=== PATIENT | female | born 1940 | race Asian ===

== ENCOUNTER 2017-11-20 14:41 | Inpatient (IN) | payer MEDICARE, OTHER ==
[2017-11-20] MEDS: IPRATROPIUM (NEB) 0.5 MG/2.5 ML AMP INH (14:55)
[2017-11-20] MEDS: ALBUTEROL 0.5% (NEB) 2.5 MG/0.5 ML AMP INH (14:55)
[2017-11-20 15:58] LABS: ABNORMAL IP MESSAGE 1; HEMATOCRIT 30.8 % (37.0-47.0); HEMOGLOBIN 10.1 g/dl (12.0-16.0); MEAN CORPUSCULAR HGB CONC 32.8 g/dl (32.0-37.0); MEAN CORPUSCULAR VOLUME 100.7 fl (82.0-101.0); MEAN PLATELET VOLUME 12.8 fl (7.4-10.4); PLATELET COUNT 73 10^3/UL (140-415); RED BLOOD COUNT 3.06 10^6/ul (4.20-5.40); RED CELL DISTRIBUTION WIDTH 14.4 % (11.5-14.5)
[2017-11-20 16:02] LABS: ADD MAN DIFF? YES; POSITIVE DIFF @See below
[2017-11-20 16:14] LABS: INR 1.23; PROTIME 15.7 Sec (11.9-14.9); PT RATIO 1.2
[2017-11-20] MEDS: METHYLPREDNISOLONE 125 MG INJ IV (16:14)
[2017-11-20] MEDS: CEFEPIME 2GM/50 ML (PMX) 50 ML IVPB (16:14)
[2017-11-20 16:15] LABS: PARTIAL THROMBOPLASTIN TIME 49.2 Sec (25.0-35.0)
[2017-11-20 16:55] LABS: ANISOCYTOSIS 2+ (0-0); BAND NEUTROPHILS #M 2.5 10^3/ul (0.0-0.6); BAND NEUTROPHILS % (M) 14 % (0-4); LYMPHOCYTES #M 0.5 10^3/ul (0.8-2.9); LYMPHOCYTES % (M) 3 % (15-51); MONOCYTE #M 1.9 10^3/ul (0.3-0.9); MONOCYTES % (M) 11 % (0-11); PLATELET ESTIMATE DECREASED; POLYCHROMASIA 1+ (0-0); REACTIVE LYMPHOCYTES #M 0.1 10^3/ul (0.0-0.0); REACTIVE LYMPHOCYTES% (M) 1 % (0-0); SEG NEUT #M 13.2 10^3/ul (1.7-7.5); SEGMENTED NEUTROPHILS (M) % 71 % (39-77); SMUDGE%M 1 % (0-0); TARGET CELLS 2+ (0-0)
[2017-11-20 17:01] LABS: LACTIC ACID 1.4 mmol/L (0.5-2.0)
[2017-11-20 17:26] LABS: ALANINE AMINOTRANSFERASE 81 IU/L (13-69); ALBUMIN 4.6 g/dl (3.3-4.9); ALBUMIN/GLOBULIN RATIO 1.24; ALKALINE PHOSPHATASE 248 IU/L (42-121); ANION GAP 18 (8-16); ASPARTATE AMINO TRANSFERASE 117 IU/L (15-46); BILIRUBIN,INDIRECT 0.4 mg/dl (0-1.1); BILIRUBIN,TOTAL 0.4 mg/dl (0.2-1.3); BLOOD UREA NITROGEN 22 mg/dl (7-20); CALCIUM 8.6 mg/dl (8.4-10.2); CARBON DIOXIDE 33 mmol/L (21-31); CHLORIDE 89 mmol/L (97-110); CREATININE 2.42 mg/dl (0.44-1.00); GLUCOSE 161 mg/dl (70-220); POTASSIUM 3.3 mmol/L (3.5-5.1); SODIUM 137 mmol/L (135-144); TOTAL PROTEIN 8.3 g/dl (6.1-8.1)
[2017-11-20] MEDS: VANCOMYCIN 1 GM (PMX) 250 ML IVPB (17:32)
[2017-11-20 17:51] LABS: TROPONIN-I 0.542 ng/ml (0.00-0.12)
[2017-11-20] MEDS: ONDANSETRON 4 MG INJ IV (17:57)
[2017-11-20] MEDS ORDERED: ONDANSETRON 4 MG INJ IV (18:00)
[2017-11-20] MEDS: ASPIRIN 81 MG TAB PO (18:00)
[2017-11-20] MEDS ORDERED: ACETAMINOPHEN 325 MG TAB PO (18:00)
[2017-11-20] MEDS ORDERED: GLUCOSE GEL 15 GRAM TUBE BUCCAL (23:30)
[2017-11-20] MEDS ORDERED: GLUCAGON 1 MG INJ IM (23:30)
[2017-11-20] MEDS ORDERED: GLUCOSE GEL 15 GRAM TUBE PO ×2 (23:30)
[2017-11-20] MEDS ORDERED: DEXTROSE 50% 50 ML SYRINGE IV ×2 (23:30)
[2017-11-20] MEDS: INSULIN DETEMIR [LEVEMIR] 3ML CART SC (23:30)
[2017-11-21 00:08] LABS: LACTIC ACID 1.4 mmol/L (0.5-2.0)
[2017-11-21] MEDS: LEVOFLOXACIN 500MG/D5W (PMX) 100 ML IVPB (00:35)
[2017-11-21] MEDS: ACCU-CHEK XX (02:00)
[2017-11-21 02:02] LABS: LACTIC ACID 1.1 mmol/L (0.5-2.0)
[2017-11-21] MEDS: LEVOTHYROXINE 125 MCG TAB PO (07:00)
[2017-11-21] MEDS: INSULIN ASPART [NOVOLOG] 3 ML PEN SC ×4 (08:00→21:00)
[2017-11-21] MEDS ORDERED: VANCOMYCIN IV PER PHARMACY XX (08:30)
[2017-11-21 09:06] LABS: ADD MAN DIFF? NO
[2017-11-21 09:09] LABS: ABNORMAL IP MESSAGE 1; BASOPHIL # 0.1 10^3/ul (0.0-0.1); BASOPHILS % 0.8 % (0.0-2.0); HEMATOCRIT 32.3 % (37.0-47.0); HEMOGLOBIN 10.9 g/dl (12.0-16.0); LYMPHOCYTES # 0.2 10^3/ul (0.8-2.9); LYMPHOCYTES % 1.3 % (15.0-51.0); MEAN CORPUSCULAR HEMOGLOBIN 33.5 pg (29.0-33.0); MEAN CORPUSCULAR HGB CONC 33.7 g/dl (32.0-37.0); MEAN CORPUSCULAR VOLUME 99.4 fl (82.0-101.0); MEAN PLATELET VOLUME 12.6 fl (7.4-10.4); MONOCYTE # 0.8 10^3/ul (0.3-0.9); MONOCYTES % 4.9 % (0.0-11.0); NEUTROPHIL # 13.4 10^3/ul (1.6-7.5); NEUTROPHILS % 84.7 % (39.0-77.0); NUCLEATED RED BLOOD CELLS% 0.1 /100WBC (0.0-0.0); PLATELET COUNT 56 10^3/UL (140-415); RED BLOOD COUNT 3.25 10^6/ul (4.20-5.40); RED CELL DISTRIBUTION WIDTH 14.2 % (11.5-14.5)
[2017-11-21 09:09] LABS: WHITE BLOOD COUNT 15.8 10^3/ul (4.8-10.8)
[2017-11-21 09:20] LABS: POSITIVE DIFF @See below
[2017-11-21] MEDS: SEVELAMER CARBONATE 0.8 GM PKT PO ×3 (09:33→21:31)
[2017-11-21] MEDS: LISINOPRIL 10 MG TAB PO (09:34)
[2017-11-21] MEDS: FUROSEMIDE 40 MG TAB PO (09:34)
[2017-11-21] MEDS: AMLODIPINE 10 MG TAB PO (09:34)
[2017-11-21] MEDS: FOLIC ACID 1 MG TAB PO (09:34)
[2017-11-21] MEDS: MULTIVIT/CA CARB/B CMPLX/FA TAB PO (09:35)
[2017-11-21] MEDS: ALLOPURINOL 100 MG TAB PO (09:35)
[2017-11-21] MEDS: ASPIRIN (EC) 81 MG TAB PO (09:35)
[2017-11-21 10:46] LABS: ANISOCYTOSIS 2+ (0-0); BAND NEUTROPHILS #M 4.5 10^3/ul (0.0-0.6); BAND NEUTROPHILS % (M) 29 % (0-4); GIANT THROMBO% (M) 2 % (0-0); MYELOCYTES #M 0.1 10^3/ul (0.0-0.0); MYELOCYTES % (M) 1 % (0-0); PLATELET ESTIMATE SIG DECREASED; POLYCHROMASIA 2+ (0-0); SEG NEUT #M 11.8 10^3/ul (1.7-7.5); SEGMENTED NEUTROPHILS (M) % 70 % (39-77); TARGET CELLS 1+ (0-0)
[2017-11-21] MEDS: ACETAMINOPHEN 325 MG TAB PO (14:42)
[2017-11-21] MEDS: ALBUTEROL/IPRATROPIUM (NEB) 3 ML AMP HHN ×2 (17:11→21:00)
[2017-11-21 17:56] LABS: ADD UMIC YES; UR ASCORBIC ACID NEGATIVE (NEGATIVE); UR BACTERIA FEW /HPF (NONE SEEN); UR BILIRUBIN (Dip) 1+ mg/dL (NEGATIVE); UR BLOOD (Dip) 1+ mg/dL (NEGATIVE); UR CLARITY CLOUDY (CLEAR); UR COLOR AMBER (YELLOW); UR GLUCOSE (Dip) 1+ mg/dL (NEGATIVE); UR KETONES (Dip) TRACE mg/dL (NEGATIVE); UR LEUKOCYTE ESTERASE (Dip) TRACE Leu/ul (NEGATIVE); UR NITRITE (Dip) NEGATIVE (NEGATIVE); UR RBC 1 /HPF (0-5); UR SPECIFIC GRAVITY (Dip) 1.025 (1.003-1.030); UR SQUAMOUS EPITHELIAL CELL FEW /HPF (FEW); UR TOTAL PROTEIN (Dip) 2+ mg/dl (NEGATIVE); UR UROBILINOGEN (Dip) NEGATIVE (NEGATIVE); UR WBC 7 /HPF (0-5)
[2017-11-21] MEDS: ATORVASTATIN 40 MG TAB PO (21:31)
[2017-11-21] MEDS: INSULIN DETEMIR [LEVEMIR] 3ML CART SC (21:39)
[2017-11-22] MEDS: ALBUTEROL/IPRATROPIUM (NEB) 3 ML AMP HHN ×6 (00:40→21:16)
[2017-11-22] MEDS: ACCU-CHEK XX (02:00)
[2017-11-22 05:25] LABS: ABNORMAL IP MESSAGE 1; HEMATOCRIT 28.4 % (37.0-47.0); HEMOGLOBIN 9.4 g/dl (12.0-16.0); MEAN CORPUSCULAR HGB CONC 33.1 g/dl (32.0-37.0); MEAN CORPUSCULAR VOLUME 99.6 fl (82.0-101.0); MEAN PLATELET VOLUME 14.2 fl (7.4-10.4); NUCLEATED RED BLOOD CELLS% 0.1 /100WBC (0.0-0.0); PLATELET COUNT 55 10^3/UL (140-415); RED BLOOD COUNT 2.85 10^6/ul (4.20-5.40); RED CELL DISTRIBUTION WIDTH 14.3 % (11.5-14.5)
[2017-11-22 05:25] LABS: WHITE BLOOD COUNT 17.3 10^3/ul (4.8-10.8)
[2017-11-22 05:46] LABS: ANION GAP 20 (8-16); BLOOD UREA NITROGEN 50 mg/dl (7-20); CALCIUM 8.7 mg/dl (8.4-10.2); CARBON DIOXIDE 30 mmol/L (21-31); CHLORIDE 90 mmol/L (97-110); CREATININE 4.13 mg/dl (0.44-1.00); GLUCOSE 137 mg/dl (70-220); POTASSIUM 3.9 mmol/L (3.5-5.1); SODIUM 136 mmol/L (135-144)
[2017-11-22 05:59] LABS: VANCOMYCIN,RANDOM < 5.0 ug/ml
[2017-11-22 06:50] LABS: POSITIVE DIFF @See below
[2017-11-22 06:51] LABS: ADD MAN DIFF? YES
[2017-11-22] MEDS: LEVOTHYROXINE 125 MCG TAB PO (07:46)
[2017-11-22] MEDS: INSULIN ASPART [NOVOLOG] 3 ML PEN SC ×4 (07:50→21:00)
[2017-11-22] MEDS: SEVELAMER CARBONATE 0.8 GM PKT PO ×3 (09:14→21:00)
[2017-11-22] MEDS: MULTIVIT/CA CARB/B CMPLX/FA TAB PO (09:14)
[2017-11-22] MEDS: FUROSEMIDE 40 MG TAB PO (09:15)
[2017-11-22] MEDS: LISINOPRIL 10 MG TAB PO (09:15)
[2017-11-22] MEDS: ASPIRIN (EC) 81 MG TAB PO (09:15)
[2017-11-22] MEDS: ALLOPURINOL 100 MG TAB PO (09:15)
[2017-11-22] MEDS: FOLIC ACID 1 MG TAB PO (09:16)
[2017-11-22 10:33] LABS: ANISOCYTOSIS 1+ (0-0); BAND NEUTROPHILS #M 2.5 10^3/ul (0.0-0.6); BAND NEUTROPHILS % (M) 15 % (0-4); GIANT THROMBO% (M) 1 % (0-0); LYMPHOCYTES #M 0.3 10^3/ul (0.8-2.9); LYMPHOCYTES % (M) 2 % (15-51); METAMYELOCYTES #M 0.3 10^3/ul (0.0-0.0); METAMYELOCYTES %M 2 % (0-0); MONOCYTE #M 0.5 10^3/ul (0.3-0.9); MONOCYTES % (M) 3 % (0-11); MYELOCYTES #M 0.1 10^3/ul (0.0-0.0); MYELOCYTES % (M) 1 % (0-0); PLATELET ESTIMATE DECREASED; PLATELET MORPHOLOGY COMMENT @See below; POLYCHROMASIA 1+ (0-0); SEG NEUT #M 13.8 10^3/ul (1.7-7.5); SEGMENTED NEUTROPHILS (M) % 77 % (39-77); SMUDGE%M 3 % (0-0); TARGET CELLS 1+ (0-0)
[2017-11-22] MEDS: CEFTRIAXONE 1 GM/50 ML (PMX) 50 ML IVPB (11:28)
[2017-11-22] MEDS: VANCOMYCIN 1.25 GM in SOD CHLORIDE 0.45% 250 ML IVPB ×2 (12:13→12:15)
[2017-11-22 17:08] LABS: ABNORMAL IP MESSAGE 1; HEMATOCRIT 30.5 % (37.0-47.0); HEMOGLOBIN 10.2 g/dl (12.0-16.0); MEAN CORPUSCULAR HEMOGLOBIN 33.1 pg (29.0-33.0); MEAN CORPUSCULAR HGB CONC 33.4 g/dl (32.0-37.0); MEAN PLATELET VOLUME 13.3 fl (7.4-10.4); NUCLEATED RED BLOOD CELLS% 0.4 /100WBC (0.0-0.0); PLATELET COUNT 51 10^3/UL (140-415); RED BLOOD COUNT 3.08 10^6/ul (4.20-5.40); RED CELL DISTRIBUTION WIDTH 14.4 % (11.5-14.5)
[2017-11-22 17:08] LABS: WHITE BLOOD COUNT 13.6 10^3/ul (4.8-10.8)
[2017-11-22 17:10] LABS: POSITIVE DIFF @See below
[2017-11-22 17:11] LABS: ADD MAN DIFF? YES
[2017-11-22 17:45] LABS: ANION GAP 21 (8-16); BLOOD UREA NITROGEN 69 mg/dl (7-20); CARBON DIOXIDE 30 mmol/L (21-31); CHLORIDE 89 mmol/L (97-110); CREATININE 4.91 mg/dl (0.44-1.00); GLUCOSE 152 mg/dl (70-220); MAGNESIUM 1.8 mg/dl (1.7-2.5); PHOSPHORUS 1.8 mg/dl (2.5-4.9); POTASSIUM 4.1 mmol/L (3.5-5.1); SODIUM 136 mmol/L (135-144)
[2017-11-22] MEDS: DEXTROSE 5% 1,000 ML IV (18:09)
[2017-11-22 18:11] LABS: ANISOCYTOSIS 2+ (0-0); BAND NEUTROPHILS #M 1.2 10^3/ul (0.0-0.6); BAND NEUTROPHILS % (M) 9 % (0-4); ERYTHROBLAST% (NRBC) (M) 2 % (0-0); HYPOCHROMASIA 1+ (0-0); LYMPHOCYTES #M 0.9 10^3/ul (0.8-2.9); LYMPHOCYTES % (M) 7 % (15-51); MONOCYTE #M 0.5 10^3/ul (0.3-0.9); MONOCYTES % (M) 4 % (0-11); PLATELET ESTIMATE DECREASED; POLYCHROMASIA 2+ (0-0); SEG NEUT #M 10.9 10^3/ul (1.7-7.5); SEGMENTED NEUTROPHILS (M) % 79 % (39-77); SMUDGE%M 8 % (0-0)
[2017-11-22 18:19] LABS: AADO2 Arterial 95.6 mmHg (7.0-24.0); Allen Test ACCEPTAB; Arterial Base Excess 2.5 mmol/L (-3.0-3); Arterial Blood Gas Oxygen Sat 95.4 mmHG (95.0-100.0); Arterial COHb 0.3 % (0.0-3.0); Arterial HCO3 28.8 mmol/L (22.0-26.0); Arterial MetHb 0.1 % (0.0-1.5); Arterial Total Hemglobin 10.5 g/dl (12.0-18.0); Arterial pCO2 52.7 mmhg (35-45); MODE NASAL CANNULA; Site Right Radial
[2017-11-22 19:07] LABS: AMMONIA 15 umol/l (9-30)
[2017-11-22] MEDS: INSULIN DETEMIR [LEVEMIR] 3ML CART SC (21:00)
[2017-11-22] MEDS: ATORVASTATIN 40 MG TAB PO (21:00)
[2017-11-22 22:07] LABS: AADO2 Arterial 148.5 mmHg (7.0-24.0); Allen Test ACCEPTAB; Arterial Base Excess 2.3 mmol/L (-3.0-3); Arterial Blood Gas Oxygen Sat 89.1 mmHG (95.0-100.0); Arterial COHb 0.7 % (0.0-3.0); Arterial Fraction of Oxyhgb 88.4 % (93.0-99.0); Arterial HCO3 29.9 mmol/L (22.0-26.0); Arterial MetHb 0.1 % (0.0-1.5); Arterial Total Hemglobin 12.2 g/dl (12.0-18.0); Arterial pCO2 61.2 mmhg (35-45); MODE NASAL CANNULA; Site Right Radial
[2017-11-22] MEDS: SOD CHLORIDE 0.9% 250 ML IV (23:00)
[2017-11-22] MEDS ORDERED: NORepinephrine 8MG/250 ML (PMX 250 ML (23:01)
[2017-11-22] MEDS: SUCCINYLCHOLINE CHLORIDE 100 MG/5 ML SYG IV (23:30)
[2017-11-22] MEDS ORDERED: PROPOFOL 100 ML (23:31)
[2017-11-23 01:00] LABS: AADO2 Arterial 276.6 mmHg (7.0-24.0); Allen Test ACCEPTAB; Arterial Base Excess 1.3 mmol/L (-3.0-3); Arterial Blood Gas Oxygen Sat 99.7 mmHG (95.0-100.0); Arterial COHb 0.3 % (0.0-3.0); Arterial Fraction of Oxyhgb 99.3 % (93.0-99.0); Arterial HCO3 25.9 mmol/L (22.0-26.0); Arterial MetHb 0.1 % (0.0-1.5); Arterial Total Hemglobin 10.7 g/dl (12.0-18.0); Arterial pCO2 40.6 mmhg (35-45); Blood Gas Low PEEP Setting 0 cmH2O; MODE VENT - AC; Site Right Radial
[2017-11-23] MEDS: ALBUTEROL HFA 8 GM INHALER INH ×6 (01:04→20:53)
[2017-11-23] MEDS: IPRATROPIUM (HFA) 12.9 GM INHALER INH ×6 (01:04→20:53)
[2017-11-23] MEDS: LEVOFLOXACIN 500MG/D5W (PMX) 100 ML IVPB (01:16)
[2017-11-23] MEDS: PROPOFOL 100 ML IV ×3 (01:32→20:12)
[2017-11-23] MEDS ORDERED: DEXTROSE 50% 50 ML SYRINGE IV ×2 (02:00)
[2017-11-23] MEDS: ACCU-CHEK XX ×22 (02:00→23:00)
[2017-11-23] MEDS: NACL 3% FOR INHALATION 15 ML NEBU NEB (02:00)
[2017-11-23] MEDS: INSULIN HUMAN REGULAR 100 UNIT in SOD CHLORIDE 0.9% 99 ML IV ×2 (05:11→17:07)
[2017-11-23 06:04] LABS: ABNORMAL IP MESSAGE 1; HEMATOCRIT 28.5 % (37.0-47.0); HEMOGLOBIN 9.7 g/dl (12.0-16.0); MEAN CORPUSCULAR HEMOGLOBIN 33.1 pg (29.0-33.0); MEAN CORPUSCULAR VOLUME 97.3 fl (82.0-101.0); NUCLEATED RED BLOOD CELLS% 0.6 /100WBC (0.0-0.0); PLATELET COUNT 45 10^3/UL (140-415); RED BLOOD COUNT 2.93 10^6/ul (4.20-5.40); RED CELL DISTRIBUTION WIDTH 14.1 % (11.5-14.5)
[2017-11-23 06:04] LABS: WHITE BLOOD COUNT 14.2 10^3/ul (4.8-10.8)
[2017-11-23 06:53] LABS: POSITIVE DIFF @See below
[2017-11-23 06:54] LABS: ADD MAN DIFF? YES
[2017-11-23] MEDS: LEVOTHYROXINE 125 MCG TAB PO (07:00)
[2017-11-23 07:27] LABS: ANION GAP 21 (8-16); BLOOD UREA NITROGEN 84 mg/dl (7-20); CALCIUM 8.3 mg/dl (8.4-10.2); CARBON DIOXIDE 24 mmol/L (21-31); CHLORIDE 86 mmol/L (97-110); CREATININE 5.13 mg/dl (0.44-1.00); GLUCOSE 242 mg/dl (70-220); POTASSIUM 4.2 mmol/L (3.5-5.1); SODIUM 127 mmol/L (135-144)
[2017-11-23 08:07] LABS: ANISOCYTOSIS 3+ (0-0); BAND NEUTROPHILS #M 0.9 10^3/ul (0.0-0.6); BAND NEUTROPHILS % (M) 7 % (0-4); ERYTHROBLAST% (NRBC) (M) 1 % (0-0); HYPOCHROMASIA 1+ (0-0); LYMPHOCYTES #M 0.8 10^3/ul (0.8-2.9); LYMPHOCYTES % (M) 6 % (15-51); MONOCYTE #M 1.2 10^3/ul (0.3-0.9); MONOCYTES % (M) 9 % (0-11); PLATELET ESTIMATE DECREASED; POIKILOCYTOSIS 1+ (0-0); POLYCHROMASIA 3+ (0-0); SEG NEUT #M 11.2 10^3/ul (1.7-7.5); SEGMENTED NEUTROPHILS (M) % 78 % (39-77); SMUDGE%M 14 % (0-0)
[2017-11-23] MEDS: CEFTRIAXONE 1 GM/50 ML (PMX) 50 ML IVPB (10:16)
[2017-11-23] MEDS: SEVELAMER CARBONATE 0.8 GM PKT PO ×3 (13:00→21:42)
[2017-11-23] MEDS: FUROSEMIDE 40 MG TAB PO (14:48)
[2017-11-23] MEDS: FOLIC ACID 1 MG TAB PO (14:49)
[2017-11-23] MEDS: MULTIVIT/CA CARB/B CMPLX/FA TAB PO (14:49)
[2017-11-23] MEDS: LISINOPRIL 10 MG TAB PO (14:49)
[2017-11-23] MEDS: ALLOPURINOL 100 MG TAB PO (14:49)
[2017-11-23] MEDS: ASPIRIN 81 MG TAB NGT (15:05)
[2017-11-23 15:23] LABS: CREATINE KINASE 116 IU/L (23-200)
[2017-11-23 15:34] LABS: CK INDEX 2.5
[2017-11-23 15:40] LABS: CK-MB 2.95 ng/ml (0.0-2.4)
[2017-11-23] MEDS: SOD CHLORIDE 0.9% 500 ML IV (19:00)
[2017-11-23] MEDS ORDERED: ALBUMIN HUMAN 25% 100 ML IV (19:00)
[2017-11-23] MEDS: ATORVASTATIN 40 MG TAB PO (21:42)
[2017-11-24] MEDS: IPRATROPIUM (HFA) 12.9 GM INHALER INH ×6 (01:05→20:05)
[2017-11-24] MEDS: ALBUTEROL HFA 8 GM INHALER INH ×6 (01:05→20:05)
[2017-11-24 06:55] LABS: WHITE BLOOD COUNT 15.9 10^3/ul (4.8-10.8)
[2017-11-24 06:55] LABS: ABNORMAL IP MESSAGE 1; HEMATOCRIT 28.9 % (37.0-47.0); HEMOGLOBIN 10.1 g/dl (12.0-16.0); MEAN CORPUSCULAR HEMOGLOBIN 33.6 pg (29.0-33.0); MEAN CORPUSCULAR HGB CONC 34.9 g/dl (32.0-37.0); NUCLEATED RED BLOOD CELLS% 0.6 /100WBC (0.0-0.0); RED BLOOD COUNT 3.01 10^6/ul (4.20-5.40)
[2017-11-24 07:09] LABS: PLATELET COUNT 48 10^3/UL (140-415); POSITIVE DIFF @See below
[2017-11-24 07:10] LABS: ADD MAN DIFF? YES; CREATINE KINASE 88 IU/L (23-200)
[2017-11-24 07:13] LABS: VANCOMYCIN,RANDOM 12.9 ug/ml
[2017-11-24 07:24] LABS: CK-MB 2.66 ng/ml (0.0-2.4)
[2017-11-24] MEDS: ACCU-CHEK XX ×9 (07:24→14:15)
[2017-11-24 08:00] LABS: ANION GAP 21 (8-16); BLOOD UREA NITROGEN 72 mg/dl (7-20); CALCIUM 9.1 mg/dl (8.4-10.2); CARBON DIOXIDE 25 mmol/L (21-31); CHLORIDE 98 mmol/L (97-110); CREATININE 4.33 mg/dl (0.44-1.00); GLUCOSE 94 mg/dl (70-220); POTASSIUM 3.8 mmol/L (3.5-5.1); SODIUM 140 mmol/L (135-144)
[2017-11-24] MEDS: LEVOTHYROXINE 125 MCG TAB PO (08:01)
[2017-11-24] MEDS: ACETAMINOPHEN 325 MG TAB PO (08:07)
[2017-11-24] MEDS: LISINOPRIL 10 MG TAB PO (09:00)
[2017-11-24] MEDS: MULTIVIT/CA CARB/B CMPLX/FA TAB PO (09:34)
[2017-11-24] MEDS: SEVELAMER CARBONATE 0.8 GM PKT PO ×3 (09:34→21:08)
[2017-11-24] MEDS: CEFTRIAXONE 1 GM/50 ML (PMX) 50 ML IVPB (09:34)
[2017-11-24] MEDS: ALLOPURINOL 100 MG TAB PO (09:35)
[2017-11-24] MEDS: FOLIC ACID 1 MG TAB PO (09:35)
[2017-11-24] MEDS: ASPIRIN 81 MG TAB NGT (09:35)
[2017-11-24] MEDS: FUROSEMIDE 40 MG TAB PO (09:35)
[2017-11-24 09:43] LABS: ANISOCYTOSIS 3+ (0-0); BAND NEUTROPHILS #M 2.2 10^3/ul (0.0-0.6); BAND NEUTROPHILS % (M) 14 % (0-4); HYPOCHROMASIA 1+ (0-0); LYMPHOCYTES #M 0.1 10^3/ul (0.8-2.9); LYMPHOCYTES % (M) 1 % (15-51); METAMYELOCYTES #M 0.3 10^3/ul (0.0-0.0); METAMYELOCYTES %M 2 % (0-0); MONOCYTE #M 1.9 10^3/ul (0.3-0.9); MONOCYTES % (M) 12 % (0-11); PLATELET ESTIMATE SIG DECREASED; POIKILOCYTOSIS 1+ (0-0); POLYCHROMASIA 1+ (0-0); PROMYELOCYTES #M 0.4 10^3/ul (0-0); PROMYELOCYTES % (M) 3 % (0-0); REACTIVE LYMPHOCYTES #M 0.3 10^3/ul (0.0-0.0); REACTIVE LYMPHOCYTES% (M) 2 % (0-0); SEG NEUT #M 10.8 10^3/ul (1.7-7.5); SEGMENTED NEUTROPHILS (M) % 66 % (39-77); SMUDGE%M 2 % (0-0); TARGET CELLS 1+ (0-0)
[2017-11-24] MEDS: ALBUMIN HUMAN 25% 50 ML IV (10:36)
[2017-11-24] MEDS: CEFEPIME 1GM/50 ML (PMX) 50 ML IVPB (11:26)
[2017-11-24] MEDS: VANCOMYCIN 1 GM 250 ML IVPB (12:35)
[2017-11-24] MEDS: INSULIN GLARGINE [LANtus] 3 ML PEN SC (12:38)
[2017-11-24] MEDS ORDERED: GLUCOSE GEL 15 GRAM TUBE PO ×2 (15:00)
[2017-11-24] MEDS ORDERED: GLUCAGON 1 MG INJ IM (15:00)
[2017-11-24] MEDS ORDERED: GLUCOSE GEL 15 GRAM TUBE BUCCAL (15:00)
[2017-11-24] MEDS: INSULIN ASPART [NOVOLOG] 3 ML PEN SC ×2 (17:09→21:11)
[2017-11-24 17:39] LABS: INR 1.13; PROTIME 14.7 Sec (11.9-14.9); PT RATIO 1.1
[2017-11-24 17:40] LABS: PARTIAL THROMBOPLASTIN TIME 37.4 Sec (25.0-35.0)
[2017-11-24 17:44] LABS: CREATINE KINASE 78 IU/L (23-200)
[2017-11-24 17:57] LABS: CK INDEX 3.1
[2017-11-24] MEDS: ATORVASTATIN 40 MG TAB PO (21:07)
[2017-11-24] MEDS: PROPOFOL 100 ML IV (21:48)
[2017-11-24] MEDS: SOD CHLORIDE 0.9% IVPB (22:56)
[2017-11-24] MEDS: DESMOPRESSIN IVPB (22:56)
[2017-11-24] MEDS: LEVOFLOXACIN 500MG/D5W (PMX) 100 ML IVPB (22:59)
[2017-11-24 23:24] LABS: IMMEDIATE SPIN CROSSMATCH 1 1
[2017-11-25] MEDS: INSULIN ASPART [NOVOLOG] 3 ML PEN SC ×6 (01:00→21:00)
[2017-11-25] MEDS: ALBUTEROL HFA 8 GM INHALER INH ×2 (01:14→04:42)
[2017-11-25] MEDS: IPRATROPIUM (HFA) 12.9 GM INHALER INH ×2 (01:14→04:42)
[2017-11-25] MEDS: ACCU-CHEK XX ×2 (02:00)
[2017-11-25 02:39] LABS: ADD MAN DIFF? NO
[2017-11-25 02:43] LABS: ABNORMAL IP MESSAGE 1; BASOPHILS % 0.1 % (0.0-2.0); EOSINOPHILS % 0.1 % (0.0-7.0); HEMATOCRIT 25.1 % (37.0-47.0); HEMOGLOBIN 8.8 g/dl (12.0-16.0); LYMPHOCYTES # 0.3 10^3/ul (0.8-2.9); MEAN CORPUSCULAR HEMOGLOBIN 33.7 pg (29.0-33.0); MEAN CORPUSCULAR HGB CONC 35.1 g/dl (32.0-37.0); MEAN CORPUSCULAR VOLUME 96.2 fl (82.0-101.0); MEAN PLATELET VOLUME 12.5 fl (7.4-10.4); MONOCYTE # 0.9 10^3/ul (0.3-0.9); NEUTROPHIL # 13.3 10^3/ul (1.6-7.5); NEUTROPHILS % 85.7 % (39.0-77.0); NUCLEATED RED BLOOD CELLS% 0.3 /100WBC (0.0-0.0); PLATELET COUNT 84 10^3/UL (140-415); RED BLOOD COUNT 2.61 10^6/ul (4.20-5.40); RED CELL DISTRIBUTION WIDTH 14.1 % (11.5-14.5)
[2017-11-25 02:43] LABS: WHITE BLOOD COUNT 15.6 10^3/ul (4.8-10.8)
[2017-11-25 02:56] LABS: POSITIVE DIFF @See below
[2017-11-25 03:11] LABS: CREATINE KINASE 88 IU/L (23-200)
[2017-11-25 03:12] LABS: ANION GAP 22 (8-16); BLOOD UREA NITROGEN 88 mg/dl (7-20); CALCIUM 8.7 mg/dl (8.4-10.2); CARBON DIOXIDE 25 mmol/L (21-31); CHLORIDE 95 mmol/L (97-110); CREATININE 5.19 mg/dl (0.44-1.00); GLUCOSE 270 mg/dl (70-220); POTASSIUM 3.3 mmol/L (3.5-5.1); SODIUM 139 mmol/L (135-144)
[2017-11-25 03:22] LABS: CK INDEX 2.6; CK-MB 2.33 ng/ml (0.0-2.4)
[2017-11-25 04:04] LABS: MAGNESIUM 1.9 mg/dl (1.7-2.5)
[2017-11-25] MEDS: PROPOFOL 100 ML IV ×2 (06:33→13:00)
[2017-11-25] MEDS: LEVOTHYROXINE 125 MCG TAB PO ×2 (07:00→08:31)
[2017-11-25] MEDS ORDERED: ALBUTEROL HFA 8 GM INHALER INH (08:00)
[2017-11-25] MEDS: ALLOPURINOL 100 MG TAB PO ×2 (08:32→09:00)
[2017-11-25] MEDS: INSULIN GLARGINE [LANtus] 3 ML PEN SC ×2 (08:32→13:00)
[2017-11-25] MEDS: CEFEPIME 1GM/50 ML (PMX) 50 ML IVPB (08:32)
[2017-11-25] MEDS: ASPIRIN 81 MG TAB NGT ×2 (08:33→09:00)
[2017-11-25] MEDS: SEVELAMER CARBONATE 0.8 GM PKT PO ×3 (08:33→20:32)
[2017-11-25] MEDS: MULTIVIT/CA CARB/B CMPLX/FA TAB PO ×2 (08:33→09:00)
[2017-11-25] MEDS: FOLIC ACID 1 MG TAB PO ×2 (08:34→09:00)
[2017-11-25] MEDS: FUROSEMIDE 40 MG TAB PO (08:35)
[2017-11-25] MEDS: LISINOPRIL 10 MG TAB PO (09:00)
[2017-11-25] MEDS ORDERED: IPRATROPIUM (HFA) 12.9 GM INHALER INH (10:00)
[2017-11-25 11:23] LABS: AADO2 Arterial 64.5 mmHg (7.0-24.0); Allen Test ACCEPTAB; Arterial Base Excess -0.1 mmol/L (-3.0-3); Arterial Blood Gas Oxygen Sat 97.9 mmHG (95.0-100.0); Arterial COHb 0.1 % (0.0-3.0); Arterial Fraction of Oxyhgb 97.7 % (93.0-99.0); Arterial HCO3 24.1 mmol/L (22.0-26.0); Arterial MetHb 0.1 % (0.0-1.5); Arterial Total Hemglobin 10.1 g/dl (12.0-18.0); Arterial pCO2 37.3 mmhg (35-45); Blood Gas PS 10; MODE VENT - CPAP; Site Right Radial
[2017-11-25] MEDS: SOD PHOS MONO/DIBAS 250 MG TAB PO (14:00)
[2017-11-25] MEDS: POTASSIUM PHOSPHATE 40 MEQ in SOD CHLORIDE 0.9% 250 ML IVPB (14:46)
[2017-11-25] MEDS: ATORVASTATIN 40 MG TAB PO (20:32)
[2017-11-25 20:40] LABS: ANION GAP 18 (8-16); BLOOD UREA NITROGEN 51 mg/dl (7-20); CALCIUM 8.4 mg/dl (8.4-10.2); CARBON DIOXIDE 31 mmol/L (21-31); CHLORIDE 94 mmol/L (97-110); CREATININE 3.17 mg/dl (0.44-1.00); GLUCOSE 159 mg/dl (70-220); POTASSIUM 3.6 mmol/L (3.5-5.1); SODIUM 139 mmol/L (135-144)
[2017-11-26] MEDS: INSULIN ASPART [NOVOLOG] 3 ML PEN SC ×6 (01:00→22:03)
[2017-11-26] MEDS: ACCU-CHEK XX ×2 (01:01)
[2017-11-26 06:20] LABS: ABNORMAL IP MESSAGE 1; HEMOGLOBIN 8.3 g/dl (12.0-16.0); MEAN CORPUSCULAR HGB CONC 36.1 g/dl (32.0-37.0); MEAN CORPUSCULAR VOLUME 94.3 fl (82.0-101.0); MEAN PLATELET VOLUME 13.6 fl (7.4-10.4); NUCLEATED RED BLOOD CELLS% 0.3 /100WBC (0.0-0.0); PLATELET COUNT 72 10^3/UL (140-415); RED BLOOD COUNT 2.44 10^6/ul (4.20-5.40); RED CELL DISTRIBUTION WIDTH 13.7 % (11.5-14.5)
[2017-11-26 06:44] LABS: ANION GAP 20 (8-16); BLOOD UREA NITROGEN 62 mg/dl (7-20); CALCIUM 8.3 mg/dl (8.4-10.2); CARBON DIOXIDE 30 mmol/L (21-31); CHLORIDE 95 mmol/L (97-110); CREATININE 4.26 mg/dl (0.44-1.00); GLUCOSE 130 mg/dl (70-220); POTASSIUM 3.6 mmol/L (3.5-5.1); SODIUM 141 mmol/L (135-144)
[2017-11-26 06:47] LABS: MAGNESIUM 1.8 mg/dl (1.7-2.5)
[2017-11-26 06:47] LABS: PHOSPHORUS 2.3 mg/dl (2.5-4.9)
[2017-11-26 07:10] LABS: ADD MAN DIFF? YES; POSITIVE DIFF @See below
[2017-11-26] MEDS: BRIMONIDINE 0.2%-TIMOLOL 0.5% 5ML OPH RIGHT EYE ×2 (09:00→22:00)
[2017-11-26 09:15] LABS: ANISOCYTOSIS 2+ (0-0); BAND NEUTROPHILS #M 0.9 10^3/ul (0.0-0.6); BAND NEUTROPHILS % (M) 6 % (0-4); EOSINOPHILS % (M) 1 % (0-7); HYPOCHROMASIA 3+ (0-0); MONOCYTE #M 0.9 10^3/ul (0.3-0.9); MONOCYTES % (M) 6 % (0-11); PLATELET ESTIMATE DECREASED; POLYCHROMASIA 1+ (0-0); SEG NEUT #M 13.2 10^3/ul (1.7-7.5); SEGMENTED NEUTROPHILS (M) % 87 % (39-77); SMUDGE%M 1 % (0-0); TARGET CELLS 3+ (0-0)
[2017-11-26] MEDS: DORZOLAMIDE 2% 10 ML OPH RIGHT EYE (09:21)
[2017-11-26] MEDS: CEFEPIME 1GM/50 ML (PMX) 50 ML IVPB (09:21)
[2017-11-26] MEDS: SEVELAMER CARBONATE 0.8 GM PKT PO ×3 (09:21→22:00)
[2017-11-26] MEDS: ALLOPURINOL 100 MG TAB PO (09:22)
[2017-11-26] MEDS: MULTIVIT/CA CARB/B CMPLX/FA TAB PO (09:22)
[2017-11-26] MEDS: LEVOTHYROXINE 125 MCG TAB PO (09:22)
[2017-11-26] MEDS: FOLIC ACID 1 MG TAB PO (09:22)
[2017-11-26] MEDS: ASPIRIN 81 MG TAB NGT (09:23)
[2017-11-26] MEDS: INSULIN GLARGINE [LANtus] 3 ML PEN SC (09:26)
[2017-11-26] MEDS: ACETAMINOPHEN 325 MG TAB PO (17:57)
[2017-11-26] MEDS: ATORVASTATIN 40 MG TAB PO (22:04)
[2017-11-26] MEDS: LATANOPROST 0.005% 2.5 ML OPH BOTH EYES (22:37)
[2017-11-26] MEDS: LEVOFLOXACIN 500MG/D5W (PMX) 100 ML IVPB (22:49)
[2017-11-27] MEDS: INSULIN ASPART [NOVOLOG] 3 ML PEN SC ×6 (01:08→20:36)
[2017-11-27] MEDS: ACCU-CHEK XX ×2 (01:08)
[2017-11-27 06:21] LABS: ADD MAN DIFF? NO
[2017-11-27 06:30] LABS: ABNORMAL IP MESSAGE 1; BASOPHIL # 0.1 10^3/ul (0.0-0.1); BASOPHILS % 0.9 % (0.0-2.0); EOSINOPHILS % 0.2 % (0.0-7.0); HEMATOCRIT 24.7 % (37.0-47.0); HEMOGLOBIN 8.4 g/dl (12.0-16.0); LYMPHOCYTES # 0.4 10^3/ul (0.8-2.9); LYMPHOCYTES % 2.9 % (15.0-51.0); MEAN CORPUSCULAR HEMOGLOBIN 32.6 pg (29.0-33.0); MEAN CORPUSCULAR VOLUME 95.7 fl (82.0-101.0); MEAN PLATELET VOLUME 13.7 fl (7.4-10.4); MONOCYTE # 1.2 10^3/ul (0.3-0.9); MONOCYTES % 8.8 % (0.0-11.0); NEUTROPHIL # 11.1 10^3/ul (1.6-7.5); NEUTROPHILS % 84.7 % (39.0-77.0); RED BLOOD COUNT 2.58 10^6/ul (4.20-5.40); RED CELL DISTRIBUTION WIDTH 14.2 % (11.5-14.5)
[2017-11-27 06:30] LABS: WHITE BLOOD COUNT 13.2 10^3/ul (4.8-10.8)
[2017-11-27 06:43] LABS: PLATELET COUNT 88 10^3/UL (140-415); POSITIVE DIFF @See below
[2017-11-27] MEDS: LEVOTHYROXINE 125 MCG TAB PO (06:49)
[2017-11-27 07:06] LABS: ANION GAP 21 (8-16); BLOOD UREA NITROGEN 93 mg/dl (7-20); CALCIUM 8.1 mg/dl (8.4-10.2); CARBON DIOXIDE 26 mmol/L (21-31); CHLORIDE 94 mmol/L (97-110); CREATININE 5.59 mg/dl (0.44-1.00); GLUCOSE 132 mg/dl (70-220); POTASSIUM 3.9 mmol/L (3.5-5.1); SODIUM 137 mmol/L (135-144)
[2017-11-27 07:16] LABS: VANCOMYCIN,RANDOM 15.1 ug/ml
[2017-11-27 07:56] LABS: PHOSPHORUS 3.1 mg/dl (2.5-4.9)
[2017-11-27 07:56] LABS: MAGNESIUM 1.9 mg/dl (1.7-2.5)
[2017-11-27] MEDS: INSULIN GLARGINE [LANtus] 3 ML PEN SC (08:26)
[2017-11-27] MEDS: ASPIRIN 81 MG TAB NGT (09:00)
[2017-11-27] MEDS: FOLIC ACID 1 MG TAB PO (09:00)
[2017-11-27] MEDS: MULTIVIT/CA CARB/B CMPLX/FA TAB PO ×2 (09:00)
[2017-11-27] MEDS: SEVELAMER CARBONATE 0.8 GM PKT PO ×3 (09:00→21:00)
[2017-11-27] MEDS: ALLOPURINOL 100 MG TAB PO (09:00)
[2017-11-27] MEDS: BRIMONIDINE 0.2%-TIMOLOL 0.5% 5ML OPH RIGHT EYE ×2 (12:24→21:52)
[2017-11-27] MEDS: CEFEPIME 1GM/50 ML (PMX) 50 ML IVPB (12:32)
[2017-11-27] MEDS: ALBUTEROL/IPRATROPIUM (NEB) 3 ML AMP HHN (18:00)
[2017-11-27] MEDS: SOD CHLORIDE 0.9% 200 ML IV (20:33)
[2017-11-27] MEDS: ATORVASTATIN 40 MG TAB PO (21:00)
[2017-11-27] MEDS: VANCOMYCIN 1 GM 250 ML IVPB (21:42)
[2017-11-27] MEDS: LATANOPROST 0.005% 2.5 ML OPH BOTH EYES (21:52)
[2017-11-27] MEDS: SOD CHLORIDE 0.9% 250 ML IV (21:54)
[2017-11-27] MEDS: MIDODRINE 5 MG TAB PO (22:45)
[2017-11-28] MEDS: INSULIN ASPART [NOVOLOG] 3 ML PEN SC ×6 (01:00→20:32)
[2017-11-28] MEDS ORDERED: VITAMIN A & D 5 GM OINT PACKET TOP (04:30)
[2017-11-28] MEDS: LEVOTHYROXINE 125 MCG TAB PO (04:48)
[2017-11-28] MEDS: MIDODRINE 5 MG TAB PO ×3 (04:48→23:25)
[2017-11-28] MEDS: SEVELAMER CARBONATE 0.8 GM PKT PO ×3 (08:11→20:31)
[2017-11-28] MEDS: ASPIRIN 81 MG TAB NGT (08:12)
[2017-11-28] MEDS: FOLIC ACID 1 MG TAB PO (08:12)
[2017-11-28] MEDS: CEFEPIME 1GM/50 ML (PMX) 50 ML IVPB (08:12)
[2017-11-28] MEDS: ALLOPURINOL 100 MG TAB PO (08:12)
[2017-11-28] MEDS: MULTIVIT/CA CARB/B CMPLX/FA TAB PO (08:12)
[2017-11-28] MEDS: BRIMONIDINE 0.2%-TIMOLOL 0.5% 5ML OPH RIGHT EYE ×2 (08:13→20:31)
[2017-11-28] MEDS: INSULIN GLARGINE [LANtus] 3 ML PEN SC (08:19)
[2017-11-28 10:05] LABS: ADD MAN DIFF? NO
[2017-11-28 10:16] LABS: ABNORMAL IP MESSAGE 1; BASOPHIL # 0.1 10^3/ul (0.0-0.1); BASOPHILS % 0.8 % (0.0-2.0); EOSINOPHILS % 0.1 % (0.0-7.0); HEMATOCRIT 23.5 % (37.0-47.0); HEMOGLOBIN 8.1 g/dl (12.0-16.0); LYMPHOCYTES # 0.4 10^3/ul (0.8-2.9); LYMPHOCYTES % 2.7 % (15.0-51.0); MEAN CORPUSCULAR HEMOGLOBIN 33.2 pg (29.0-33.0); MEAN CORPUSCULAR HGB CONC 34.5 g/dl (32.0-37.0); MEAN CORPUSCULAR VOLUME 96.3 fl (82.0-101.0); MEAN PLATELET VOLUME 14.7 fl (7.4-10.4); MONOCYTE # 1.4 10^3/ul (0.3-0.9); MONOCYTES % 8.6 % (0.0-11.0); PLATELET COUNT 65 10^3/UL (140-415); RED BLOOD COUNT 2.44 10^6/ul (4.20-5.40); RED CELL DISTRIBUTION WIDTH 14.3 % (11.5-14.5)
[2017-11-28 10:16] LABS: WHITE BLOOD COUNT 16.2 10^3/ul (4.8-10.8)
[2017-11-28 10:23] LABS: POSITIVE DIFF @See below
[2017-11-28 10:57] LABS: MAGNESIUM 1.9 mg/dl (1.7-2.5)
[2017-11-28 11:01] LABS: CREATINE KINASE 160 IU/L (23-200)
[2017-11-28 11:06] LABS: CK INDEX 1.1; CK-MB 1.71 ng/ml (0.0-2.4)
[2017-11-28 11:32] LABS: ANION GAP 20 (8-16); BLOOD UREA NITROGEN 65 mg/dl (7-20); CARBON DIOXIDE 25 mmol/L (21-31); CHLORIDE 98 mmol/L (97-110); GLUCOSE 112 mg/dl (70-220); POTASSIUM 3.6 mmol/L (3.5-5.1); SODIUM 139 mmol/L (135-144)
[2017-11-28] MEDS: ACETAMINOPHEN 325 MG TAB PO (17:53)
[2017-11-28] MEDS: ALBUMIN HUMAN 25% 100 ML IV (17:54)
[2017-11-28] MEDS: LATANOPROST 0.005% 2.5 ML OPH BOTH EYES (20:31)
[2017-11-28] MEDS: ATORVASTATIN 40 MG TAB PO (20:31)
[2017-11-28] MEDS: LEVOFLOXACIN 500MG/D5W (PMX) 100 ML IVPB (23:24)
[2017-11-29] MEDS: INSULIN ASPART [NOVOLOG] 3 ML PEN SC ×6 (01:00→21:00)
[2017-11-29] MEDS: LEVOTHYROXINE 125 MCG TAB PO (06:03)
[2017-11-29] MEDS: MIDODRINE 5 MG TAB PO ×4 (06:03→22:05)
[2017-11-29] MEDS: INSULIN GLARGINE [LANtus] 3 ML PEN SC (08:00)
[2017-11-29] MEDS: ALLOPURINOL 100 MG TAB PO (08:38)
[2017-11-29] MEDS: MULTIVIT/CA CARB/B CMPLX/FA TAB PO (08:38)
[2017-11-29] MEDS: ASPIRIN 81 MG TAB NGT (08:38)
[2017-11-29] MEDS: FOLIC ACID 1 MG TAB PO (08:38)
[2017-11-29] MEDS: SEVELAMER CARBONATE 0.8 GM PKT PO ×3 (08:39→22:03)
[2017-11-29] MEDS: BRIMONIDINE 0.2%-TIMOLOL 0.5% 5ML OPH RIGHT EYE ×2 (08:39→22:03)
[2017-11-29] MEDS: CEFEPIME 1GM/50 ML (PMX) 50 ML IVPB (09:22)
[2017-11-29 09:49] LABS: ADD MAN DIFF? NO
[2017-11-29 09:51] LABS: ABNORMAL IP MESSAGE 1; BASOPHIL # 0.1 10^3/ul (0.0-0.1); BASOPHILS % 0.6 % (0.0-2.0); EOSINOPHILS % 0.2 % (0.0-7.0); HEMATOCRIT 24.7 % (37.0-47.0); HEMOGLOBIN 8.5 g/dl (12.0-16.0); LYMPHOCYTES # 0.4 10^3/ul (0.8-2.9); LYMPHOCYTES % 1.9 % (15.0-51.0); MEAN CORPUSCULAR HEMOGLOBIN 33.6 pg (29.0-33.0); MEAN CORPUSCULAR HGB CONC 34.4 g/dl (32.0-37.0); MEAN CORPUSCULAR VOLUME 97.6 fl (82.0-101.0); MEAN PLATELET VOLUME 14.4 fl (7.4-10.4); MONOCYTE # 1.5 10^3/ul (0.3-0.9); MONOCYTES % 7.8 % (0.0-11.0); NEUTROPHIL # 17.1 10^3/ul (1.6-7.5); NEUTROPHILS % 87.5 % (39.0-77.0); NUCLEATED RED BLOOD CELLS% 0.2 /100WBC (0.0-0.0); PLATELET COUNT 73 10^3/UL (140-415); RED BLOOD COUNT 2.53 10^6/ul (4.20-5.40); RED CELL DISTRIBUTION WIDTH 14.5 % (11.5-14.5)
[2017-11-29 09:51] LABS: WHITE BLOOD COUNT 19.6 10^3/ul (4.8-10.8)
[2017-11-29 09:53] LABS: POSITIVE DIFF @See below
[2017-11-29 10:10] LABS: CREATINE KINASE 260 IU/L (23-200)
[2017-11-29 10:22] LABS: CK INDEX 1.1; CK-MB 2.75 ng/ml (0.0-2.4)
[2017-11-29 10:23] LABS: TROPONIN-I 0.792 ng/ml (0.00-0.12)
[2017-11-29] MEDS: ATORVASTATIN 40 MG TAB PO (22:05)
[2017-11-29] MEDS: LATANOPROST 0.005% 2.5 ML OPH BOTH EYES (22:06)
[2017-11-30] MEDS: INSULIN ASPART [NOVOLOG] 3 ML PEN SC ×6 (02:00→21:00)
[2017-11-30] MEDS: MIDODRINE 5 MG TAB PO ×4 (06:00→21:50)
[2017-11-30] MEDS: LEVOTHYROXINE 125 MCG TAB PO (07:41)
[2017-11-30] MEDS: INSULIN GLARGINE [LANtus] 3 ML PEN SC (07:45)
[2017-11-30] MEDS: CEFEPIME 1GM/50 ML (PMX) 50 ML IVPB (08:18)
[2017-11-30] MEDS: SEVELAMER CARBONATE 0.8 GM PKT PO ×3 (08:19→21:45)
[2017-11-30] MEDS: MULTIVIT/CA CARB/B CMPLX/FA TAB PO (08:19)
[2017-11-30] MEDS: ALLOPURINOL 100 MG TAB PO (08:19)
[2017-11-30] MEDS: ASPIRIN 81 MG TAB NGT (08:19)
[2017-11-30] MEDS: FOLIC ACID 1 MG TAB PO (08:19)
[2017-11-30] MEDS: BRIMONIDINE 0.2%-TIMOLOL 0.5% 5ML OPH RIGHT EYE ×2 (08:19→21:45)
[2017-11-30 09:41] LABS: ANION GAP 21 (8-16); BLOOD UREA NITROGEN 103 mg/dl (7-20); CARBON DIOXIDE 25 mmol/L (21-31); CHLORIDE 95 mmol/L (97-110); CREATININE 6.82 mg/dl (0.44-1.00); GLUCOSE 132 mg/dl (70-220); POTASSIUM 4.5 mmol/L (3.5-5.1); SODIUM 136 mmol/L (135-144)
[2017-11-30] MEDS: ATORVASTATIN 40 MG TAB PO (21:48)
[2017-11-30] MEDS: LATANOPROST 0.005% 2.5 ML OPH BOTH EYES (21:49)
[2017-12-01] MEDS: INSULIN ASPART [NOVOLOG] 3 ML PEN SC ×6 (01:00→21:00)
[2017-12-01] MEDS: LEVOTHYROXINE 125 MCG TAB PO (05:21)
[2017-12-01] MEDS: MIDODRINE 5 MG TAB PO ×3 (05:23→21:08)
[2017-12-01 08:00] LABS: ADD MAN DIFF? NO
[2017-12-01 08:08] LABS: WHITE BLOOD COUNT 20.5 10^3/ul (4.8-10.8)
[2017-12-01 08:08] LABS: ABNORMAL IP MESSAGE 1; BASOPHIL # 0.1 10^3/ul (0.0-0.1); BASOPHILS % 0.5 % (0.0-2.0); EOSINOPHILS % 0.1 % (0.0-7.0); HEMATOCRIT 22.9 % (37.0-47.0); HEMOGLOBIN 7.9 g/dl (12.0-16.0); LYMPHOCYTES # 0.6 10^3/ul (0.8-2.9); MEAN CORPUSCULAR HEMOGLOBIN 32.9 pg (29.0-33.0); MEAN CORPUSCULAR HGB CONC 34.5 g/dl (32.0-37.0); MEAN CORPUSCULAR VOLUME 95.4 fl (82.0-101.0); MEAN PLATELET VOLUME 14.6 fl (7.4-10.4); MONOCYTE # 1.6 10^3/ul (0.3-0.9); MONOCYTES % 7.7 % (0.0-11.0); NEUTROPHILS % 87.5 % (39.0-77.0); RED CELL DISTRIBUTION WIDTH 14.1 % (11.5-14.5)
[2017-12-01 08:34] LABS: ANION GAP 19 (8-16); BLOOD UREA NITROGEN 59 mg/dl (7-20); CALCIUM 8.3 mg/dl (8.4-10.2); CARBON DIOXIDE 28 mmol/L (21-31); CHLORIDE 98 mmol/L (97-110); CREATININE 5.26 mg/dl (0.44-1.00); GLUCOSE 102 mg/dl (70-220); POTASSIUM 3.8 mmol/L (3.5-5.1); SODIUM 141 mmol/L (135-144)
[2017-12-01 08:42] LABS: PLATELET COUNT 77 10^3/UL (140-415); POSITIVE DIFF @See below
[2017-12-01] MEDS: FOLIC ACID 1 MG TAB PO (08:45)
[2017-12-01] MEDS: SEVELAMER CARBONATE 0.8 GM PKT PO ×3 (08:45→21:07)
[2017-12-01] MEDS: MULTIVIT/CA CARB/B CMPLX/FA TAB PO (08:45)
[2017-12-01] MEDS: ALLOPURINOL 100 MG TAB PO (08:45)
[2017-12-01] MEDS: BRIMONIDINE 0.2%-TIMOLOL 0.5% 5ML OPH RIGHT EYE ×2 (08:45→21:07)
[2017-12-01] MEDS: ASPIRIN 81 MG TAB NGT (08:45)
[2017-12-01] MEDS: CEFEPIME 1GM/50 ML (PMX) 50 ML IVPB (08:45)
[2017-12-01] MEDS: INSULIN GLARGINE [LANtus] 3 ML PEN SC (08:55)
[2017-12-01] MEDS: ATORVASTATIN 40 MG TAB PO (21:07)
[2017-12-01] MEDS: VANCOMYCIN 1 GM 250 ML IVPB (21:10)
[2017-12-01] MEDS: LATANOPROST 0.005% 2.5 ML OPH BOTH EYES (21:10)
[2017-12-02] MEDS: MIDODRINE 5 MG TAB PO ×3 (06:24→20:54)
[2017-12-02] MEDS: LEVOTHYROXINE 125 MCG TAB PO (06:24)
[2017-12-02] MEDS: INSULIN GLARGINE [LANtus] 3 ML PEN SC (07:24)
[2017-12-02] MEDS: INSULIN ASPART [NOVOLOG] 3 ML PEN SC ×4 (07:25→20:52)
[2017-12-02] MEDS: MULTIVIT/CA CARB/B CMPLX/FA TAB PO (07:27)
[2017-12-02] MEDS: ALLOPURINOL 100 MG TAB PO (07:27)
[2017-12-02] MEDS: ASPIRIN 81 MG TAB NGT (07:27)
[2017-12-02] MEDS: BRIMONIDINE 0.2%-TIMOLOL 0.5% 5ML OPH RIGHT EYE ×2 (07:27→20:49)
[2017-12-02] MEDS: SEVELAMER CARBONATE 0.8 GM PKT PO ×3 (07:27→20:49)
[2017-12-02] MEDS: FOLIC ACID 1 MG TAB PO (07:27)
[2017-12-02] MEDS: CEFEPIME 1GM/50 ML (PMX) 50 ML IVPB (07:35)
[2017-12-02 08:48] LABS: ADD MAN DIFF? NO
[2017-12-02 09:02] LABS: WHITE BLOOD COUNT 20.2 10^3/ul (4.8-10.8)
[2017-12-02 09:02] LABS: ABNORMAL IP MESSAGE 1; BASOPHIL # 0.1 10^3/ul (0.0-0.1); BASOPHILS % 0.3 % (0.0-2.0); EOSINOPHILS # 0.1 10^3/ul (0.0-0.5); EOSINOPHILS % 0.3 % (0.0-7.0); HEMATOCRIT 22.1 % (37.0-47.0); HEMOGLOBIN 7.5 g/dl (12.0-16.0); LYMPHOCYTES # 0.6 10^3/ul (0.8-2.9); LYMPHOCYTES % 2.7 % (15.0-51.0); MEAN CORPUSCULAR HEMOGLOBIN 33.2 pg (29.0-33.0); MEAN CORPUSCULAR HGB CONC 33.9 g/dl (32.0-37.0); MEAN CORPUSCULAR VOLUME 97.8 fl (82.0-101.0); MEAN PLATELET VOLUME 14.3 fl (7.4-10.4); MONOCYTE # 1.4 10^3/ul (0.3-0.9); MONOCYTES % 6.9 % (0.0-11.0); NEUTROPHIL # 17.8 10^3/ul (1.6-7.5); NEUTROPHILS % 88.2 % (39.0-77.0); PLATELET COUNT 76 10^3/UL (140-415); RED BLOOD COUNT 2.26 10^6/ul (4.20-5.40); RED CELL DISTRIBUTION WIDTH 14.5 % (11.5-14.5)
[2017-12-02 09:06] LABS: POSITIVE DIFF @See below
[2017-12-02 09:30] LABS: MAGNESIUM 2.1 mg/dl (1.7-2.5)
[2017-12-02 09:30] LABS: PHOSPHORUS 5.5 mg/dl (2.5-4.9)
[2017-12-02 09:42] LABS: ANION GAP 17 (8-16); BLOOD UREA NITROGEN 73 mg/dl (7-20); CALCIUM 8.2 mg/dl (8.4-10.2); CARBON DIOXIDE 28 mmol/L (21-31); CHLORIDE 98 mmol/L (97-110); CREATININE 6.58 mg/dl (0.44-1.00); GLUCOSE 136 mg/dl (70-220); SODIUM 139 mmol/L (135-144)
[2017-12-02 09:43] LABS: TROPONIN-I 0.545 ng/ml (0.00-0.12)
[2017-12-02] MEDS ORDERED: POTASSIUM CHLORIDE 20 MEQ POWDER FOR ORAL SOLN (18:40)
[2017-12-02] MEDS: ATORVASTATIN 40 MG TAB PO (20:48)
[2017-12-02] MEDS: LATANOPROST 0.005% 2.5 ML OPH BOTH EYES (20:56)
[2017-12-02] MEDS: DEXTROSE 5%-0.45% NACL 1,000 ML IV (23:28)
[2017-12-03] MEDS: MIDODRINE 5 MG TAB PO ×3 (05:15→21:52)
[2017-12-03] MEDS: LEVOTHYROXINE 125 MCG TAB PO (05:16)
[2017-12-03] MEDS ORDERED: morphine (1 MG/ML) 10ML SYRINGE IV ×3 (06:30)
[2017-12-03] MEDS ORDERED: OXYCODONE/ACETAMINOPHEN (5/325) TAB PO ×2 (06:30)
[2017-12-03] MEDS ORDERED: DIPHENHYDRAMINE 50 MG INJ IV (06:30)
[2017-12-03] MEDS ORDERED: ATROPINE 1 MG/10 ML SYRINGE IV (06:30)
[2017-12-03] MEDS ORDERED: MEPERIDINE 25 MG INJ IV (06:30)
[2017-12-03] MEDS ORDERED: hydrALAzine 20 MG INJ IV (06:30)
[2017-12-03] MEDS ORDERED: EPHEDrine SULFATE 50 MG/5 ML SYG IV (06:30)
[2017-12-03] MEDS ORDERED: HYDROmorphONE (0.2 MG/ML) 10ML SYG IV ×3 (06:30)
[2017-12-03] MEDS ORDERED: FENTAnyl 50 MCG/ML VIAL IV ×2 (06:30)
[2017-12-03] MEDS ORDERED: LABETALOL HCL 20MG INJ IV (06:30)
[2017-12-03] MEDS ORDERED: ONDANSETRON 4 MG INJ IV (06:30)
[2017-12-03] MEDS ORDERED: MIDAZOLAM 1 MG/ML 2 ML INJ IV (06:30)
[2017-12-03] MEDS: INSULIN ASPART [NOVOLOG] 3 ML PEN SC ×3 (08:00→21:00)
[2017-12-03] MEDS: INSULIN GLARGINE [LANtus] 3 ML PEN SC (08:00)
[2017-12-03] MEDS: CEFEPIME 1GM/50 ML (PMX) 50 ML IVPB (08:17)
[2017-12-03] MEDS: ASPIRIN 81 MG TAB NGT (08:20)
[2017-12-03] MEDS: FOLIC ACID 1 MG TAB PO (08:20)
[2017-12-03] MEDS: MULTIVIT/CA CARB/B CMPLX/FA TAB PO (08:21)
[2017-12-03] MEDS: BRIMONIDINE 0.2%-TIMOLOL 0.5% 5ML OPH RIGHT EYE ×2 (08:21→21:45)
[2017-12-03] MEDS: SEVELAMER CARBONATE 0.8 GM PKT PO ×3 (08:21→21:00)
[2017-12-03] MEDS: ALLOPURINOL 100 MG TAB PO (08:21)
[2017-12-03 08:54] LABS: ADD MAN DIFF? NO
[2017-12-03 08:58] LABS: WHITE BLOOD COUNT 16.9 10^3/ul (4.8-10.8)
[2017-12-03 08:58] LABS: ABNORMAL IP MESSAGE 1; BASOPHIL # 0.1 10^3/ul (0.0-0.1); BASOPHILS % 0.4 % (0.0-2.0); EOSINOPHILS # 0.1 10^3/ul (0.0-0.5); EOSINOPHILS % 0.4 % (0.0-7.0); HEMATOCRIT 24.5 % (37.0-47.0); HEMOGLOBIN 8.2 g/dl (12.0-16.0); LYMPHOCYTES # 0.6 10^3/ul (0.8-2.9); LYMPHOCYTES % 3.7 % (15.0-51.0); MEAN CORPUSCULAR HEMOGLOBIN 32.9 pg (29.0-33.0); MEAN CORPUSCULAR HGB CONC 33.5 g/dl (32.0-37.0); MEAN CORPUSCULAR VOLUME 98.4 fl (82.0-101.0); MEAN PLATELET VOLUME 13.9 fl (7.4-10.4); MONOCYTE # 1.6 10^3/ul (0.3-0.9); MONOCYTES % 9.4 % (0.0-11.0); NEUTROPHIL # 14.3 10^3/ul (1.6-7.5); NEUTROPHILS % 84.6 % (39.0-77.0); PLATELET COUNT 83 10^3/UL (140-415); RED BLOOD COUNT 2.49 10^6/ul (4.20-5.40); RED CELL DISTRIBUTION WIDTH 14.6 % (11.5-14.5)
[2017-12-03 09:00] LABS: POSITIVE DIFF @See below
[2017-12-03 09:27] LABS: ALANINE AMINOTRANSFERASE 53 IU/L (13-69); ALBUMIN/GLOBULIN RATIO 0.88; ALKALINE PHOSPHATASE 179 IU/L (42-121); ANION GAP 17 (8-16); ASPARTATE AMINO TRANSFERASE 35 IU/L (15-46); BILIRUBIN,INDIRECT 0.1 mg/dl (0-1.1); BILIRUBIN,TOTAL 0.1 mg/dl (0.2-1.3); BLOOD UREA NITROGEN 53 mg/dl (7-20); CALCIUM 8.3 mg/dl (8.4-10.2); CARBON DIOXIDE 29 mmol/L (21-31); CHLORIDE 102 mmol/L (97-110); CREATININE 5.82 mg/dl (0.44-1.00); GLUCOSE 154 mg/dl (70-220); POTASSIUM 3.4 mmol/L (3.5-5.1); SODIUM 145 mmol/L (135-144); TOTAL PROTEIN 6.4 g/dl (6.1-8.1)
[2017-12-03] MEDS ORDERED: POTASSIUM CHLORIDE 20 MEQ in DEXTROSE 5% 100 ML IVPB (10:00)
[2017-12-03] MEDS: POTASSIUM CHLORIDE 50 ML IVPB ×2 (10:32→11:00)
[2017-12-03] MEDS ORDERED: NEOSTIGMINE 3 MG/3 ML SYRINGE (12:07)
[2017-12-03] MEDS ORDERED: ROCURONIUM 50 MG INJ (12:07)
[2017-12-03] MEDS ORDERED: FENTAnyl 50 MCG/ML VIAL (12:07)
[2017-12-03] MEDS ORDERED: GLYCOPYRROLATE 0.4 MG INJ (12:07)
[2017-12-03] MEDS ORDERED: LIDOCAINE 2% (SDV) 5 ML INJ (12:07)
[2017-12-03] MEDS ORDERED: MIDAZOLAM 1 MG/ML 2 ML INJ (12:07)
[2017-12-03] MEDS ORDERED: PROPOFOL 20 ML (12:07)
[2017-12-03] MEDS ORDERED: POLYMYXIN/BACITRACIN 1L IRRIG (12:18)
[2017-12-03 13:38] LABS: IMMEDIATE SPIN CROSSMATCH 1 2
[2017-12-03] MEDS: HEPARIN 1000 UNITS/ML 10 ML INJ ×2 (13:45→14:30)
[2017-12-03] MEDS: BUPIVACAINE 0.25% (MPF) 30 ML INJ (13:45)
[2017-12-03] MEDS: LIDOCAINE 1% (MPF) 30 ML INJ (13:45)
[2017-12-03] MEDS: THROMBIN 5000 UNIT VIAL (13:45)
[2017-12-03] MEDS: GELATIN SIZE 100 SPONGE (13:45)
[2017-12-03] MEDS: IOHEXOL 300MG/ML 30 ML BTL (14:00)
[2017-12-03] MEDS: VANCOMYCIN 1 GM INJ (14:00)
[2017-12-03 15:28] LABS: ADD MAN DIFF? NO
[2017-12-03 15:30] LABS: ABNORMAL IP MESSAGE 1; BASOPHILS % 0.3 % (0.0-2.0); EOSINOPHILS % 0.3 % (0.0-7.0); HEMOGLOBIN 9.3 g/dl (12.0-16.0); LYMPHOCYTES # 0.3 10^3/ul (0.8-2.9); LYMPHOCYTES % 2.4 % (15.0-51.0); MEAN CORPUSCULAR HGB CONC 33.2 g/dl (32.0-37.0); MEAN CORPUSCULAR VOLUME 96.2 fl (82.0-101.0); MEAN PLATELET VOLUME 12.7 fl (7.4-10.4); MONOCYTE # 0.4 10^3/ul (0.3-0.9); MONOCYTES % 2.5 % (0.0-11.0); NEUTROPHILS % 92.9 % (39.0-77.0); RED BLOOD COUNT 2.91 10^6/ul (4.20-5.40); RED CELL DISTRIBUTION WIDTH 16.1 % (11.5-14.5)
[2017-12-03 15:39] LABS: PLATELET COUNT 64 10^3/UL (140-415); POSITIVE DIFF @See below
[2017-12-03 15:49] LABS: INR 1.38; PROTIME 17.2 Sec (11.9-14.9); PT RATIO 1.3
[2017-12-03 15:52] LABS: ANION GAP 18 (8-16); BLOOD UREA NITROGEN 56 mg/dl (7-20); CALCIUM 8.3 mg/dl (8.4-10.2); CARBON DIOXIDE 26 mmol/L (21-31); CHLORIDE 104 mmol/L (97-110); CREATINE KINASE 43 IU/L (23-200); CREATININE 6.11 mg/dl (0.44-1.00); GLUCOSE 160 mg/dl (70-220); POTASSIUM 3.7 mmol/L (3.5-5.1); SODIUM 144 mmol/L (135-144)
[2017-12-03] MEDS ORDERED: METOPROLOL 5 MG INJ IV (16:00)
[2017-12-03 16:05] LABS: CK INDEX 2.4; CK-MB 1.04 ng/ml (0.0-2.4)
[2017-12-03 16:21] LABS: TROPONIN-I 0.562 ng/ml (0.00-0.12)
[2017-12-03 19:34] LABS: ADD MAN DIFF? NO
[2017-12-03 19:35] LABS: WHITE BLOOD COUNT 20.5 10^3/ul (4.8-10.8)
[2017-12-03 19:35] LABS: ABNORMAL IP MESSAGE 1; HEMATOCRIT 25.7 % (37.0-47.0); HEMOGLOBIN 8.5 g/dl (12.0-16.0); MEAN CORPUSCULAR HEMOGLOBIN 31.7 pg (29.0-33.0); MEAN CORPUSCULAR HGB CONC 33.1 g/dl (32.0-37.0); MEAN CORPUSCULAR VOLUME 95.9 fl (82.0-101.0); MEAN PLATELET VOLUME 12.7 fl (7.4-10.4); PLATELET COUNT 72 10^3/UL (140-415); RED BLOOD COUNT 2.68 10^6/ul (4.20-5.40); RED CELL DISTRIBUTION WIDTH 16.2 % (11.5-14.5)
[2017-12-03 19:40] LABS: POSITIVE DIFF @See below
[2017-12-03 20:01] LABS: ANION GAP 19 (8-16); BLOOD UREA NITROGEN 59 mg/dl (7-20); CALCIUM 7.8 mg/dl (8.4-10.2); CARBON DIOXIDE 25 mmol/L (21-31); CHLORIDE 104 mmol/L (97-110); GLUCOSE 137 mg/dl (70-220); POTASSIUM 3.8 mmol/L (3.5-5.1); SODIUM 144 mmol/L (135-144)
[2017-12-03 20:34] LABS: BAND NEUTROPHILS #M 1.8 10^3/ul (0.0-0.6); BAND NEUTROPHILS % (M) 9 % (0-4); EOSINOPHILS # 0.6 10^3/ul (0.0-0.5); EOSINOPHILS % (M) 3 % (0.0-7.0); LYMPHOCYTES # 0.4 10^3/ul (0.8-2.9); LYMPHOCYTES #M 0.4 10^3/ul (0.8-2.9); LYMPHOCYTES % (M) 2 % (15-51); METAMYELOCYTES #M 0.4 10^3/ul (0.0-0.0); METAMYELOCYTES %M 2 % (0-0); MONOCYTE # 0.4 10^3/ul (0.3-0.9); MONOCYTE #M 0.4 10^3/ul (0.3-0.9); MONOCYTES % (M) 2 % (0-11); MYELOCYTES #M 0.2 10^3/ul (0.0-0.0); MYELOCYTES % (M) 1 % (0-0); PLATELET ESTIMATE DECREASED; SEGMENTED NEUTROPHILS (M) % 81 % (39-77)
[2017-12-03] MEDS: ATORVASTATIN 40 MG TAB PO (21:00)
[2017-12-03] MEDS: DEXTROSE 5%-0.45% NACL 1,000 ML IV (21:44)
[2017-12-03] MEDS: LATANOPROST 0.005% 2.5 ML OPH BOTH EYES (21:45)
[2017-12-04 05:12] LABS: ADD MAN DIFF? NO
[2017-12-04 05:16] LABS: WHITE BLOOD COUNT 20.3 10^3/ul (4.8-10.8)
[2017-12-04 05:16] LABS: ABNORMAL IP MESSAGE 1; BASOPHIL # 0.1 10^3/ul (0.0-0.1); BASOPHILS % 0.3 % (0.0-2.0); EOSINOPHILS # 0.1 10^3/ul (0.0-0.5); EOSINOPHILS % 0.5 % (0.0-7.0); HEMATOCRIT 22.4 % (37.0-47.0); HEMOGLOBIN 7.4 g/dl (12.0-16.0); LYMPHOCYTES # 0.8 10^3/ul (0.8-2.9); MEAN CORPUSCULAR HEMOGLOBIN 31.5 pg (29.0-33.0); MEAN CORPUSCULAR VOLUME 95.3 fl (82.0-101.0); MEAN PLATELET VOLUME 14.3 fl (7.4-10.4); MONOCYTE # 1.7 10^3/ul (0.3-0.9); MONOCYTES % 8.3 % (0.0-11.0); NEUTROPHIL # 17.4 10^3/ul (1.6-7.5); NEUTROPHILS % 85.8 % (39.0-77.0); RED BLOOD COUNT 2.35 10^6/ul (4.20-5.40); RED CELL DISTRIBUTION WIDTH 16.3 % (11.5-14.5)
[2017-12-04 05:42] LABS: ANION GAP 18 (8-16); BLOOD UREA NITROGEN 64 mg/dl (7-20); CALCIUM 7.8 mg/dl (8.4-10.2); CARBON DIOXIDE 25 mmol/L (21-31); CHLORIDE 105 mmol/L (97-110); GLUCOSE 138 mg/dl (70-220); POTASSIUM 3.9 mmol/L (3.5-5.1); SODIUM 144 mmol/L (135-144)
[2017-12-04] MEDS: LEVOTHYROXINE 125 MCG TAB PO (05:52)
[2017-12-04] MEDS: MIDODRINE 5 MG TAB PO ×3 (05:52→22:00)
[2017-12-04 06:55] LABS: POSITIVE DIFF @See below
[2017-12-04 06:56] LABS: PLATELET COUNT 71 10^3/UL (140-415)
[2017-12-04] MEDS: INSULIN ASPART [NOVOLOG] 3 ML PEN SC ×4 (07:35→20:45)
[2017-12-04] MEDS: INSULIN GLARGINE [LANtus] 3 ML PEN SC (07:58)
[2017-12-04] MEDS: SEVELAMER CARBONATE 0.8 GM PKT PO ×2 (09:00→13:00)
[2017-12-04] MEDS: BRIMONIDINE 0.2%-TIMOLOL 0.5% 5ML OPH RIGHT EYE ×2 (09:44→20:48)
[2017-12-04] MEDS: CEFEPIME 1GM/50 ML (PMX) 50 ML IVPB (09:44)
[2017-12-04] MEDS: FOLIC ACID 1 MG TAB PO (17:52)
[2017-12-04] MEDS: ASPIRIN 81 MG TAB NGT (17:52)
[2017-12-04] MEDS: HYDROCODONE/APAP (5/325) TAB PO (17:52)
[2017-12-04] MEDS: ALLOPURINOL 100 MG TAB PO (17:52)
[2017-12-04] MEDS: MULTIVIT/CA CARB/B CMPLX/FA TAB PO (17:55)
[2017-12-04] MEDS: LATANOPROST 0.005% 2.5 ML OPH BOTH EYES (20:48)
[2017-12-04] MEDS: DEXTROSE 5%-0.45% NACL 1,000 ML IV (22:20)
[2017-12-05] MEDS: ATORVASTATIN 40 MG TAB PO ×2 (01:09→21:37)
[2017-12-05] MEDS: SEVELAMER CARBONATE 0.8 GM PKT PO ×5 (01:10→21:43)
[2017-12-05 05:08] LABS: ADD MAN DIFF? NO
[2017-12-05 05:22] LABS: ABNORMAL IP MESSAGE 1; BASOPHIL # 0.1 10^3/ul (0.0-0.1); BASOPHILS % 0.6 % (0.0-2.0); EOSINOPHILS # 0.2 10^3/ul (0.0-0.5); EOSINOPHILS % 1.2 % (0.0-7.0); HEMATOCRIT 21.7 % (37.0-47.0); HEMOGLOBIN 7.3 g/dl (12.0-16.0); LYMPHOCYTES # 0.8 10^3/ul (0.8-2.9); LYMPHOCYTES % 4.6 % (15.0-51.0); MEAN CORPUSCULAR HEMOGLOBIN 31.3 pg (29.0-33.0); MEAN CORPUSCULAR HGB CONC 33.6 g/dl (32.0-37.0); MEAN CORPUSCULAR VOLUME 93.1 fl (82.0-101.0); MONOCYTE # 1.5 10^3/ul (0.3-0.9); MONOCYTES % 8.3 % (0.0-11.0); NEUTROPHIL # 15.2 10^3/ul (1.6-7.5); NEUTROPHILS % 84.2 % (39.0-77.0); PLATELET COUNT 65 10^3/UL (140-415); RED BLOOD COUNT 2.33 10^6/ul (4.20-5.40); RED CELL DISTRIBUTION WIDTH 15.9 % (11.5-14.5)
[2017-12-05 05:25] LABS: POSITIVE DIFF @See below
[2017-12-05] MEDS: MIDODRINE 5 MG TAB PO ×3 (05:25→21:38)
[2017-12-05 06:05] LABS: ALANINE AMINOTRANSFERASE 52 IU/L (13-69); ALBUMIN 2.9 g/dl (3.3-4.9); ALBUMIN/GLOBULIN RATIO 0.85; ALKALINE PHOSPHATASE 154 IU/L (42-121); ANION GAP 18 (8-16); ASPARTATE AMINO TRANSFERASE 44 IU/L (15-46); BILIRUBIN,INDIRECT 0.1 mg/dl (0-1.1); BILIRUBIN,TOTAL 0.1 mg/dl (0.2-1.3); BLOOD UREA NITROGEN 48 mg/dl (7-20); CALCIUM 7.9 mg/dl (8.4-10.2); CARBON DIOXIDE 28 mmol/L (21-31); CHLORIDE 100 mmol/L (97-110); CREATININE 5.96 mg/dl (0.44-1.00); GLUCOSE 125 mg/dl (70-220); POTASSIUM 3.6 mmol/L (3.5-5.1); SODIUM 142 mmol/L (135-144); TOTAL PROTEIN 6.3 g/dl (6.1-8.1)
[2017-12-05] MEDS: INSULIN ASPART [NOVOLOG] 3 ML PEN SC ×4 (07:35→21:00)
[2017-12-05] MEDS: LEVOTHYROXINE 125 MCG TAB PO (08:09)
[2017-12-05] MEDS: INSULIN GLARGINE [LANtus] 3 ML PEN SC (08:11)
[2017-12-05] MEDS: MULTIVIT/CA CARB/B CMPLX/FA TAB PO ×2 (09:00→09:56)
[2017-12-05] MEDS: BRIMONIDINE 0.2%-TIMOLOL 0.5% 5ML OPH RIGHT EYE ×2 (09:00→21:40)
[2017-12-05] MEDS: ALLOPURINOL 100 MG TAB PO ×2 (09:00→09:56)
[2017-12-05] MEDS: ASPIRIN 81 MG TAB NGT ×2 (09:00→09:56)
[2017-12-05] MEDS: FOLIC ACID 1 MG TAB PO ×2 (09:00→09:56)
[2017-12-05] MEDS: CEFEPIME 1GM/50 ML (PMX) 50 ML IVPB (09:56)
[2017-12-05] MEDS: HYDROCODONE/APAP (5/325) TAB PO (19:25)
[2017-12-05] MEDS: LATANOPROST 0.005% 2.5 ML OPH BOTH EYES (21:41)
[2017-12-05] MEDS: VANCOMYCIN 1 GM 250 ML IVPB (22:11)
[2017-12-05 22:17] LABS: VANCOMYCIN,TROUGH 17.9 ug/ml (10.0-20.0)
[2017-12-06] MEDS: MIDODRINE 5 MG TAB PO ×2 (06:15→13:25)
[2017-12-06] MEDS: LEVOTHYROXINE 125 MCG TAB PO (07:00)
[2017-12-06 07:08] LABS: ANION GAP 19 (8-16); BLOOD UREA NITROGEN 58 mg/dl (7-20); CALCIUM 8.1 mg/dl (8.4-10.2); CARBON DIOXIDE 23 mmol/L (21-31); CHLORIDE 103 mmol/L (97-110); CREATININE 7.15 mg/dl (0.44-1.00); GLUCOSE 51 mg/dl (70-220); POTASSIUM 3.8 mmol/L (3.5-5.1); SODIUM 141 mmol/L (135-144)
[2017-12-06 07:15] LABS: HEMOGLOBIN A1C 6.2 % (0-5.9)
[2017-12-06] MEDS: INSULIN ASPART [NOVOLOG] 3 ML PEN SC ×4 (07:55→20:44)
[2017-12-06] MEDS: SEVELAMER CARBONATE 0.8 GM PKT PO ×3 (08:29→20:27)
[2017-12-06] MEDS: ALLOPURINOL 100 MG TAB PO (08:29)
[2017-12-06] MEDS: FOLIC ACID 1 MG TAB PO (08:29)
[2017-12-06] MEDS: ASPIRIN 81 MG TAB NGT (08:29)
[2017-12-06] MEDS: MULTIVIT/CA CARB/B CMPLX/FA TAB PO (08:29)
[2017-12-06] MEDS: BRIMONIDINE 0.2%-TIMOLOL 0.5% 5ML OPH RIGHT EYE ×2 (08:30→20:27)
[2017-12-06] MEDS: INSULIN GLARGINE [LANtus] 3 ML PEN SC ×2 (08:35→20:44)
[2017-12-06] MEDS: DEXTROSE 5%-0.45% NACL 500 ML IV (15:21)
[2017-12-06] MEDS: FLUOXETINE 10 MG CAP PO (16:08)
[2017-12-06] MEDS ORDERED: MEGESTROL (40 MG/ML) 10ML CUP PO (17:25)
[2017-12-06] MEDS ORDERED: MEGESTROL 40 MG TAB PO (17:25)
[2017-12-06] MEDS: EPOETIN 4000 UNITS/1 ML INJ (ESRD) SC (17:41)
[2017-12-06] MEDS: LATANOPROST 0.005% 2.5 ML OPH BOTH EYES (20:27)
[2017-12-06] MEDS: ATORVASTATIN 40 MG TAB PO (20:27)
[2017-12-07] MEDS: DEXTROSE 5%-0.45% NACL 500 ML IV (07:40)
[2017-12-07] MEDS: INSULIN ASPART [NOVOLOG] 3 ML PEN SC ×4 (07:55→21:00)
[2017-12-07] MEDS: ALLOPURINOL 100 MG TAB PO (08:32)
[2017-12-07] MEDS: ASPIRIN 81 MG TAB NGT (08:32)
[2017-12-07] MEDS: SEVELAMER CARBONATE 0.8 GM PKT PO ×3 (08:33→21:44)
[2017-12-07] MEDS: MEGESTROL (40 MG/ML) 10ML CUP PO (08:33)
[2017-12-07] MEDS: BISACODYL 10 MG SUPP PR (08:33)
[2017-12-07] MEDS: LEVOTHYROXINE 125 MCG TAB PO (08:33)
[2017-12-07] MEDS: BRIMONIDINE 0.2%-TIMOLOL 0.5% 5ML OPH RIGHT EYE ×2 (08:33→21:45)
[2017-12-07] MEDS: MULTIVIT/CA CARB/B CMPLX/FA TAB PO (08:33)
[2017-12-07] MEDS: FLUOXETINE 10 MG CAP PO (08:33)
[2017-12-07] MEDS: FOLIC ACID 1 MG TAB PO (08:33)
[2017-12-07] MEDS ORDERED: VITAMIN A & D 5 GM OINT PACKET TOP (09:28)
[2017-12-07] MEDS: LATANOPROST 0.005% 2.5 ML OPH BOTH EYES (21:43)
[2017-12-07] MEDS: DOCUSATE SODIUM 100 MG CAP PO (21:43)
[2017-12-07] MEDS: ATORVASTATIN 40 MG TAB PO (21:43)
[2017-12-07] MEDS: DOXYCYCLINE 100 MG TAB PO (21:44)
[2017-12-07] MEDS: INSULIN GLARGINE [LANtus] 3 ML PEN SC (21:59)
[2017-12-08 01:33] LABS: ALANINE AMINOTRANSFERASE 70 IU/L (13-69); ALBUMIN 3.3 g/dl (3.3-4.9); ALBUMIN/GLOBULIN RATIO 0.82; ALKALINE PHOSPHATASE 201 IU/L (42-121); ANION GAP 17 (8-16); ASPARTATE AMINO TRANSFERASE 106 IU/L (15-46); BLOOD UREA NITROGEN 59 mg/dl (7-20); CALCIUM 8.5 mg/dl (8.4-10.2); CARBON DIOXIDE 25 mmol/L (21-31); CHLORIDE 100 mmol/L (97-110); CREATININE 7.52 mg/dl (0.44-1.00); GLUCOSE 160 mg/dl (70-220); POTASSIUM 3.8 mmol/L (3.5-5.1); SODIUM 138 mmol/L (135-144); TOTAL PROTEIN 7.3 g/dl (6.1-8.1)
[2017-12-08] MEDS: INSULIN ASPART [NOVOLOG] 3 ML PEN SC ×4 (07:55→21:00)
[2017-12-08] MEDS: POLYETHYLENE GLYCOL 17 GM PACKET PO (08:51)
[2017-12-08] MEDS: DOCUSATE SODIUM 100 MG CAP PO ×2 (08:53→21:46)
[2017-12-08] MEDS: LEVOTHYROXINE 125 MCG TAB PO (08:53)
[2017-12-08] MEDS: ALLOPURINOL 100 MG TAB PO (08:54)
[2017-12-08] MEDS: ASPIRIN 81 MG TAB NGT (08:54)
[2017-12-08] MEDS: FOLIC ACID 1 MG TAB PO (08:54)
[2017-12-08] MEDS: SEVELAMER CARBONATE 0.8 GM PKT PO ×3 (08:54→21:47)
[2017-12-08] MEDS: DOXYCYCLINE 100 MG TAB PO ×2 (08:54→21:47)
[2017-12-08] MEDS: FLUOXETINE 10 MG CAP PO (08:54)
[2017-12-08] MEDS: MULTIVIT/CA CARB/B CMPLX/FA TAB PO (08:54)
[2017-12-08] MEDS: BRIMONIDINE 0.2%-TIMOLOL 0.5% 5ML OPH RIGHT EYE ×2 (08:55→21:48)
[2017-12-08] MEDS: MEGESTROL (40 MG/ML) 10ML CUP PO (08:55)
[2017-12-08] MEDS: ALTEPLASE (CATHFLO) 2 MG INJ CATHETER ×2 (13:30→18:21)
[2017-12-08] MEDS: HEPARIN 1000 UNITS/ML 10 ML INJ CATHETER ×2 (13:30→18:20)
[2017-12-08 15:28] LABS: HEPATITIS B SURFACE ANTIGEN NEGATIVE (NEGATIVE)
[2017-12-08] MEDS: ACETAMINOPHEN 325 MG TAB PO (21:47)
[2017-12-08] MEDS: LATANOPROST 0.005% 2.5 ML OPH BOTH EYES (21:48)
[2017-12-08] MEDS: ATORVASTATIN 40 MG TAB PO (21:50)
[2017-12-08] MEDS: INSULIN GLARGINE [LANtus] 3 ML PEN SC (22:02)
[2017-12-09] MEDS: LEVOTHYROXINE 125 MCG TAB PO (06:27)
[2017-12-09 07:29] LABS: ADD MAN DIFF? NO
[2017-12-09 07:36] LABS: WHITE BLOOD COUNT 12.6 10^3/ul (4.8-10.8)
[2017-12-09 07:36] LABS: ABNORMAL IP MESSAGE 1; BASOPHIL # 0.1 10^3/ul (0.0-0.1); BASOPHILS % 0.5 % (0.0-2.0); EOSINOPHILS # 0.3 10^3/ul (0.0-0.5); EOSINOPHILS % 2.4 % (0.0-7.0); HEMATOCRIT 25.7 % (37.0-47.0); HEMOGLOBIN 8.4 g/dl (12.0-16.0); LYMPHOCYTES % 7.8 % (15.0-51.0); MEAN CORPUSCULAR HGB CONC 32.7 g/dl (32.0-37.0); MEAN CORPUSCULAR VOLUME 94.8 fl (82.0-101.0); MEAN PLATELET VOLUME 13.6 fl (7.4-10.4); MONOCYTE # 0.9 10^3/ul (0.3-0.9); MONOCYTES % 7.1 % (0.0-11.0); NEUTROPHIL # 10.2 10^3/ul (1.6-7.5); NEUTROPHILS % 81.2 % (39.0-77.0); RED BLOOD COUNT 2.71 10^6/ul (4.20-5.40); RED CELL DISTRIBUTION WIDTH 15.9 % (11.5-14.5)
[2017-12-09 07:41] LABS: PLATELET COUNT 92 10^3/UL (140-415); POSITIVE DIFF @See below
[2017-12-09] MEDS: INSULIN ASPART [NOVOLOG] 3 ML PEN SC ×4 (07:55→21:21)
[2017-12-09] MEDS: ALLOPURINOL 100 MG TAB PO (09:16)
[2017-12-09] MEDS: FOLIC ACID 1 MG TAB PO (09:16)
[2017-12-09] MEDS: DOCUSATE SODIUM 100 MG CAP PO ×2 (09:16→21:02)
[2017-12-09] MEDS: DOXYCYCLINE 100 MG TAB PO ×2 (09:16→21:05)
[2017-12-09] MEDS: MULTIVIT/CA CARB/B CMPLX/FA TAB PO (09:16)
[2017-12-09] MEDS: ASPIRIN 81 MG TAB NGT (09:17)
[2017-12-09] MEDS: FLUOXETINE 10 MG CAP PO (09:17)
[2017-12-09] MEDS: SEVELAMER CARBONATE 0.8 GM PKT PO ×3 (09:17→21:04)
[2017-12-09] MEDS: POLYETHYLENE GLYCOL 17 GM PACKET PO (09:17)
[2017-12-09] MEDS: MEGESTROL (40 MG/ML) 10ML CUP PO (09:17)
[2017-12-09] MEDS: BRIMONIDINE 0.2%-TIMOLOL 0.5% 5ML OPH RIGHT EYE ×2 (09:18→21:05)
[2017-12-09] MEDS: EPOETIN 4000 UNITS/1 ML INJ (ESRD) SC (18:23)
[2017-12-09] MEDS: HYDROCODONE/APAP (5/325) TAB PO (18:28)
[2017-12-09] MEDS: LATANOPROST 0.005% 2.5 ML OPH BOTH EYES (21:02)
[2017-12-09] MEDS: ATORVASTATIN 40 MG TAB PO (21:03)
[2017-12-09] MEDS: VANCOMYCIN 750 MG in DEXTROSE 5% 150 ML IVPB (21:12)
[2017-12-09] MEDS: INSULIN GLARGINE [LANtus] 3 ML PEN SC (21:21)
[2017-12-10] MEDS: INSULIN ASPART [NOVOLOG] 3 ML PEN SC ×4 (07:55→20:46)
[2017-12-10] MEDS: FLUOXETINE 10 MG CAP PO (09:15)
[2017-12-10] MEDS: DOCUSATE SODIUM 100 MG CAP PO ×2 (09:15→20:30)
[2017-12-10] MEDS: FOLIC ACID 1 MG TAB PO (09:15)
[2017-12-10] MEDS: DOXYCYCLINE 100 MG TAB PO ×2 (09:15→20:30)
[2017-12-10] MEDS: BRIMONIDINE 0.2%-TIMOLOL 0.5% 5ML OPH RIGHT EYE ×2 (09:15→20:31)
[2017-12-10] MEDS: SEVELAMER CARBONATE 0.8 GM PKT PO ×3 (09:15→20:30)
[2017-12-10] MEDS: ALLOPURINOL 100 MG TAB PO (09:15)
[2017-12-10] MEDS: POLYETHYLENE GLYCOL 17 GM PACKET PO (09:15)
[2017-12-10] MEDS: ASPIRIN 81 MG TAB NGT (09:15)
[2017-12-10] MEDS: LEVOTHYROXINE 125 MCG TAB PO (09:15)
[2017-12-10] MEDS: MULTIVIT/CA CARB/B CMPLX/FA TAB PO (09:15)
[2017-12-10] MEDS: MEGESTROL (40 MG/ML) 10ML CUP PO (09:15)
[2017-12-10] MEDS: HYDROCODONE/APAP (5/325) TAB PO (15:05)
[2017-12-10] MEDS: ACETAMINOPHEN 325 MG TAB PO (18:54)
[2017-12-10] MEDS: ATORVASTATIN 40 MG TAB PO (20:30)
[2017-12-10] MEDS: LATANOPROST 0.005% 2.5 ML OPH BOTH EYES (20:31)
[2017-12-10] MEDS: INSULIN GLARGINE [LANtus] 3 ML PEN SC (20:47)
[2017-12-11] MEDS ORDERED: HEPARIN 1000 UNITS/ML 10 ML INJ (07:07)
[2017-12-11] MEDS ORDERED: LIDOCAINE 1% (MDV) 20 ML INJ (07:07)
[2017-12-11] MEDS ORDERED: FENTAnyl 50 MCG/ML VIAL (07:24)
[2017-12-11] MEDS ORDERED: MIDAZOLAM 1 MG/ML 2 ML INJ (07:25)
[2017-12-11] MEDS: DOCUSATE SODIUM 100 MG CAP PO ×2 (09:03→20:34)
[2017-12-11] MEDS: MULTIVIT/CA CARB/B CMPLX/FA TAB PO (09:04)
[2017-12-11] MEDS: LEVOTHYROXINE 125 MCG TAB PO (09:05)
[2017-12-11] MEDS: ALLOPURINOL 100 MG TAB PO (09:05)
[2017-12-11] MEDS: MEGESTROL (40 MG/ML) 10ML CUP PO (09:07)
[2017-12-11] MEDS: DOXYCYCLINE 100 MG TAB PO ×2 (09:07→20:34)
[2017-12-11] MEDS: FOLIC ACID 1 MG TAB PO (09:07)
[2017-12-11] MEDS: POLYETHYLENE GLYCOL 17 GM PACKET PO (09:07)
[2017-12-11] MEDS: FLUOXETINE 10 MG CAP PO (09:08)
[2017-12-11] MEDS: BRIMONIDINE 0.2%-TIMOLOL 0.5% 5ML OPH RIGHT EYE ×2 (09:08→20:35)
[2017-12-11] MEDS: INSULIN ASPART [NOVOLOG] 3 ML PEN SC ×4 (09:08→20:54)
[2017-12-11] MEDS: ASPIRIN 81 MG TAB NGT (09:08)
[2017-12-11] MEDS: SEVELAMER CARBONATE 0.8 GM PKT PO ×3 (09:08→20:35)
[2017-12-11] MEDS: HYDROCODONE/APAP (5/325) TAB PO (09:29)
[2017-12-11 11:44] LABS: ADD MAN DIFF? NO
[2017-12-11 11:51] LABS: BASOPHIL # 0.1 10^3/ul (0.0-0.1); BASOPHILS % 0.3 % (0.0-2.0); EOSINOPHILS # 0.4 10^3/ul (0.0-0.5); EOSINOPHILS % 2.8 % (0.0-7.0); HEMATOCRIT 24.9 % (37.0-47.0); HEMOGLOBIN 8.1 g/dl (12.0-16.0); LYMPHOCYTES # 0.9 10^3/ul (0.8-2.9); LYMPHOCYTES % 5.7 % (15.0-51.0); MEAN CORPUSCULAR HEMOGLOBIN 31.8 pg (29.0-33.0); MEAN CORPUSCULAR HGB CONC 32.5 g/dl (32.0-37.0); MEAN CORPUSCULAR VOLUME 97.6 fl (82.0-101.0); MEAN PLATELET VOLUME 12.8 fl (7.4-10.4); MONOCYTE # 0.9 10^3/ul (0.3-0.9); MONOCYTES % 6.1 % (0.0-11.0); NEUTROPHIL # 12.6 10^3/ul (1.6-7.5); NEUTROPHILS % 83.9 % (39.0-77.0); PLATELET COUNT 146 10^3/UL (140-415); RED BLOOD COUNT 2.55 10^6/ul (4.20-5.40); RED CELL DISTRIBUTION WIDTH 16.2 % (11.5-14.5)
[2017-12-11 12:50] LABS: ANION GAP 21 (8-16); BLOOD UREA NITROGEN 74 mg/dl (7-20); CALCIUM 7.9 mg/dl (8.4-10.2); CARBON DIOXIDE 22 mmol/L (21-31); CHLORIDE 95 mmol/L (97-110); CREATININE 7.75 mg/dl (0.44-1.00); GLUCOSE 201 mg/dl (70-220); POTASSIUM 4.5 mmol/L (3.5-5.1); SODIUM 133 mmol/L (135-144)
[2017-12-11] MEDS: EPOETIN 4000 UNITS/1 ML INJ (ESRD) SC (17:59)
[2017-12-11] MEDS: LATANOPROST 0.005% 2.5 ML OPH BOTH EYES (20:34)
[2017-12-11] MEDS: ATORVASTATIN 40 MG TAB PO (20:35)
[2017-12-11] MEDS: INSULIN GLARGINE [LANtus] 3 ML PEN SC (20:47)
[2017-12-12] MEDS: LEVOTHYROXINE 125 MCG TAB PO (06:40)
[2017-12-12] MEDS: INSULIN ASPART [NOVOLOG] 3 ML PEN SC ×4 (07:55→22:18)
[2017-12-12] MEDS: SEVELAMER CARBONATE 0.8 GM PKT PO ×3 (09:11→22:00)
[2017-12-12] MEDS: MEGESTROL (40 MG/ML) 10ML CUP PO (09:11)
[2017-12-12] MEDS: POLYETHYLENE GLYCOL 17 GM PACKET PO (09:11)
[2017-12-12] MEDS: MULTIVIT/CA CARB/B CMPLX/FA TAB PO (09:12)
[2017-12-12] MEDS: ALLOPURINOL 100 MG TAB PO (09:12)
[2017-12-12] MEDS: DOXYCYCLINE 100 MG TAB PO ×2 (09:12→21:59)
[2017-12-12] MEDS: ASPIRIN 81 MG TAB NGT (09:12)
[2017-12-12] MEDS: FLUOXETINE 10 MG CAP PO (09:12)
[2017-12-12] MEDS: DOCUSATE SODIUM 100 MG CAP PO ×2 (09:13→22:00)
[2017-12-12] MEDS: BRIMONIDINE 0.2%-TIMOLOL 0.5% 5ML OPH RIGHT EYE ×2 (09:14→22:00)
[2017-12-12 09:25] LABS: CK INDEX 2.8; CREATINE KINASE 29 IU/L (23-200)
[2017-12-12] MEDS: FOLIC ACID 1 MG TAB PO (09:26)
[2017-12-12 09:42] LABS: TROPONIN-I 0.056 ng/ml (0.00-0.12)
[2017-12-12] MEDS: HYDROCODONE/APAP (5/325) TAB PO (10:08)
[2017-12-12] MEDS: ATORVASTATIN 40 MG TAB PO (21:59)
[2017-12-12] MEDS: LATANOPROST 0.005% 2.5 ML OPH BOTH EYES (22:00)
[2017-12-12] MEDS: INSULIN GLARGINE [LANtus] 3 ML PEN SC (22:22)
[2017-12-13 06:22] LABS: ADD MAN DIFF? NO
[2017-12-13] MEDS: LEVOTHYROXINE 125 MCG TAB PO (06:38)
[2017-12-13 06:42] LABS: BASOPHIL # 0.1 10^3/ul (0.0-0.1); BASOPHILS % 0.3 % (0.0-2.0); EOSINOPHILS # 0.5 10^3/ul (0.0-0.5); EOSINOPHILS % 3.6 % (0.0-7.0); HEMATOCRIT 22.2 % (37.0-47.0); HEMOGLOBIN 7.3 g/dl (12.0-16.0); LYMPHOCYTES % 6.8 % (15.0-51.0); MEAN CORPUSCULAR HEMOGLOBIN 31.6 pg (29.0-33.0); MEAN CORPUSCULAR HGB CONC 32.9 g/dl (32.0-37.0); MEAN CORPUSCULAR VOLUME 96.1 fl (82.0-101.0); MEAN PLATELET VOLUME 12.1 fl (7.4-10.4); MONOCYTES % 6.3 % (0.0-11.0); NEUTROPHIL # 12.5 10^3/ul (1.6-7.5); NEUTROPHILS % 81.8 % (39.0-77.0); PLATELET COUNT 174 10^3/UL (140-415); RED BLOOD COUNT 2.31 10^6/ul (4.20-5.40); RED CELL DISTRIBUTION WIDTH 16.2 % (11.5-14.5)
[2017-12-13 06:42] LABS: WHITE BLOOD COUNT 15.2 10^3/ul (4.8-10.8)
[2017-12-13] MEDS: INSULIN ASPART [NOVOLOG] 3 ML PEN SC ×5 (07:55→21:10)
[2017-12-13] MEDS: ALLOPURINOL 100 MG TAB PO (09:01)
[2017-12-13] MEDS: MEGESTROL (40 MG/ML) 10ML CUP PO (09:01)
[2017-12-13] MEDS: FLUOXETINE 10 MG CAP PO (09:01)
[2017-12-13] MEDS: POLYETHYLENE GLYCOL 17 GM PACKET PO (09:01)
[2017-12-13] MEDS: DOCUSATE SODIUM 100 MG CAP PO ×2 (09:01→20:56)
[2017-12-13] MEDS: ASPIRIN 81 MG TAB NGT (09:01)
[2017-12-13] MEDS: FOLIC ACID 1 MG TAB PO (09:01)
[2017-12-13] MEDS: DOXYCYCLINE 100 MG TAB PO ×2 (09:01→20:56)
[2017-12-13] MEDS: SEVELAMER CARBONATE 0.8 GM PKT PO ×3 (09:01→22:49)
[2017-12-13] MEDS: MULTIVIT/CA CARB/B CMPLX/FA TAB PO (09:01)
[2017-12-13] MEDS: BRIMONIDINE 0.2%-TIMOLOL 0.5% 5ML OPH RIGHT EYE ×2 (09:02→20:55)
[2017-12-13] MEDS: EPOETIN 4000 UNITS/1 ML INJ (ESRD) SC (18:21)
[2017-12-13] MEDS: ATORVASTATIN 40 MG TAB PO (20:56)
[2017-12-13] MEDS: LATANOPROST 0.005% 2.5 ML OPH BOTH EYES (20:56)
[2017-12-13] MEDS: INSULIN GLARGINE [LANtus] 3 ML PEN SC (21:09)
[2017-12-13 22:40] LABS: VANCOMYCIN,TROUGH 17.3 ug/ml (10.0-20.0)
[2017-12-13] MEDS: VANCOMYCIN 750 MG in DEXTROSE 5% 150 ML IVPB (23:57)
[2017-12-14] MEDS: LEVOTHYROXINE 125 MCG TAB PO (06:10)
[2017-12-14 06:17] LABS: ADD MAN DIFF? NO
[2017-12-14 06:33] LABS: BASOPHILS % 0.3 % (0.0-2.0); EOSINOPHILS # 0.5 10^3/ul (0.0-0.5); EOSINOPHILS % 3.1 % (0.0-7.0); HEMATOCRIT 21.7 % (37.0-47.0); HEMOGLOBIN 7.1 g/dl (12.0-16.0); LYMPHOCYTES # 1.1 10^3/ul (0.8-2.9); LYMPHOCYTES % 6.9 % (15.0-51.0); MEAN CORPUSCULAR HEMOGLOBIN 31.7 pg (29.0-33.0); MEAN CORPUSCULAR HGB CONC 32.7 g/dl (32.0-37.0); MEAN CORPUSCULAR VOLUME 96.9 fl (82.0-101.0); MEAN PLATELET VOLUME 12.4 fl (7.4-10.4); MONOCYTE # 1.1 10^3/ul (0.3-0.9); MONOCYTES % 7.2 % (0.0-11.0); NEUTROPHIL # 12.5 10^3/ul (1.6-7.5); NEUTROPHILS % 81.4 % (39.0-77.0); PLATELET COUNT 211 10^3/UL (140-415); RED BLOOD COUNT 2.24 10^6/ul (4.20-5.40); RED CELL DISTRIBUTION WIDTH 16.4 % (11.5-14.5)
[2017-12-14 06:33] LABS: WHITE BLOOD COUNT 15.4 10^3/ul (4.8-10.8)
[2017-12-14] MEDS: INSULIN ASPART [NOVOLOG] 3 ML PEN SC ×4 (08:19→21:17)
[2017-12-14] MEDS: MULTIVIT/CA CARB/B CMPLX/FA TAB PO (08:28)
[2017-12-14] MEDS: FOLIC ACID 1 MG TAB PO (08:28)
[2017-12-14] MEDS: DOCUSATE SODIUM 100 MG CAP PO ×2 (08:28→21:05)
[2017-12-14] MEDS: ALLOPURINOL 100 MG TAB PO (08:28)
[2017-12-14] MEDS: MEGESTROL (40 MG/ML) 10ML CUP PO (08:28)
[2017-12-14] MEDS: ASPIRIN 81 MG TAB NGT (08:28)
[2017-12-14] MEDS: DOXYCYCLINE 100 MG TAB PO ×2 (08:28→21:06)
[2017-12-14] MEDS: FLUOXETINE 10 MG CAP PO (08:28)
[2017-12-14] MEDS: POLYETHYLENE GLYCOL 17 GM PACKET PO (08:29)
[2017-12-14] MEDS: SEVELAMER CARBONATE 0.8 GM PKT PO ×3 (08:29→21:06)
[2017-12-14] MEDS: BRIMONIDINE 0.2%-TIMOLOL 0.5% 5ML OPH RIGHT EYE ×2 (08:29→21:07)
[2017-12-14] MEDS: ATORVASTATIN 40 MG TAB PO (21:06)
[2017-12-14] MEDS: INSULIN GLARGINE [LANtus] 3 ML PEN SC (21:17)
[2017-12-14] MEDS: LATANOPROST 0.005% 2.5 ML OPH BOTH EYES (21:19)
[2017-12-15] MEDS: LEVOTHYROXINE 125 MCG TAB PO (05:35)
[2017-12-15 06:18] LABS: ADD MAN DIFF? NO
[2017-12-15 06:45] LABS: ABNORMAL IP MESSAGE 1; BASOPHILS % 0.2 % (0.0-2.0); EOSINOPHILS # 0.4 10^3/ul (0.0-0.5); EOSINOPHILS % 2.5 % (0.0-7.0); HEMATOCRIT 20.1 % (37.0-47.0); LYMPHOCYTES # 1.1 10^3/ul (0.8-2.9); LYMPHOCYTES % 7.5 % (15.0-51.0); MEAN CORPUSCULAR HEMOGLOBIN 32.2 pg (29.0-33.0); MEAN CORPUSCULAR HGB CONC 32.8 g/dl (32.0-37.0); MEAN PLATELET VOLUME 13.2 fl (7.4-10.4); MONOCYTE # 1.1 10^3/ul (0.3-0.9); MONOCYTES % 7.4 % (0.0-11.0); NEUTROPHILS % 81.5 % (39.0-77.0); PLATELET COUNT 215 10^3/UL (140-415); RED BLOOD COUNT 2.05 10^6/ul (4.20-5.40); RED CELL DISTRIBUTION WIDTH 16.8 % (11.5-14.5)
[2017-12-15 06:45] LABS: WHITE BLOOD COUNT 14.8 10^3/ul (4.8-10.8)
[2017-12-15 07:24] LABS: HEMOGLOBIN 6.6 g/dl (12.0-16.0); POSITIVE DIFF @See below
[2017-12-15 08:05] LABS: ALANINE AMINOTRANSFERASE 45 IU/L (13-69); ALBUMIN 3.5 g/dl (3.3-4.9); ALBUMIN/GLOBULIN RATIO 0.87; ALKALINE PHOSPHATASE 151 IU/L (42-121); ANION GAP 19 (8-16); ASPARTATE AMINO TRANSFERASE 39 IU/L (15-46); BLOOD UREA NITROGEN 69 mg/dl (7-20); CALCIUM 8.8 mg/dl (8.4-10.2); CARBON DIOXIDE 22 mmol/L (21-31); CHLORIDE 93 mmol/L (97-110); CREATININE 5.76 mg/dl (0.44-1.00); GLUCOSE 121 mg/dl (70-220); SODIUM 129 mmol/L (135-144); TOTAL PROTEIN 7.5 g/dl (6.1-8.1)
[2017-12-15 08:08] LABS: POTASSIUM 5.2 mmol/L (3.5-5.1)
[2017-12-15] MEDS: INSULIN ASPART [NOVOLOG] 3 ML PEN SC ×4 (08:12→21:34)
[2017-12-15] MEDS: ALBUMIN HUMAN 25% 100 ML IV (09:33)
[2017-12-15] MEDS: MEGESTROL (40 MG/ML) 10ML CUP PO (12:19)
[2017-12-15] MEDS: MULTIVIT/CA CARB/B CMPLX/FA TAB PO (12:19)
[2017-12-15] MEDS: DOXYCYCLINE 100 MG TAB PO ×2 (12:19→21:24)
[2017-12-15] MEDS: ALLOPURINOL 100 MG TAB PO (12:19)
[2017-12-15] MEDS: FLUOXETINE 10 MG CAP PO (12:19)
[2017-12-15] MEDS: FOLIC ACID 1 MG TAB PO (12:19)
[2017-12-15] MEDS: DOCUSATE SODIUM 100 MG CAP PO ×2 (12:19→21:24)
[2017-12-15] MEDS: ASPIRIN 81 MG TAB NGT (12:19)
[2017-12-15] MEDS: SEVELAMER CARBONATE 0.8 GM PKT PO ×3 (12:20→21:24)
[2017-12-15] MEDS: POLYETHYLENE GLYCOL 17 GM PACKET PO (12:20)
[2017-12-15] MEDS: BRIMONIDINE 0.2%-TIMOLOL 0.5% 5ML OPH RIGHT EYE ×2 (12:21→21:25)
[2017-12-15] MEDS: HYDROCODONE/APAP (5/325) TAB PO (15:46)
[2017-12-15 16:14] LABS: IMMEDIATE SPIN CROSSMATCH 1 1
[2017-12-15] MEDS: ACETAMINOPHEN 325 MG TAB PO (16:48)
[2017-12-15] MEDS: ATORVASTATIN 40 MG TAB PO (21:24)
[2017-12-15] MEDS: LATANOPROST 0.005% 2.5 ML OPH BOTH EYES (21:24)
[2017-12-15] MEDS: INSULIN GLARGINE [LANtus] 3 ML PEN SC (21:29)
[2017-12-15] MEDS: ZOLPIDEM 5 MG TAB PO (22:55)
[2017-12-16] MEDS: LEVOTHYROXINE 125 MCG TAB PO (05:28)
[2017-12-16 06:04] LABS: ADD MAN DIFF? NO
[2017-12-16 06:05] LABS: BASOPHILS % 0.3 % (0.0-2.0); EOSINOPHILS # 0.3 10^3/ul (0.0-0.5); EOSINOPHILS % 1.6 % (0.0-7.0); HEMATOCRIT 24.5 % (37.0-47.0); LYMPHOCYTES # 0.9 10^3/ul (0.8-2.9); LYMPHOCYTES % 5.9 % (15.0-51.0); MEAN CORPUSCULAR HEMOGLOBIN 30.5 pg (29.0-33.0); MEAN CORPUSCULAR HGB CONC 32.7 g/dl (32.0-37.0); MEAN CORPUSCULAR VOLUME 93.5 fl (82.0-101.0); MONOCYTE # 1.3 10^3/ul (0.3-0.9); MONOCYTES % 8.1 % (0.0-11.0); NEUTROPHIL # 13.2 10^3/ul (1.6-7.5); NEUTROPHILS % 83.3 % (39.0-77.0); PLATELET COUNT 253 10^3/UL (140-415); RED BLOOD COUNT 2.62 10^6/ul (4.20-5.40); RED CELL DISTRIBUTION WIDTH 18.6 % (11.5-14.5)
[2017-12-16 06:05] LABS: WHITE BLOOD COUNT 15.9 10^3/ul (4.8-10.8)
[2017-12-16] MEDS: INSULIN ASPART [NOVOLOG] 3 ML PEN SC ×5 (08:15→22:12)
[2017-12-16] MEDS: ALLOPURINOL 100 MG TAB PO (09:47)
[2017-12-16] MEDS: DOCUSATE SODIUM 100 MG CAP PO ×2 (09:47→21:11)
[2017-12-16] MEDS: ASPIRIN 81 MG TAB NGT (09:47)
[2017-12-16] MEDS: FOLIC ACID 1 MG TAB PO (09:47)
[2017-12-16] MEDS: MEGESTROL (40 MG/ML) 10ML CUP PO (09:47)
[2017-12-16] MEDS: DOXYCYCLINE 100 MG TAB PO ×2 (09:48→21:12)
[2017-12-16] MEDS: MULTIVIT/CA CARB/B CMPLX/FA TAB PO (09:48)
[2017-12-16] MEDS: FLUOXETINE 10 MG CAP PO (09:48)
[2017-12-16] MEDS: POLYETHYLENE GLYCOL 17 GM PACKET PO (09:48)
[2017-12-16] MEDS: BRIMONIDINE 0.2%-TIMOLOL 0.5% 5ML OPH RIGHT EYE ×2 (09:51→21:12)
[2017-12-16] MEDS: SEVELAMER CARBONATE 0.8 GM PKT PO ×3 (10:17→21:12)
[2017-12-16] MEDS ORDERED: ALBUMIN HUMAN 25% 50 ML IV ×2 (16:30→23:00)
[2017-12-16] MEDS: EPOETIN 4000 UNITS/1 ML INJ (ESRD) SC (18:03)
[2017-12-16] MEDS: LATANOPROST 0.005% 2.5 ML OPH BOTH EYES (21:11)
[2017-12-16] MEDS: ATORVASTATIN 40 MG TAB PO (21:17)
[2017-12-16] MEDS: INSULIN GLARGINE [LANtus] 3 ML PEN SC (21:22)
[2017-12-17 06:19] LABS: ADD MAN DIFF? NO; BASOPHIL # 0.1 10^3/ul (0.0-0.1); BASOPHILS % 0.3 % (0.0-2.0); EOSINOPHILS # 0.3 10^3/ul (0.0-0.5); EOSINOPHILS % 1.7 % (0.0-7.0); HEMATOCRIT 24.7 % (37.0-47.0); HEMOGLOBIN 8.1 g/dl (12.0-16.0); LYMPHOCYTES % 6.9 % (15.0-51.0); MEAN CORPUSCULAR HEMOGLOBIN 30.9 pg (29.0-33.0); MEAN CORPUSCULAR HGB CONC 32.8 g/dl (32.0-37.0); MEAN CORPUSCULAR VOLUME 94.3 fl (82.0-101.0); MEAN PLATELET VOLUME 11.4 fl (7.4-10.4); MONOCYTE # 1.3 10^3/ul (0.3-0.9); MONOCYTES % 9.2 % (0.0-11.0); NEUTROPHIL # 11.8 10^3/ul (1.6-7.5); NEUTROPHILS % 81.1 % (39.0-77.0); PLATELET COUNT 260 10^3/UL (140-415); RED BLOOD COUNT 2.62 10^6/ul (4.20-5.40); RED CELL DISTRIBUTION WIDTH 18.1 % (11.5-14.5)
[2017-12-17 06:19] LABS: WHITE BLOOD COUNT 14.6 10^3/ul (4.8-10.8)
[2017-12-17] MEDS: LEVOTHYROXINE 125 MCG TAB PO (06:41)
[2017-12-17 07:02] LABS: ANION GAP 19 (8-16); BLOOD UREA NITROGEN 75 mg/dl (7-20); CALCIUM 9.1 mg/dl (8.4-10.2); CARBON DIOXIDE 25 mmol/L (21-31); CHLORIDE 94 mmol/L (97-110); CREATININE 5.49 mg/dl (0.44-1.00); GLUCOSE 127 mg/dl (70-220); SODIUM 133 mmol/L (135-144)
[2017-12-17] MEDS: INSULIN ASPART [NOVOLOG] 3 ML PEN SC ×4 (08:15→20:46)
[2017-12-17] MEDS: ALLOPURINOL 100 MG TAB PO (09:51)
[2017-12-17] MEDS: DOXYCYCLINE 100 MG TAB PO ×2 (09:51→20:41)
[2017-12-17] MEDS: FOLIC ACID 1 MG TAB PO (09:51)
[2017-12-17] MEDS: DOCUSATE SODIUM 100 MG CAP PO ×2 (09:51→20:42)
[2017-12-17] MEDS: MULTIVIT/CA CARB/B CMPLX/FA TAB PO (09:51)
[2017-12-17] MEDS: FLUOXETINE 10 MG CAP PO (09:51)
[2017-12-17] MEDS: ASPIRIN 81 MG TAB NGT (09:51)
[2017-12-17] MEDS: MEGESTROL (40 MG/ML) 10ML CUP PO (09:52)
[2017-12-17] MEDS: SEVELAMER CARBONATE 0.8 GM PKT PO ×3 (09:52→20:41)
[2017-12-17] MEDS: POLYETHYLENE GLYCOL 17 GM PACKET PO (09:52)
[2017-12-17] MEDS: BRIMONIDINE 0.2%-TIMOLOL 0.5% 5ML OPH RIGHT EYE ×2 (10:01→20:43)
[2017-12-17] MEDS: ATORVASTATIN 40 MG TAB PO (20:41)
[2017-12-17] MEDS: LATANOPROST 0.005% 2.5 ML OPH BOTH EYES (20:43)
[2017-12-17] MEDS: INSULIN GLARGINE [LANtus] 3 ML PEN SC (20:45)
[2017-12-17] MEDS: ZOLPIDEM 5 MG TAB PO (21:47)
[2017-12-17] MEDS: VANCOMYCIN 500MG/NS (PMX) 100 ML IVPB (21:47)
[2017-12-18] MEDS: LEVOTHYROXINE 125 MCG TAB PO (06:08)
[2017-12-18] MEDS: DOXYCYCLINE 100 MG TAB PO ×2 (07:51→21:20)
[2017-12-18] MEDS: MULTIVIT/CA CARB/B CMPLX/FA TAB PO (07:51)
[2017-12-18] MEDS: SEVELAMER CARBONATE 0.8 GM PKT PO ×3 (07:51→21:21)
[2017-12-18] MEDS: POLYETHYLENE GLYCOL 17 GM PACKET PO (07:51)
[2017-12-18] MEDS: MEGESTROL (40 MG/ML) 10ML CUP PO (07:51)
[2017-12-18] MEDS: ALLOPURINOL 100 MG TAB PO (07:52)
[2017-12-18] MEDS: FOLIC ACID 1 MG TAB PO (07:52)
[2017-12-18] MEDS: DOCUSATE SODIUM 100 MG CAP PO ×2 (07:52→21:20)
[2017-12-18] MEDS: ASPIRIN 81 MG TAB NGT (07:52)
[2017-12-18] MEDS: FLUOXETINE 10 MG CAP PO (07:52)
[2017-12-18] MEDS: BRIMONIDINE 0.2%-TIMOLOL 0.5% 5ML OPH RIGHT EYE ×2 (07:53→21:21)
[2017-12-18] MEDS: INSULIN ASPART [NOVOLOG] 3 ML PEN SC ×4 (07:58→21:24)
[2017-12-18] MEDS: EPOETIN 4000 UNITS/1 ML INJ (ESRD) SC (16:59)
[2017-12-18] MEDS: ATORVASTATIN 40 MG TAB PO (21:20)
[2017-12-18] MEDS: LATANOPROST 0.005% 2.5 ML OPH BOTH EYES (21:21)
[2017-12-18] MEDS: INSULIN GLARGINE [LANtus] 3 ML PEN SC (21:23)
[2017-12-19 05:58] LABS: ADD MAN DIFF? NO
[2017-12-19 06:03] LABS: WHITE BLOOD COUNT 12.1 10^3/ul (4.8-10.8)
[2017-12-19 06:03] LABS: BASOPHIL # 0.1 10^3/ul (0.0-0.1); BASOPHILS % 0.6 % (0.0-2.0); EOSINOPHILS # 0.2 10^3/ul (0.0-0.5); EOSINOPHILS % 1.7 % (0.0-7.0); HEMATOCRIT 23.4 % (37.0-47.0); HEMOGLOBIN 7.6 g/dl (12.0-16.0); LYMPHOCYTES % 7.8 % (15.0-51.0); MEAN CORPUSCULAR HEMOGLOBIN 30.6 pg (29.0-33.0); MEAN CORPUSCULAR HGB CONC 32.5 g/dl (32.0-37.0); MEAN CORPUSCULAR VOLUME 94.4 fl (82.0-101.0); MEAN PLATELET VOLUME 11.1 fl (7.4-10.4); MONOCYTE # 1.2 10^3/ul (0.3-0.9); MONOCYTES % 9.9 % (0.0-11.0); NEUTROPHIL # 9.6 10^3/ul (1.6-7.5); NEUTROPHILS % 79.3 % (39.0-77.0); PLATELET COUNT 260 10^3/UL (140-415); RED BLOOD COUNT 2.48 10^6/ul (4.20-5.40); RED CELL DISTRIBUTION WIDTH 17.2 % (11.5-14.5)
[2017-12-19] MEDS: LEVOTHYROXINE 125 MCG TAB PO (06:18)
[2017-12-19 06:55] LABS: ALANINE AMINOTRANSFERASE 66 IU/L (13-69); ALBUMIN 3.4 g/dl (3.3-4.9); ALBUMIN/GLOBULIN RATIO 0.94; ALKALINE PHOSPHATASE 211 IU/L (42-121); ANION GAP 19 (8-16); ASPARTATE AMINO TRANSFERASE 67 IU/L (15-46); BLOOD UREA NITROGEN 66 mg/dl (7-20); CALCIUM 9.1 mg/dl (8.4-10.2); CARBON DIOXIDE 24 mmol/L (21-31); CHLORIDE 98 mmol/L (97-110); CREATININE 5.01 mg/dl (0.44-1.00); GLUCOSE 181 mg/dl (70-220); POTASSIUM 4.3 mmol/L (3.5-5.1); SODIUM 137 mmol/L (135-144)
[2017-12-19] MEDS: INSULIN ASPART [NOVOLOG] 3 ML PEN SC ×4 (08:37→21:00)
[2017-12-19] MEDS: ASPIRIN 81 MG TAB NGT (08:37)
[2017-12-19] MEDS: DOCUSATE SODIUM 100 MG CAP PO ×2 (08:38→21:00)
[2017-12-19] MEDS: DOXYCYCLINE 100 MG TAB PO ×2 (08:38→21:00)
[2017-12-19] MEDS: MULTIVIT/CA CARB/B CMPLX/FA TAB PO (08:38)
[2017-12-19] MEDS: POLYETHYLENE GLYCOL 17 GM PACKET PO (08:38)
[2017-12-19] MEDS: FLUOXETINE 10 MG CAP PO (08:38)
[2017-12-19] MEDS: SEVELAMER CARBONATE 0.8 GM PKT PO ×3 (08:38→21:00)
[2017-12-19] MEDS: MEGESTROL (40 MG/ML) 10ML CUP PO (08:38)
[2017-12-19] MEDS: FOLIC ACID 1 MG TAB PO (08:38)
[2017-12-19] MEDS: ALLOPURINOL 100 MG TAB PO (08:39)
[2017-12-19] MEDS: BRIMONIDINE 0.2%-TIMOLOL 0.5% 5ML OPH RIGHT EYE ×2 (08:39→21:00)
[2017-12-19] MEDS: LATANOPROST 0.005% 2.5 ML OPH BOTH EYES (21:00)
[2017-12-19] MEDS: INSULIN GLARGINE [LANtus] 3 ML PEN SC (21:00)
[2017-12-19] MEDS: ATORVASTATIN 40 MG TAB PO (21:00)
[2017-12-20] MEDS: HEPARIN 1000 UNITS/ML 10 ML INJ CATHETER (00:18)
[2017-12-20] MEDS: BRIMONIDINE 0.2%-TIMOLOL 0.5% 5ML OPH RIGHT EYE ×3 (02:59→20:41)
[2017-12-20] MEDS: LATANOPROST 0.005% 2.5 ML OPH BOTH EYES ×2 (03:00→20:41)
[2017-12-20] MEDS: SEVELAMER CARBONATE 0.8 GM PKT PO ×4 (03:00→20:39)
[2017-12-20] MEDS: HYDROCODONE/APAP (5/325) TAB PO (03:01)
[2017-12-20] MEDS: ATORVASTATIN 40 MG TAB PO ×2 (03:01→20:39)
[2017-12-20] MEDS: DOXYCYCLINE 100 MG TAB PO ×3 (03:01→20:39)
[2017-12-20] MEDS: DOCUSATE SODIUM 100 MG CAP PO ×3 (03:11→20:39)
[2017-12-20] MEDS: INSULIN GLARGINE [LANtus] 3 ML PEN SC ×2 (03:14→21:00)
[2017-12-20] MEDS: LEVOTHYROXINE 125 MCG TAB PO (06:23)
[2017-12-20] MEDS: INSULIN ASPART [NOVOLOG] 3 ML PEN SC ×4 (08:24→20:59)
[2017-12-20] MEDS: ASPIRIN 81 MG TAB NGT (09:08)
[2017-12-20] MEDS: MEGESTROL (40 MG/ML) 10ML CUP PO (09:11)
[2017-12-20] MEDS: POLYETHYLENE GLYCOL 17 GM PACKET PO (09:11)
[2017-12-20] MEDS: FLUOXETINE 10 MG CAP PO (09:11)
[2017-12-20] MEDS: FOLIC ACID 1 MG TAB PO (09:11)
[2017-12-20] MEDS: MULTIVIT/CA CARB/B CMPLX/FA TAB PO (09:11)
[2017-12-20] MEDS: ALLOPURINOL 100 MG TAB PO (09:12)
[2017-12-20] MEDS: EPOETIN 4000 UNITS/1 ML INJ (ESRD) SC (17:20)
[2017-12-20] MEDS ORDERED: INSULIN DETEMIR [LEVEMIR] 3ML CART SC (21:00)
[2017-12-21] MEDS: LEVOTHYROXINE 125 MCG TAB PO (06:03)
[2017-12-21] MEDS: SEVELAMER CARBONATE 0.8 GM PKT PO ×3 (07:56→21:09)
[2017-12-21] MEDS: INSULIN ASPART [NOVOLOG] 3 ML PEN SC ×4 (07:56→21:14)
[2017-12-21] MEDS: ALLOPURINOL 100 MG TAB PO (07:57)
[2017-12-21] MEDS: FLUOXETINE 10 MG CAP PO (07:57)
[2017-12-21] MEDS: MEGESTROL (40 MG/ML) 10ML CUP PO (07:57)
[2017-12-21] MEDS: POLYETHYLENE GLYCOL 17 GM PACKET PO (07:57)
[2017-12-21] MEDS: DOCUSATE SODIUM 100 MG CAP PO ×2 (07:57→21:08)
[2017-12-21] MEDS: ASPIRIN 81 MG TAB NGT (07:57)
[2017-12-21] MEDS: FOLIC ACID 1 MG TAB PO (07:57)
[2017-12-21] MEDS: MULTIVIT/CA CARB/B CMPLX/FA TAB PO (07:57)
[2017-12-21] MEDS: BRIMONIDINE 0.2%-TIMOLOL 0.5% 5ML OPH RIGHT EYE ×2 (07:58→21:08)
[2017-12-21] MEDS: DOXYCYCLINE 100 MG TAB PO (09:56)
[2017-12-21] MEDS: ZOLPIDEM 5 MG TAB PO (21:08)
[2017-12-21] MEDS: LATANOPROST 0.005% 2.5 ML OPH BOTH EYES (21:08)
[2017-12-21] MEDS: ATORVASTATIN 40 MG TAB PO (21:09)
[2017-12-21] MEDS: INSULIN GLARGINE [LANtus] 3 ML PEN SC (21:14)
[2017-12-21] MEDS: VANCOMYCIN 500MG/NS (PMX) 100 ML IVPB (23:19)
[2017-12-22 05:53] LABS: ADD MAN DIFF? NO
[2017-12-22] MEDS: LEVOTHYROXINE 125 MCG TAB PO (06:00)
[2017-12-22 06:08] LABS: WHITE BLOOD COUNT 11.6 10^3/ul (4.8-10.8)
[2017-12-22 06:08] LABS: BASOPHILS % 0.3 % (0.0-2.0); EOSINOPHILS # 0.3 10^3/ul (0.0-0.5); EOSINOPHILS % 2.2 % (0.0-7.0); HEMATOCRIT 22.1 % (37.0-47.0); HEMOGLOBIN 7.1 g/dl (12.0-16.0); LYMPHOCYTES # 1.1 10^3/ul (0.8-2.9); LYMPHOCYTES % 9.6 % (15.0-51.0); MEAN CORPUSCULAR HEMOGLOBIN 30.7 pg (29.0-33.0); MEAN CORPUSCULAR HGB CONC 32.1 g/dl (32.0-37.0); MEAN CORPUSCULAR VOLUME 95.7 fl (82.0-101.0); MEAN PLATELET VOLUME 10.6 fl (7.4-10.4); MONOCYTE # 1.1 10^3/ul (0.3-0.9); MONOCYTES % 9.4 % (0.0-11.0); NEUTROPHILS % 77.8 % (39.0-77.0); PLATELET COUNT 278 10^3/UL (140-415); RED BLOOD COUNT 2.31 10^6/ul (4.20-5.40); RED CELL DISTRIBUTION WIDTH 17.2 % (11.5-14.5)
[2017-12-22 06:36] LABS: MAGNESIUM 2.5 mg/dl (1.7-2.5)
[2017-12-22 06:36] LABS: PHOSPHORUS 3.5 mg/dl (2.5-4.9)
[2017-12-22 06:44] LABS: ANION GAP 18 (8-16); BLOOD UREA NITROGEN 87 mg/dl (7-20); CALCIUM 9.2 mg/dl (8.4-10.2); CARBON DIOXIDE 24 mmol/L (21-31); CHLORIDE 98 mmol/L (97-110); CREATININE 5.22 mg/dl (0.44-1.00); GLUCOSE 114 mg/dl (70-220); POTASSIUM 4.8 mmol/L (3.5-5.1); SODIUM 135 mmol/L (135-144)
[2017-12-22] MEDS: INSULIN ASPART [NOVOLOG] 3 ML PEN SC ×4 (08:00→21:21)
[2017-12-22] MEDS: MEGESTROL (40 MG/ML) 10ML CUP PO (08:00)
[2017-12-22] MEDS: ALLOPURINOL 100 MG TAB PO (08:00)
[2017-12-22] MEDS: FOLIC ACID 1 MG TAB PO (08:00)
[2017-12-22] MEDS: SEVELAMER CARBONATE 0.8 GM PKT PO ×3 (08:00→21:08)
[2017-12-22] MEDS: FLUOXETINE 10 MG CAP PO (08:00)
[2017-12-22] MEDS: POLYETHYLENE GLYCOL 17 GM PACKET PO (08:00)
[2017-12-22] MEDS: BRIMONIDINE 0.2%-TIMOLOL 0.5% 5ML OPH RIGHT EYE ×2 (08:00→21:10)
[2017-12-22] MEDS: ASPIRIN 81 MG TAB NGT (08:00)
[2017-12-22] MEDS: DOCUSATE SODIUM 100 MG CAP PO ×2 (08:00→21:08)
[2017-12-22] MEDS: MULTIVIT/CA CARB/B CMPLX/FA TAB PO (08:00)
[2017-12-22 15:47] LABS: HAAIG REFLEX REFLEX FILED
[2017-12-22] MEDS ORDERED: LIDOCAINE 1% (MDV) 20 ML INJ (16:27)
[2017-12-22] MEDS ORDERED: HEPARIN 1000 UNITS/NS (A-LINE) 1,000 ML (16:27)
[2017-12-22] MEDS ORDERED: HEPARIN 1000 UNITS/ML 10 ML INJ (16:27)
[2017-12-22 16:40] LABS: HEPATITIS B SURFACE ANTIGEN NEGATIVE (NEGATIVE)
[2017-12-22] MEDS: HYDROCODONE/APAP (5/325) TAB PO (16:55)
[2017-12-22 16:58] LABS: HEPATITIS B CORE ANTIBODY REACTIVE (NEGATIVE)
[2017-12-22] MEDS: ATORVASTATIN 40 MG TAB PO (21:08)
[2017-12-22] MEDS: morphine 2 MG INJ IV (21:08)
[2017-12-22] MEDS: ZOLPIDEM 5 MG TAB PO (21:08)
[2017-12-22] MEDS: LATANOPROST 0.005% 2.5 ML OPH BOTH EYES (21:09)
[2017-12-22] MEDS: INSULIN GLARGINE [LANtus] 3 ML PEN SC (21:20)
[2017-12-23 06:31] LABS: WHITE BLOOD COUNT 10.3 10^3/ul (4.8-10.8)
[2017-12-23 06:31] LABS: ABNORMAL IP MESSAGE 1; MEAN CORPUSCULAR HEMOGLOBIN 30.5 pg (29.0-33.0); MEAN CORPUSCULAR HGB CONC 31.9 g/dl (32.0-37.0); MEAN CORPUSCULAR VOLUME 95.5 fl (82.0-101.0); MEAN PLATELET VOLUME 10.9 fl (7.4-10.4); PLATELET COUNT 257 10^3/UL (140-415); RED CELL DISTRIBUTION WIDTH 17.1 % (11.5-14.5)
[2017-12-23] MEDS: LEVOTHYROXINE 125 MCG TAB PO (06:49)
[2017-12-23 07:02] LABS: POSITIVE DIFF @See below
[2017-12-23 07:03] LABS: ADD MAN DIFF? YES; HEMOGLOBIN 6.7 g/dl (12.0-16.0)
[2017-12-23] MEDS: INSULIN ASPART [NOVOLOG] 3 ML PEN SC ×4 (08:15→22:06)
[2017-12-23] MEDS: DOCUSATE SODIUM 100 MG CAP PO ×2 (08:17→22:02)
[2017-12-23] MEDS: SEVELAMER CARBONATE 0.8 GM PKT PO ×3 (08:17→22:08)
[2017-12-23] MEDS: FOLIC ACID 1 MG TAB PO (08:17)
[2017-12-23] MEDS: MEGESTROL (40 MG/ML) 10ML CUP PO (08:17)
[2017-12-23] MEDS: POLYETHYLENE GLYCOL 17 GM PACKET PO (08:17)
[2017-12-23] MEDS: MULTIVIT/CA CARB/B CMPLX/FA TAB PO (08:17)
[2017-12-23] MEDS: ASPIRIN 81 MG TAB NGT (08:18)
[2017-12-23] MEDS: FLUOXETINE 10 MG CAP PO (08:18)
[2017-12-23] MEDS: ALLOPURINOL 100 MG TAB PO (08:18)
[2017-12-23] MEDS: BRIMONIDINE 0.2%-TIMOLOL 0.5% 5ML OPH RIGHT EYE ×2 (08:19→22:01)
[2017-12-23 09:41] LABS: ANISOCYTOSIS 2+ (0-0); EOSINOPHILS % (M) 3 % (0-7); GIANT THROMBO% (M) 1 % (0-0); HYPOCHROMASIA 1+ (0-0); LYMPHOCYTES #M 0.8 10^3/ul (0.8-2.9); LYMPHOCYTES % (M) 8 % (15-51); METAMYELOCYTES #M 0.2 10^3/ul (0.0-0.0); METAMYELOCYTES %M 2 % (0-0); MONOCYTE #M 0.3 10^3/ul (0.3-0.9); MONOCYTES % (M) 3 % (0-11); PLATELET ESTIMATE NORMAL; POLYCHROMASIA 3+ (0-0); REACTIVE LYMPHOCYTES #M 0.1 10^3/ul (0.0-0.0); REACTIVE LYMPHOCYTES% (M) 1 % (0-0); SEGMENTED NEUTROPHILS (M) % 83 % (39-77)
[2017-12-23] MEDS ORDERED: morphine LIQ (10 MG/5 ML) CUP PO (16:30)
[2017-12-23 17:23] LABS: IMMEDIATE SPIN CROSSMATCH 1 2
[2017-12-23 18:01] LABS: HEPATITIS C VIRAL ANTIBODY NEGATIVE (NEGATIVE)
[2017-12-23] MEDS: EPOETIN 4000 UNITS/1 ML INJ (ESRD) SC (18:34)
[2017-12-23] MEDS: ATORVASTATIN 40 MG TAB PO (22:02)
[2017-12-23] MEDS: LATANOPROST 0.005% 2.5 ML OPH BOTH EYES (22:02)
[2017-12-23] MEDS: ZOLPIDEM 5 MG TAB PO (22:03)
[2017-12-23] MEDS: INSULIN GLARGINE [LANtus] 3 ML PEN SC (22:06)
[2017-12-24] MEDS: ACETAMINOPHEN 325 MG TAB PO (01:35)
[2017-12-24] MEDS: LEVOTHYROXINE 125 MCG TAB PO (06:22)
[2017-12-24 07:02] LABS: ADD MAN DIFF? NO
[2017-12-24 07:05] LABS: BASOPHILS % 0.2 % (0.0-2.0); EOSINOPHILS # 0.2 10^3/ul (0.0-0.5); HEMATOCRIT 28.9 % (37.0-47.0); HEMOGLOBIN 9.4 g/dl (12.0-16.0); LYMPHOCYTES # 0.8 10^3/ul (0.8-2.9); LYMPHOCYTES % 8.8 % (15.0-51.0); MEAN CORPUSCULAR HEMOGLOBIN 29.9 pg (29.0-33.0); MEAN CORPUSCULAR HGB CONC 32.5 g/dl (32.0-37.0); MEAN PLATELET VOLUME 10.5 fl (7.4-10.4); MONOCYTE # 0.9 10^3/ul (0.3-0.9); NEUTROPHILS % 78.1 % (39.0-77.0); PLATELET COUNT 220 10^3/UL (140-415); RED BLOOD COUNT 3.14 10^6/ul (4.20-5.40)
[2017-12-24 07:24] LABS: PHOSPHORUS 3.8 mg/dl (2.5-4.9)
[2017-12-24 07:24] LABS: ANION GAP 16 (8-16); CALCIUM 8.6 mg/dl (8.4-10.2); CARBON DIOXIDE 25 mmol/L (21-31); CHLORIDE 99 mmol/L (97-110); CREATININE 3.79 mg/dl (0.44-1.00); GLUCOSE 230 mg/dl (70-220); MAGNESIUM 2.4 mg/dl (1.7-2.5); POTASSIUM 4.4 mmol/L (3.5-5.1); SODIUM 136 mmol/L (135-144)
[2017-12-24 08:00] LABS: BLOOD UREA NITROGEN 63 mg/dl (7-20)
[2017-12-24] MEDS: INSULIN ASPART [NOVOLOG] 3 ML PEN SC ×5 (08:33→21:00)
[2017-12-24] MEDS: FLUOXETINE 10 MG CAP PO (08:34)
[2017-12-24] MEDS: MEGESTROL (40 MG/ML) 10ML CUP PO (08:34)
[2017-12-24] MEDS: FOLIC ACID 1 MG TAB PO (08:34)
[2017-12-24] MEDS: DOCUSATE SODIUM 100 MG CAP PO ×2 (08:34→21:37)
[2017-12-24] MEDS: ASPIRIN 81 MG TAB NGT (08:36)
[2017-12-24] MEDS: BRIMONIDINE 0.2%-TIMOLOL 0.5% 5ML OPH RIGHT EYE ×2 (08:36→21:38)
[2017-12-24] MEDS: MULTIVIT/CA CARB/B CMPLX/FA TAB PO (08:36)
[2017-12-24] MEDS: SEVELAMER CARBONATE 0.8 GM PKT PO ×3 (08:36→21:38)
[2017-12-24] MEDS: POLYETHYLENE GLYCOL 17 GM PACKET PO (08:36)
[2017-12-24] MEDS: ALLOPURINOL 100 MG TAB PO (08:36)
[2017-12-24] MEDS: LATANOPROST 0.005% 2.5 ML OPH BOTH EYES (21:37)
[2017-12-24] MEDS: ATORVASTATIN 40 MG TAB PO (21:38)
[2017-12-24] MEDS: INSULIN GLARGINE [LANtus] 3 ML PEN SC (21:41)
[2017-12-25] MEDS: LEVOTHYROXINE 125 MCG TAB PO (07:00)
[2017-12-25] MEDS ORDERED: SODIUM CHLORIDE 0.9% 1L BAG IV (08:00)
[2017-12-25] MEDS ORDERED: ALBUMIN HUMAN 25% 50 ML IV (08:00)
[2017-12-25] MEDS: INSULIN ASPART [NOVOLOG] 3 ML PEN SC ×7 (08:10→21:29)
[2017-12-25] MEDS: FOLIC ACID 1 MG TAB PO (08:59)
[2017-12-25] MEDS: ASPIRIN 81 MG TAB NGT (08:59)
[2017-12-25] MEDS: MULTIVIT/CA CARB/B CMPLX/FA TAB PO (08:59)
[2017-12-25] MEDS: ALLOPURINOL 100 MG TAB PO (08:59)
[2017-12-25] MEDS: FLUOXETINE 10 MG CAP PO (08:59)
[2017-12-25] MEDS: DOCUSATE SODIUM 100 MG CAP PO ×2 (08:59→21:21)
[2017-12-25] MEDS: AMLODIPINE 5 MG TAB PO (09:00)
[2017-12-25] MEDS: MEGESTROL (40 MG/ML) 10ML CUP PO (09:00)
[2017-12-25] MEDS: SEVELAMER CARBONATE 0.8 GM PKT PO ×3 (09:00→21:21)
[2017-12-25] MEDS: BRIMONIDINE 0.2%-TIMOLOL 0.5% 5ML OPH RIGHT EYE ×2 (09:00→21:23)
[2017-12-25] MEDS: POLYETHYLENE GLYCOL 17 GM PACKET PO (09:00)
[2017-12-25] MEDS: EPOETIN 4000 UNITS/1 ML INJ (ESRD) SC (17:46)
[2017-12-25] MEDS: ATORVASTATIN 40 MG TAB PO (21:21)
[2017-12-25] MEDS: LATANOPROST 0.005% 2.5 ML OPH BOTH EYES (21:22)
[2017-12-25] MEDS: INSULIN GLARGINE [LANtus] 3 ML PEN SC (21:28)
[2017-12-25] MEDS: ZOLPIDEM 5 MG TAB PO (21:29)
[2017-12-25 21:44] LABS: VANCOMYCIN,TROUGH 8.5 ug/ml (10.0-20.0)
[2017-12-25] MEDS: VANCOMYCIN 750 MG in DEXTROSE 5% 150 ML IVPB (22:28)
[2017-12-26] MEDS: LEVOTHYROXINE 125 MCG TAB PO (06:45)
[2017-12-26] MEDS: INSULIN ASPART [NOVOLOG] 3 ML PEN SC ×7 (07:49→21:00)
[2017-12-26] MEDS: FLUOXETINE 10 MG CAP PO (08:53)
[2017-12-26] MEDS: MULTIVIT/CA CARB/B CMPLX/FA TAB PO (08:53)
[2017-12-26] MEDS: DOCUSATE SODIUM 100 MG CAP PO ×2 (08:53→21:00)
[2017-12-26] MEDS: ALLOPURINOL 100 MG TAB PO (08:53)
[2017-12-26] MEDS: ASPIRIN 81 MG TAB NGT (08:54)
[2017-12-26] MEDS: POLYETHYLENE GLYCOL 17 GM PACKET PO (08:54)
[2017-12-26] MEDS: AMLODIPINE 5 MG TAB PO (08:54)
[2017-12-26] MEDS: FOLIC ACID 1 MG TAB PO (08:54)
[2017-12-26] MEDS: BRIMONIDINE 0.2%-TIMOLOL 0.5% 5ML OPH RIGHT EYE ×2 (08:54→21:10)
[2017-12-26] MEDS: SEVELAMER CARBONATE 0.8 GM PKT PO ×3 (08:54→21:10)
[2017-12-26] MEDS: MEGESTROL (40 MG/ML) 10ML CUP PO (08:54)
[2017-12-26] MEDS: LATANOPROST 0.005% 2.5 ML OPH BOTH EYES (21:09)
[2017-12-26] MEDS: ATORVASTATIN 40 MG TAB PO (21:09)
[2017-12-26] MEDS: INSULIN GLARGINE [LANtus] 3 ML PEN SC (21:13)
[2017-12-26] MEDS: ZOLPIDEM 5 MG TAB PO (21:24)
[2017-12-27] MEDS: DEXTROSE 5%-0.45% NACL 1,000 ML IV ×2 (01:36→21:06)
[2017-12-27 06:23] LABS: ADD MAN DIFF? NO
[2017-12-27 06:34] LABS: WHITE BLOOD COUNT 10.8 10^3/ul (4.8-10.8)
[2017-12-27 06:34] LABS: BASOPHILS % 0.3 % (0.0-2.0); EOSINOPHILS # 0.3 10^3/ul (0.0-0.5); EOSINOPHILS % 2.9 % (0.0-7.0); HEMATOCRIT 28.5 % (37.0-47.0); HEMOGLOBIN 9.3 g/dl (12.0-16.0); LYMPHOCYTES # 1.1 10^3/ul (0.8-2.9); MEAN CORPUSCULAR HEMOGLOBIN 30.2 pg (29.0-33.0); MEAN CORPUSCULAR HGB CONC 32.6 g/dl (32.0-37.0); MEAN CORPUSCULAR VOLUME 92.5 fl (82.0-101.0); MEAN PLATELET VOLUME 10.2 fl (7.4-10.4); MONOCYTE # 1.1 10^3/ul (0.3-0.9); MONOCYTES % 10.6 % (0.0-11.0); NEUTROPHIL # 8.1 10^3/ul (1.6-7.5); NEUTROPHILS % 75.3 % (39.0-77.0); PLATELET COUNT 213 10^3/UL (140-415); RED BLOOD COUNT 3.08 10^6/ul (4.20-5.40); RED CELL DISTRIBUTION WIDTH 16.9 % (11.5-14.5)
[2017-12-27] MEDS: LEVOTHYROXINE 125 MCG TAB PO (06:45)
[2017-12-27 06:50] LABS: MAGNESIUM 2.7 mg/dl (1.7-2.5)
[2017-12-27 07:04] LABS: ANION GAP 16 (8-16); BLOOD UREA NITROGEN 54 mg/dl (7-20); CALCIUM 8.7 mg/dl (8.4-10.2); CARBON DIOXIDE 25 mmol/L (21-31); CHLORIDE 99 mmol/L (97-110); CREATININE 2.94 mg/dl (0.44-1.00); GLUCOSE 163 mg/dl (70-220); POTASSIUM 4.1 mmol/L (3.5-5.1); SODIUM 136 mmol/L (135-144)
[2017-12-27] MEDS: INSULIN ASPART [NOVOLOG] 3 ML PEN SC ×7 (08:15→21:05)
[2017-12-27] MEDS: SEVELAMER CARBONATE 0.8 GM PKT PO ×3 (08:28→21:01)
[2017-12-27] MEDS: ALLOPURINOL 100 MG TAB PO (08:28)
[2017-12-27] MEDS: BRIMONIDINE 0.2%-TIMOLOL 0.5% 5ML OPH RIGHT EYE ×2 (08:28→21:02)
[2017-12-27] MEDS: MULTIVIT/CA CARB/B CMPLX/FA TAB PO (08:28)
[2017-12-27] MEDS: FOLIC ACID 1 MG TAB PO (08:29)
[2017-12-27] MEDS: DOCUSATE SODIUM 100 MG CAP PO ×2 (08:29→21:00)
[2017-12-27] MEDS: POLYETHYLENE GLYCOL 17 GM PACKET PO (08:29)
[2017-12-27] MEDS: FLUOXETINE 10 MG CAP PO (08:29)
[2017-12-27] MEDS: MEGESTROL (40 MG/ML) 10ML CUP PO (08:29)
[2017-12-27] MEDS: ASPIRIN 81 MG TAB NGT (08:30)
[2017-12-27] MEDS: AMLODIPINE 5 MG TAB PO (09:00)
[2017-12-27] MEDS: BUPIVACAINE 0.25% (MPF) 30 ML INJ (14:54)
[2017-12-27] MEDS: LIDOCAINE 1% (MPF) 30 ML INJ (14:54)
[2017-12-27] MEDS: HEPARIN 1000 UNITS/ML 10 ML INJ (14:54)
[2017-12-27] MEDS: IOHEXOL 300MG/ML 30 ML BTL (14:54)
[2017-12-27] MEDS: GENTAMICIN 80 MG INJ (15:44)
[2017-12-27] MEDS: EPOETIN 4000 UNITS/1 ML INJ (ESRD) SC (16:59)
[2017-12-27] MEDS: ATORVASTATIN 40 MG TAB PO (21:01)
[2017-12-27] MEDS: ZOLPIDEM 5 MG TAB PO (21:02)
[2017-12-27] MEDS: LATANOPROST 0.005% 2.5 ML OPH BOTH EYES (21:03)
[2017-12-27] MEDS: INSULIN GLARGINE [LANtus] 3 ML PEN SC (21:06)
[2017-12-28] MEDS: LEVOTHYROXINE 125 MCG TAB PO (06:36)
[2017-12-28] MEDS: INSULIN ASPART [NOVOLOG] 3 ML PEN SC ×7 (08:15→21:00)
[2017-12-28] MEDS: POLYETHYLENE GLYCOL 17 GM PACKET PO (08:27)
[2017-12-28] MEDS: MULTIVIT/CA CARB/B CMPLX/FA TAB PO (08:28)
[2017-12-28] MEDS: FOLIC ACID 1 MG TAB PO (08:28)
[2017-12-28] MEDS: DOCUSATE SODIUM 100 MG CAP PO ×2 (08:28→22:00)
[2017-12-28] MEDS: FLUOXETINE 10 MG CAP PO (08:28)
[2017-12-28] MEDS: MEGESTROL (40 MG/ML) 10ML CUP PO (08:28)
[2017-12-28] MEDS: ALLOPURINOL 100 MG TAB PO (08:28)
[2017-12-28] MEDS: ASPIRIN 81 MG TAB NGT (08:28)
[2017-12-28] MEDS: SEVELAMER CARBONATE 0.8 GM PKT PO ×3 (08:28→22:00)
[2017-12-28] MEDS: BRIMONIDINE 0.2%-TIMOLOL 0.5% 5ML OPH RIGHT EYE ×2 (08:42→22:00)
[2017-12-28] MEDS: AMLODIPINE 5 MG TAB PO (09:00)
[2017-12-28] MEDS ORDERED: ALBUMIN HUMAN 25% 100 ML IV (16:30)
[2017-12-28 20:59] LABS: ADD MAN DIFF? NO
[2017-12-28 21:00] LABS: BASOPHILS % 0.3 % (0.0-2.0); EOSINOPHILS # 0.4 10^3/ul (0.0-0.5); EOSINOPHILS % 3.9 % (0.0-7.0); HEMATOCRIT 29.6 % (37.0-47.0); HEMOGLOBIN 9.6 g/dl (12.0-16.0); LYMPHOCYTES % 9.2 % (15.0-51.0); MEAN CORPUSCULAR HEMOGLOBIN 30.3 pg (29.0-33.0); MEAN CORPUSCULAR HGB CONC 32.4 g/dl (32.0-37.0); MEAN CORPUSCULAR VOLUME 93.4 fl (82.0-101.0); MEAN PLATELET VOLUME 9.7 fl (7.4-10.4); MONOCYTES % 9.2 % (0.0-11.0); NEUTROPHIL # 8.2 10^3/ul (1.6-7.5); NEUTROPHILS % 76.6 % (39.0-77.0); PLATELET COUNT 222 10^3/UL (140-415); RED BLOOD COUNT 3.17 10^6/ul (4.20-5.40)
[2017-12-28 21:00] LABS: WHITE BLOOD COUNT 10.7 10^3/ul (4.8-10.8)
[2017-12-28] MEDS: INSULIN GLARGINE [LANtus] 3 ML PEN SC (21:00)
[2017-12-28 21:20] LABS: ANION GAP 16 (8-16); BLOOD UREA NITROGEN 68 mg/dl (7-20); CALCIUM 9.1 mg/dl (8.4-10.2); CARBON DIOXIDE 27 mmol/L (21-31); CHLORIDE 96 mmol/L (97-110); GLUCOSE 173 mg/dl (70-220); POTASSIUM 4.1 mmol/L (3.5-5.1); SODIUM 135 mmol/L (135-144)
[2017-12-28] MEDS: LATANOPROST 0.005% 2.5 ML OPH BOTH EYES (22:00)
[2017-12-28] MEDS: ATORVASTATIN 40 MG TAB PO (22:00)
[2017-12-29] MEDS: HEPARIN 1000 UNITS/ML 10 ML INJ CATHETER (00:59)
[2017-12-29] MEDS: LEVOTHYROXINE 125 MCG TAB PO ×2 (06:09→09:18)
[2017-12-29] MEDS: INSULIN ASPART [NOVOLOG] 3 ML PEN SC ×7 (08:00→21:25)
[2017-12-29 08:13] LABS: PARTIAL THROMBOPLASTIN TIME 37.7 Sec (25.0-35.0)
[2017-12-29] MEDS: BRIMONIDINE 0.2%-TIMOLOL 0.5% 5ML OPH RIGHT EYE ×2 (09:00→22:41)
[2017-12-29] MEDS: ASPIRIN 81 MG TAB NGT (09:00)
[2017-12-29] MEDS: MULTIVIT/CA CARB/B CMPLX/FA TAB PO (09:18)
[2017-12-29] MEDS: DOCUSATE SODIUM 100 MG CAP PO ×2 (09:18→21:21)
[2017-12-29] MEDS: POLYETHYLENE GLYCOL 17 GM PACKET PO (09:18)
[2017-12-29] MEDS: MEGESTROL (40 MG/ML) 10ML CUP PO (09:18)
[2017-12-29] MEDS: SEVELAMER CARBONATE 0.8 GM PKT PO ×3 (09:18→21:22)
[2017-12-29] MEDS: AMLODIPINE 5 MG TAB PO ×2 (09:19→21:22)
[2017-12-29] MEDS: ALLOPURINOL 100 MG TAB PO (09:20)
[2017-12-29] MEDS: FLUOXETINE 10 MG CAP PO (09:22)
[2017-12-29] MEDS: FOLIC ACID 1 MG TAB PO (09:23)
[2017-12-29] MEDS: ATORVASTATIN 40 MG TAB PO (21:21)
[2017-12-29] MEDS: LATANOPROST 0.005% 2.5 ML OPH BOTH EYES (22:40)
[2017-12-29] MEDS: VANCOMYCIN 750 MG in DEXTROSE 5% 150 ML IVPB (22:41)
[2017-12-29] MEDS: INSULIN GLARGINE [LANtus] 3 ML PEN SC (22:42)
[2017-12-30] MEDS: MEGESTROL (40 MG/ML) 10ML CUP PO (09:00)
[2017-12-30] MEDS: INSULIN ASPART [NOVOLOG] 3 ML PEN SC ×6 (09:03→17:10)
[2017-12-30] MEDS: SEVELAMER CARBONATE 0.8 GM PKT PO ×2 (09:04→12:27)
[2017-12-30] MEDS: POLYETHYLENE GLYCOL 17 GM PACKET PO (09:05)
[2017-12-30] MEDS: FLUOXETINE 10 MG CAP PO (09:05)
[2017-12-30] MEDS: FOLIC ACID 1 MG TAB PO (09:05)
[2017-12-30] MEDS: DOCUSATE SODIUM 100 MG CAP PO (09:05)
[2017-12-30] MEDS: MULTIVIT/CA CARB/B CMPLX/FA TAB PO (09:05)
[2017-12-30] MEDS: ALLOPURINOL 100 MG TAB PO (09:05)
[2017-12-30] MEDS: BRIMONIDINE 0.2%-TIMOLOL 0.5% 5ML OPH RIGHT EYE (09:05)
[2017-12-30] MEDS: ASPIRIN 81 MG TAB NGT (09:05)
[2017-12-30] MEDS: AMLODIPINE 5 MG TAB PO (09:06)
[2017-12-30 09:10] LABS: ADD MAN DIFF? NO
[2017-12-30 09:33] LABS: ANION GAP 14 (8-16); BLOOD UREA NITROGEN 51 mg/dl (7-20); CARBON DIOXIDE 26 mmol/L (21-31); CHLORIDE 99 mmol/L (97-110); CREATININE 3.11 mg/dl (0.44-1.00); GLUCOSE 150 mg/dl (70-220); POTASSIUM 4.1 mmol/L (3.5-5.1); SODIUM 135 mmol/L (135-144)
[2017-12-30 10:07] LABS: BASOPHILS % 0.4 % (0.0-2.0); EOSINOPHILS # 0.5 10^3/ul (0.0-0.5); EOSINOPHILS % 4.4 % (0.0-7.0); HEMATOCRIT 26.9 % (37.0-47.0); HEMOGLOBIN 8.5 g/dl (12.0-16.0); LYMPHOCYTES # 1.3 10^3/ul (0.8-2.9); LYMPHOCYTES % 11.9 % (15.0-51.0); MEAN CORPUSCULAR HEMOGLOBIN 29.1 pg (29.0-33.0); MEAN CORPUSCULAR HGB CONC 31.6 g/dl (32.0-37.0); MEAN CORPUSCULAR VOLUME 92.1 fl (82.0-101.0); MEAN PLATELET VOLUME 10.2 fl (7.4-10.4); MONOCYTE # 1.1 10^3/ul (0.3-0.9); NEUTROPHILS % 72.5 % (39.0-77.0); PLATELET COUNT 212 10^3/UL (140-415); RED BLOOD COUNT 2.92 10^6/ul (4.20-5.40); RED CELL DISTRIBUTION WIDTH 16.8 % (11.5-14.5)
[2017-12-30] MEDS ORDERED: ALBUMIN HUMAN 25% 50 ML IV (14:00)
[2017-12-30] MEDS ORDERED: SODIUM CHLORIDE 0.9% 1L BAG IV (14:00)
[2017-12-30] MEDS: EPOETIN 4000 UNITS/1 ML INJ (ESRD) SC (17:08)
[2017-12-30] MEDS: HEPARIN 1000 UNITS/ML 10 ML INJ CATHETER (21:34)
[2017-12-31] MEDS: LATANOPROST 0.005% 2.5 ML OPH BOTH EYES ×2 (00:55→21:00)
[2017-12-31] MEDS: DOCUSATE SODIUM 100 MG CAP PO ×3 (00:55→21:00)
[2017-12-31] MEDS: BRIMONIDINE 0.2%-TIMOLOL 0.5% 5ML OPH RIGHT EYE ×3 (00:55→21:00)
[2017-12-31] MEDS: ATORVASTATIN 40 MG TAB PO ×2 (00:55→21:00)
[2017-12-31] MEDS: AMLODIPINE 5 MG TAB PO ×3 (00:59→21:00)
[2017-12-31] MEDS: SEVELAMER CARBONATE 0.8 GM PKT PO ×4 (01:08→21:00)
[2017-12-31] MEDS: INSULIN ASPART [NOVOLOG] 3 ML PEN SC ×8 (01:11→21:00)
[2017-12-31] MEDS: INSULIN GLARGINE [LANtus] 3 ML PEN SC ×2 (01:11→21:00)
[2017-12-31] MEDS: LEVOTHYROXINE 125 MCG TAB PO (06:29)
[2017-12-31] MEDS: POLYETHYLENE GLYCOL 17 GM PACKET PO (08:37)
[2017-12-31] MEDS: FOLIC ACID 1 MG TAB PO (08:37)
[2017-12-31] MEDS: MULTIVIT/CA CARB/B CMPLX/FA TAB PO (08:37)
[2017-12-31] MEDS: FLUOXETINE 10 MG CAP PO (08:38)
[2017-12-31] MEDS: ALLOPURINOL 100 MG TAB PO (08:38)
[2017-12-31] MEDS: ASPIRIN 81 MG TAB NGT (08:38)
[2017-12-31] MEDS: MEGESTROL (40 MG/ML) 10ML CUP PO (08:46)
[2018-01-01] MEDS: LEVOTHYROXINE 125 MCG TAB PO (06:33)
[2018-01-01] MEDS: ALLOPURINOL 100 MG TAB PO (08:18)
[2018-01-01] MEDS: MULTIVIT/CA CARB/B CMPLX/FA TAB PO (08:18)
[2018-01-01] MEDS: ASPIRIN 81 MG TAB NGT (08:18)
[2018-01-01] MEDS: FOLIC ACID 1 MG TAB PO (08:18)
[2018-01-01] MEDS: AMLODIPINE 5 MG TAB PO ×2 (08:18→21:49)
[2018-01-01] MEDS: BRIMONIDINE 0.2%-TIMOLOL 0.5% 5ML OPH RIGHT EYE ×2 (08:18→21:48)
[2018-01-01] MEDS: DOCUSATE SODIUM 100 MG CAP PO ×2 (08:19→21:49)
[2018-01-01] MEDS: FLUOXETINE 10 MG CAP PO (08:19)
[2018-01-01] MEDS: POLYETHYLENE GLYCOL 17 GM PACKET PO (08:19)
[2018-01-01] MEDS: SEVELAMER CARBONATE 0.8 GM PKT PO ×3 (08:19→21:48)
[2018-01-01] MEDS: INSULIN ASPART [NOVOLOG] 3 ML PEN SC ×7 (08:21→21:52)
[2018-01-01] MEDS: MEGESTROL (40 MG/ML) 10ML CUP PO (08:25)
[2018-01-01 09:40] LABS: ADD MAN DIFF? NO
[2018-01-01 09:44] LABS: BASOPHILS % 0.4 % (0.0-2.0); EOSINOPHILS # 0.4 10^3/ul (0.0-0.5); EOSINOPHILS % 4.1 % (0.0-7.0); HEMATOCRIT 28.9 % (37.0-47.0); HEMOGLOBIN 9.1 g/dl (12.0-16.0); LYMPHOCYTES # 0.9 10^3/ul (0.8-2.9); LYMPHOCYTES % 9.9 % (15.0-51.0); MEAN CORPUSCULAR HGB CONC 31.5 g/dl (32.0-37.0); MEAN PLATELET VOLUME 9.9 fl (7.4-10.4); MONOCYTE # 0.9 10^3/ul (0.3-0.9); MONOCYTES % 9.6 % (0.0-11.0); NEUTROPHIL # 6.8 10^3/ul (1.6-7.5); NEUTROPHILS % 75.6 % (39.0-77.0); PLATELET COUNT 228 10^3/UL (140-415); RED BLOOD COUNT 3.14 10^6/ul (4.20-5.40); RED CELL DISTRIBUTION WIDTH 16.6 % (11.5-14.5)
[2018-01-01 10:00] LABS: ALANINE AMINOTRANSFERASE 64 IU/L (13-69); ALBUMIN 3.7 g/dl (3.3-4.9); ALBUMIN/GLOBULIN RATIO 0.88; ALKALINE PHOSPHATASE 165 IU/L (42-121); ANION GAP 14 (8-16); ASPARTATE AMINO TRANSFERASE 47 IU/L (15-46); BILIRUBIN,INDIRECT 0.1 mg/dl (0-1.1); BILIRUBIN,TOTAL 0.1 mg/dl (0.2-1.3); BLOOD UREA NITROGEN 27 mg/dl (7-20); CALCIUM 8.9 mg/dl (8.4-10.2); CARBON DIOXIDE 29 mmol/L (21-31); CHLORIDE 101 mmol/L (97-110); CREATININE 2.11 mg/dl (0.44-1.00); GLUCOSE 148 mg/dl (70-220); POTASSIUM 4.2 mmol/L (3.5-5.1); SODIUM 140 mmol/L (135-144); TOTAL PROTEIN 7.9 g/dl (6.1-8.1)
[2018-01-01] MEDS: EPOETIN 4000 UNITS/1 ML INJ (ESRD) SC (17:21)
[2018-01-01] MEDS ORDERED: SOD CHLORIDE 0.9% 1,000 ML IV (19:43)
[2018-01-01] MEDS ORDERED: SODIUM CHLORIDE 0.9% 1L BAG IV (20:00)
[2018-01-01] MEDS ORDERED: HEPARIN 1000 UNITS/ML 10 ML INJ CATHETER (20:00)
[2018-01-01] MEDS: LATANOPROST 0.005% 2.5 ML OPH BOTH EYES (21:48)
[2018-01-01] MEDS: ATORVASTATIN 40 MG TAB PO (21:49)
[2018-01-01] MEDS: INSULIN GLARGINE [LANtus] 3 ML PEN SC (21:53)
[2018-01-02] MEDS: LEVOTHYROXINE 125 MCG TAB PO (06:10)
[2018-01-02] MEDS: MULTIVIT/CA CARB/B CMPLX/FA TAB PO (08:40)
[2018-01-02] MEDS: INSULIN ASPART [NOVOLOG] 3 ML PEN SC ×7 (08:41→21:00)
[2018-01-02] MEDS: ASPIRIN 81 MG TAB NGT (08:42)
[2018-01-02] MEDS: ALLOPURINOL 100 MG TAB PO (08:42)
[2018-01-02] MEDS: AMLODIPINE 5 MG TAB PO ×2 (08:42→21:13)
[2018-01-02] MEDS: FLUOXETINE 10 MG CAP PO (08:42)
[2018-01-02] MEDS: BRIMONIDINE 0.2%-TIMOLOL 0.5% 5ML OPH RIGHT EYE ×2 (08:43→21:14)
[2018-01-02] MEDS: SEVELAMER CARBONATE 0.8 GM PKT PO ×3 (08:43→21:13)
[2018-01-02] MEDS: POLYETHYLENE GLYCOL 17 GM PACKET PO (08:43)
[2018-01-02] MEDS: MEGESTROL (40 MG/ML) 10ML CUP PO (08:43)
[2018-01-02] MEDS: DOCUSATE SODIUM 100 MG CAP PO ×2 (08:43→21:12)
[2018-01-02] MEDS: FOLIC ACID 1 MG TAB PO (08:43)
[2018-01-02] MEDS: HEPARIN 1000 UNITS/ML 10 ML INJ CATHETER (14:10)
[2018-01-02] MEDS: LATANOPROST 0.005% 2.5 ML OPH BOTH EYES (21:12)
[2018-01-02] MEDS: ATORVASTATIN 40 MG TAB PO (21:13)
[2018-01-02] MEDS: INSULIN GLARGINE [LANtus] 3 ML PEN SC (21:24)
[2018-01-02 21:40] LABS: VANCOMYCIN,TROUGH 6.7 ug/ml (10.0-20.0)
[2018-01-02] MEDS: VANCOMYCIN 1 GM 250 ML IVPB (23:11)
[2018-01-03] MEDS: LEVOTHYROXINE 125 MCG TAB PO (07:03)
[2018-01-03] MEDS: INSULIN ASPART [NOVOLOG] 3 ML PEN SC ×7 (08:49→21:12)
[2018-01-03] MEDS: POLYETHYLENE GLYCOL 17 GM PACKET PO (08:50)
[2018-01-03] MEDS: MULTIVIT/CA CARB/B CMPLX/FA TAB PO (08:50)
[2018-01-03] MEDS: ASPIRIN 81 MG TAB NGT (08:50)
[2018-01-03] MEDS: FOLIC ACID 1 MG TAB PO (08:50)
[2018-01-03] MEDS: SEVELAMER CARBONATE 0.8 GM PKT PO ×3 (08:50→21:04)
[2018-01-03] MEDS: MEGESTROL (40 MG/ML) 10ML CUP PO (08:50)
[2018-01-03] MEDS: ALLOPURINOL 100 MG TAB PO (08:50)
[2018-01-03] MEDS: DOCUSATE SODIUM 100 MG CAP PO ×2 (08:50→21:04)
[2018-01-03] MEDS: BRIMONIDINE 0.2%-TIMOLOL 0.5% 5ML OPH RIGHT EYE ×2 (08:51→21:05)
[2018-01-03] MEDS: AMLODIPINE 5 MG TAB PO ×2 (08:51→21:04)
[2018-01-03] MEDS: FLUOXETINE 10 MG CAP PO (08:51)
[2018-01-03] MEDS: EPOETIN 4000 UNITS/1 ML INJ (ESRD) SC (17:16)
[2018-01-03] MEDS: ATORVASTATIN 40 MG TAB PO (21:04)
[2018-01-03] MEDS: LATANOPROST 0.005% 2.5 ML OPH BOTH EYES (21:05)
[2018-01-03] MEDS: INSULIN GLARGINE [LANtus] 3 ML PEN SC (21:13)
[2018-01-04] MEDS: LEVOTHYROXINE 125 MCG TAB PO (06:29)
[2018-01-04] MEDS: MULTIVIT/CA CARB/B CMPLX/FA TAB PO (08:31)
[2018-01-04] MEDS: AMLODIPINE 5 MG TAB PO ×2 (08:31→21:47)
[2018-01-04] MEDS: FLUOXETINE 10 MG CAP PO (08:31)
[2018-01-04] MEDS: DOCUSATE SODIUM 100 MG CAP PO ×2 (08:31→21:54)
[2018-01-04] MEDS: FOLIC ACID 1 MG TAB PO (08:31)
[2018-01-04] MEDS: SEVELAMER CARBONATE 0.8 GM PKT PO ×3 (08:32→21:50)
[2018-01-04] MEDS: ALLOPURINOL 100 MG TAB PO (08:32)
[2018-01-04] MEDS: BRIMONIDINE 0.2%-TIMOLOL 0.5% 5ML OPH RIGHT EYE ×2 (08:32→21:48)
[2018-01-04] MEDS: POLYETHYLENE GLYCOL 17 GM PACKET PO (08:32)
[2018-01-04] MEDS: ASPIRIN 81 MG TAB NGT (08:32)
[2018-01-04] MEDS: INSULIN ASPART [NOVOLOG] 3 ML PEN SC ×7 (08:33→21:54)
[2018-01-04] MEDS: MEGESTROL (40 MG/ML) 10ML CUP PO (08:43)
[2018-01-04] MEDS: ATORVASTATIN 40 MG TAB PO (21:47)
[2018-01-04] MEDS: LATANOPROST 0.005% 2.5 ML OPH BOTH EYES (21:48)
[2018-01-04] MEDS: INSULIN GLARGINE [LANtus] 3 ML PEN SC (21:54)
[2018-01-05] MEDS: LEVOTHYROXINE 125 MCG TAB PO (07:21)
[2018-01-05] MEDS: INSULIN ASPART [NOVOLOG] 3 ML PEN SC ×7 (08:00→22:38)
[2018-01-05] MEDS: FOLIC ACID 1 MG TAB PO (08:35)
[2018-01-05] MEDS: ALLOPURINOL 100 MG TAB PO (08:37)
[2018-01-05] MEDS: FLUOXETINE 10 MG CAP PO (08:37)
[2018-01-05] MEDS: MULTIVIT/CA CARB/B CMPLX/FA TAB PO (08:38)
[2018-01-05] MEDS: ASPIRIN 81 MG TAB NGT (08:38)
[2018-01-05] MEDS: DOCUSATE SODIUM 100 MG CAP PO ×2 (08:38→22:27)
[2018-01-05] MEDS: MEGESTROL (40 MG/ML) 10ML CUP PO (08:39)
[2018-01-05] MEDS: POLYETHYLENE GLYCOL 17 GM PACKET PO (08:39)
[2018-01-05] MEDS: SEVELAMER CARBONATE 0.8 GM PKT PO ×3 (08:39→22:29)
[2018-01-05] MEDS: AMLODIPINE 5 MG TAB PO ×2 (08:41→22:29)
[2018-01-05] MEDS: BRIMONIDINE 0.2%-TIMOLOL 0.5% 5ML OPH RIGHT EYE ×2 (08:42→22:30)
[2018-01-05 15:30] LABS: ADD MAN DIFF? NO
[2018-01-05 15:33] LABS: WHITE BLOOD COUNT 9.9 10^3/ul (4.8-10.8)
[2018-01-05 15:33] LABS: BASOPHILS % 0.3 % (0.0-2.0); EOSINOPHILS # 0.4 10^3/ul (0.0-0.5); EOSINOPHILS % 4.4 % (0.0-7.0); HEMATOCRIT 24.9 % (37.0-47.0); HEMOGLOBIN 8.1 g/dl (12.0-16.0); LYMPHOCYTES # 1.4 10^3/ul (0.8-2.9); LYMPHOCYTES % 13.7 % (15.0-51.0); MEAN CORPUSCULAR HEMOGLOBIN 30.1 pg (29.0-33.0); MEAN CORPUSCULAR HGB CONC 32.5 g/dl (32.0-37.0); MEAN CORPUSCULAR VOLUME 92.6 fl (82.0-101.0); MEAN PLATELET VOLUME 10.1 fl (7.4-10.4); MONOCYTE # 0.9 10^3/ul (0.3-0.9); MONOCYTES % 9.3 % (0.0-11.0); NEUTROPHIL # 7.1 10^3/ul (1.6-7.5); NEUTROPHILS % 71.8 % (39.0-77.0); PLATELET COUNT 224 10^3/UL (140-415); RED BLOOD COUNT 2.69 10^6/ul (4.20-5.40); RED CELL DISTRIBUTION WIDTH 16.5 % (11.5-14.5)
[2018-01-05 16:00] LABS: ALANINE AMINOTRANSFERASE 51 IU/L (13-69); ALBUMIN 3.3 g/dl (3.3-4.9); ALBUMIN/GLOBULIN RATIO 0.78; ALKALINE PHOSPHATASE 152 IU/L (42-121); ANION GAP 14 (8-16); ASPARTATE AMINO TRANSFERASE 41 IU/L (15-46); BLOOD UREA NITROGEN 73 mg/dl (7-20); CALCIUM 9.1 mg/dl (8.4-10.2); CARBON DIOXIDE 25 mmol/L (21-31); CHLORIDE 98 mmol/L (97-110); CREATININE 3.51 mg/dl (0.44-1.00); GLUCOSE 115 mg/dl (70-220); POTASSIUM 4.3 mmol/L (3.5-5.1); SODIUM 133 mmol/L (135-144); TOTAL PROTEIN 7.5 g/dl (6.1-8.1)
[2018-01-05] MEDS: ATORVASTATIN 40 MG TAB PO (22:27)
[2018-01-05] MEDS: LATANOPROST 0.005% 2.5 ML OPH BOTH EYES (22:30)
[2018-01-05] MEDS: INSULIN GLARGINE [LANtus] 3 ML PEN SC (22:38)
[2018-01-05] MEDS: VANCOMYCIN 750 MG in DEXTROSE 5% 150 ML IVPB (22:47)
[2018-01-06] MEDS: LEVOTHYROXINE 125 MCG TAB PO (07:04)
[2018-01-06] MEDS: INSULIN ASPART [NOVOLOG] 3 ML PEN SC ×4 (08:00→12:19)
[2018-01-06] MEDS: POLYETHYLENE GLYCOL 17 GM PACKET PO (08:22)
[2018-01-06] MEDS: FOLIC ACID 1 MG TAB PO (08:22)
[2018-01-06] MEDS: SEVELAMER CARBONATE 0.8 GM PKT PO (08:22)
[2018-01-06] MEDS: FLUOXETINE 10 MG CAP PO (08:22)
[2018-01-06] MEDS: DOCUSATE SODIUM 100 MG CAP PO (08:22)
[2018-01-06] MEDS: MULTIVIT/CA CARB/B CMPLX/FA TAB PO (08:22)
[2018-01-06] MEDS: AMLODIPINE 5 MG TAB PO (08:23)
[2018-01-06] MEDS: ALLOPURINOL 100 MG TAB PO (08:23)
[2018-01-06] MEDS: ASPIRIN 81 MG TAB NGT (08:23)
[2018-01-06] MEDS: MEGESTROL (40 MG/ML) 10ML CUP PO (08:23)
[2018-01-06] MEDS: BRIMONIDINE 0.2%-TIMOLOL 0.5% 5ML OPH RIGHT EYE (08:24)
== END 2018-01-06 13:03 | DRG 252 ==
LOC: ICU 11-26 06:36 → TEL 12-05 09:09 → MS2 12-13 15:45 → MS4 12-28 22:27 → E/R 14:41 → ICU 11-22 21:36 → MS4 17:44
PROVIDERS: Internal Medicine Nephrology
PROC: 03L80ZZ Occlusion of Left Brachial Artery, Open Approach (ICD-10-PCS; 2017-12-03 12:00)
PROC: 03PY0JZ Removal of Synthetic Substitute from Upper Artery, Open Approach (ICD-10-PCS; 2017-12-03 12:00)
PROC: 0JB60ZZ Excision of Chest Subcutaneous Tissue and Fascia, Open Approach (ICD-10-PCS; 2017-12-03 12:00)
PROC: 02HV33Z Insertion of Infusion Device into Superior Vena Cava, Percutaneous Approach (ICD-10-PCS; 2017-12-03 12:00)
PROC: B518YZA Fluoroscopy of Superior Vena Cava using Other Contrast, Guidance (ICD-10-PCS; 2017-12-03 12:00)
PROC: 02PY33Z Removal of Infusion Device from Great Vessel, Percutaneous Approach (ICD-10-PCS; principal; 2017-12-03 12:31)
PROC: 027V3ZZ Dilation of Superior Vena Cava, Percutaneous Approach (ICD-10-PCS; 2017-12-03 12:31)
PROC: 057N3ZZ Dilation of Left Internal Jugular Vein, Percutaneous Approach (ICD-10-PCS; 2017-12-03 12:31)
PROC: 05743ZZ Dilation of Left Innominate Vein, Percutaneous Approach (ICD-10-PCS; 2017-12-03 12:31)
PROC: 5A1945Z Respiratory Ventilation, 24-96 Consecutive Hours (ICD-10-PCS; 2017-12-03 12:31)
PROC: 0BH17EZ Insertion of Endotracheal Airway into Trachea, Via Natural or Artificial Opening (ICD-10-PCS; 2017-12-03 12:31)
PROC: 06H033Z Insertion of Infusion Device into Inferior Vena Cava, Percutaneous Approach (ICD-10-PCS; 2017-12-03 12:31)
PROC: B519YZA Fluoroscopy of Inferior Vena Cava using Other Contrast, Guidance (ICD-10-PCS; 2017-12-03 12:31)
PROC: 02PY33Z Removal of Infusion Device from Great Vessel, Percutaneous Approach (ICD-10-PCS; 2017-12-03 12:31)
PROC: 02HV33Z Insertion of Infusion Device into Superior Vena Cava, Percutaneous Approach (ICD-10-PCS; 2017-12-03 12:31)
PROC: B518YZA Fluoroscopy of Superior Vena Cava using Other Contrast, Guidance (ICD-10-PCS; 2017-12-03 12:31)
PROC: 06PY33Z Removal of Infusion Device from Lower Vein, Percutaneous Approach (ICD-10-PCS; 2017-12-03 12:31)
PROC: 02H633Z Insertion of Infusion Device into Right Atrium, Percutaneous Approach (ICD-10-PCS; 2017-12-03 12:31)
PROC: 0JH63XZ Insertion of Tunneled Vascular Access Device into Chest Subcutaneous Tissue and Fascia, Percutaneous Approach (ICD-10-PCS; 2017-12-03 12:31)
PROC: B214YZZ Fluoroscopy of Right Heart using Other Contrast (ICD-10-PCS; 2017-12-03 12:31)
PROC: 5A1D70Z Performance of Urinary Filtration, Intermittent, Less than 6 Hours Per Day (ICD-10-PCS; 2017-12-03 12:31)
PROC: 30233R1 Transfusion of Nonautologous Platelets into Peripheral Vein, Percutaneous Approach (ICD-10-PCS; 2017-12-03 12:31)
PROC: 30233N1 Transfusion of Nonautologous Red Blood Cells into Peripheral Vein, Percutaneous Approach (ICD-10-PCS; 2017-12-03 12:31)
DX: T82.7XXA Infection and inflammatory reaction due to other cardiac and vascular devices, implants and grafts, initial encounter (principal); I21.4 Non-ST elevation (NSTEMI) myocardial infarction; A41.02 Sepsis due to Methicillin resistant Staphylococcus aureus; R65.21 Severe sepsis with septic shock; J96.01 Acute respiratory failure with hypoxia; J96.02 Acute respiratory failure with hypercapnia; I33.0 Acute and subacute infective endocarditis; G93.41 Metabolic encephalopathy; J18.9 Pneumonia, unspecified organism; N18.6 End stage renal disease; I13.2 Hypertensive heart and chronic kidney disease with heart failure and with stage 5 chronic kidney disease, or end stage renal disease; I50.32 Chronic diastolic (congestive) heart failure; T82.41XA Breakdown (mechanical) of vascular dialysis catheter, initial encounter; I87.1 Compression of vein; E11.22 Type 2 diabetes mellitus with diabetic chronic kidney disease; E11.42 Type 2 diabetes mellitus with diabetic polyneuropathy; D69.6 Thrombocytopenia, unspecified; B95.62 Methicillin resistant Staphylococcus aureus infection as the cause of diseases classified elsewhere; D63.8 Anemia in other chronic diseases classified elsewhere; E03.9 Hypothyroidism, unspecified; I44.0 Atrioventricular block, first degree; I25.10 Atherosclerotic heart disease of native coronary artery without angina pectoris; M10.9 Gout, unspecified; S00.03XA Contusion of scalp, initial encounter; W18.30XA Fall on same level, unspecified, initial encounter; Z99.81 Dependence on supplemental oxygen; Z99.2 Dependence on renal dialysis; Z95.0 Presence of cardiac pacemaker; Z79.82 Long term (current) use of aspirin; Z79.4 Long term (current) use of insulin
CPT/HCPCS: 31500; 36415; 36430; 36600; 70450; 71010; 71045; 71250; 76536; 78806; 80048; 80053; 80202; 81001; 82140; 82550; 82553; 82803; 82962; 83036; 83605; 83735; 84100; 84484; 85025; 85610; 85730; 86644; 86704; 86709; 86803; 86850; 86900; 86901; 86920; 87040; 87070; 87075; 87081; 87086; 87340; 90935; 92526; 92610; 93005; 93306; 94002; 94003; 94640; 94644; 94660; 94770; 96374; 96375; 97110; 97116; 97162; 97164; 97530; 99291-25

== ENCOUNTER 2018-04-10 21:50 | Emergency (ER) | payer MEDICARE, OTHER ==
[2018-04-10 23:36] LABS: ADD MAN DIFF? NO
[2018-04-10 23:37] LABS: BASOPHILS % 0.4 % (0.0-2.0); EOSINOPHILS # 0.4 10^3/ul (0.0-0.5); EOSINOPHILS % 4.1 % (0.0-7.0); HEMATOCRIT 25.6 % (37.0-47.0); HEMOGLOBIN 7.9 g/dl (12.0-16.0); LYMPHOCYTES # 1.7 10^3/ul (0.8-2.9); MEAN CORPUSCULAR HEMOGLOBIN 29.2 pg (29.0-33.0); MEAN CORPUSCULAR HGB CONC 30.9 g/dl (32.0-37.0); MEAN CORPUSCULAR VOLUME 94.5 fl (82.0-101.0); MEAN PLATELET VOLUME 9.8 fl (7.4-10.4); MONOCYTE # 0.7 10^3/ul (0.3-0.9); MONOCYTES % 7.4 % (0.0-11.0); NEUTROPHIL # 6.3 10^3/ul (1.6-7.5); NEUTROPHILS % 68.7 % (39.0-77.0); PLATELET COUNT 287 10^3/UL (140-415); RED BLOOD COUNT 2.71 10^6/ul (4.20-5.40); RED CELL DISTRIBUTION WIDTH 18.6 % (11.5-14.5)
[2018-04-10 23:37] LABS: WHITE BLOOD COUNT 9.2 10^3/ul (4.8-10.8)
[2018-04-10 23:58] LABS: ANION GAP 13 (8-16); BLOOD UREA NITROGEN 38 mg/dl (7-20); CALCIUM 9.6 mg/dl (8.4-10.2); CARBON DIOXIDE 30 mmol/L (21-31); CHLORIDE 98 mmol/L (97-110); CREATININE 2.42 mg/dl (0.44-1.00); GLUCOSE 132 mg/dl (70-220); POTASSIUM 4.1 mmol/L (3.5-5.1); SODIUM 137 mmol/L (135-144)
[2018-04-11 00:34] LABS: INR 0.95; PROTIME 12.8 Sec (11.9-14.9)
[2018-04-11 00:35] LABS: PARTIAL THROMBOPLASTIN TIME 40.4 Sec (25.0-35.0)
[2018-04-11] MEDS: ACETAMINOPHEN 325 MG TAB PO (01:12)
== END 2018-04-11 01:32 | disposition home or self-care (01) ==
LOC: E/R 04-11 01:32
DX: D64.9 Anemia, unspecified (principal); E11.22 Type 2 diabetes mellitus with diabetic chronic kidney disease; I12.9 Hypertensive chronic kidney disease with stage 1 through stage 4 chronic kidney disease, or unspecified chronic kidney disease; E03.9 Hypothyroidism, unspecified; I25.10 Atherosclerotic heart disease of native coronary artery without angina pectoris; N18.9 Chronic kidney disease, unspecified; Z99.2 Dependence on renal dialysis; Z79.82 Long term (current) use of aspirin; Z79.4 Long term (current) use of insulin
CPT/HCPCS: 36415; 71045; 80048; 85025; 85610; 85730; 93005; 99285-25

== ENCOUNTER 2018-04-26 06:07 | Inpatient (IN) | payer MEDICARE, OTHER ==
[2018-04-26] MEDS: ALBUTEROL 0.5% (NEB) 2.5 MG/0.5 ML AMP INH (06:22)
[2018-04-26 06:43] LABS: AADO2 Arterial 260.1 mmHg (7.0-24.0); Allen Test ACCEPTAB; Arterial Base Excess 4.2 mmol/L (-3.0-3); Arterial Blood Gas Oxygen Sat 99.9 mmHG (95.0-100.0); Arterial COHb 1.1 % (0.0-3.0); Arterial Fraction of Oxyhgb 98.7 % (93.0-99.0); Arterial HCO3 31.2 mmol/L (22.0-26.0); Arterial MetHb 0.1 % (0.0-1.5); Arterial Total Hemglobin 9.2 g/dl (12.0-18.0); Arterial pCO2 61.3 mmhg (35-45); Blood Gas IEPAP 18/5; MODE MASK - BIPAP; Site Right Radial
[2018-04-26 06:44] LABS: ADD MAN DIFF? NO
[2018-04-26 06:53] LABS: WHITE BLOOD COUNT 13.1 10^3/ul (4.8-10.8)
[2018-04-26 06:53] LABS: BASOPHIL # 0.1 10^3/ul (0.0-0.1); BASOPHILS % 0.5 % (0.0-2.0); EOSINOPHILS # 0.6 10^3/ul (0.0-0.5); EOSINOPHILS % 4.5 % (0.0-7.0); HEMATOCRIT 30.6 % (37.0-47.0); HEMOGLOBIN 9.3 g/dl (12.0-16.0); LYMPHOCYTES # 3.2 10^3/ul (0.8-2.9); LYMPHOCYTES % 24.4 % (15.0-51.0); MEAN CORPUSCULAR HEMOGLOBIN 30.3 pg (29.0-33.0); MEAN CORPUSCULAR HGB CONC 30.4 g/dl (32.0-37.0); MEAN CORPUSCULAR VOLUME 99.7 fl (82.0-101.0); MEAN PLATELET VOLUME 10.4 fl (7.4-10.4); MONOCYTE # 0.8 10^3/ul (0.3-0.9); NEUTROPHIL # 8.4 10^3/ul (1.6-7.5); NEUTROPHILS % 63.8 % (39.0-77.0); PLATELET COUNT 270 10^3/UL (140-415); RED BLOOD COUNT 3.07 10^6/ul (4.20-5.40); RED CELL DISTRIBUTION WIDTH 20.3 % (11.5-14.5)
[2018-04-26 07:02] LABS: LACTIC ACID 1.8 mmol/L (0.5-2.0)
[2018-04-26 07:09] LABS: ALANINE AMINOTRANSFERASE 18 IU/L (13-69); ALBUMIN 4.2 g/dl (3.3-4.9); ALBUMIN/GLOBULIN RATIO 0.84; ALKALINE PHOSPHATASE 131 IU/L (42-121); ANION GAP 14 (8-16); ASPARTATE AMINO TRANSFERASE 29 IU/L (15-46); BILIRUBIN,INDIRECT 0.3 mg/dl (0-1.1); BILIRUBIN,TOTAL 0.3 mg/dl (0.2-1.3); BLOOD UREA NITROGEN 30 mg/dl (7-20); CALCIUM 9.5 mg/dl (8.4-10.2); CARBON DIOXIDE 34 mmol/L (21-31); CHLORIDE 95 mmol/L (97-110); CREATININE 2.16 mg/dl (0.44-1.00); GLUCOSE 304 mg/dl (70-220); INR 0.97; POTASSIUM 3.6 mmol/L (3.5-5.1); SODIUM 139 mmol/L (135-144); TOTAL PROTEIN 9.2 g/dl (6.1-8.1)
[2018-04-26 07:10] LABS: PARTIAL THROMBOPLASTIN TIME 37.3 Sec (25.0-35.0)
[2018-04-26 07:19] LABS: B-TYPE NATRIURETIC PEPTIDE 2800 PG/ML (0-450)
[2018-04-26 07:23] LABS: TROPONIN-I 0.405 ng/ml (0.000-0.120)
[2018-04-26] MEDS ORDERED: ALBUMIN HUMAN 25% 50 ML IV (08:00)
[2018-04-26] MEDS ORDERED: ONDANSETRON 4 MG INJ IV (08:00)
[2018-04-26] MEDS ORDERED: SODIUM CHLORIDE 0.9% 1L BAG IV (08:00)
[2018-04-26] MEDS ORDERED: ACETAMINOPHEN 325 MG TAB PO ×2 (08:00→17:30)
[2018-04-26] MEDS: CEFEPIME 2GM/50 ML (PMX) 50 ML IVPB (08:18)
[2018-04-26] MEDS: ASPIRIN 325 MG TAB PO (08:21)
[2018-04-26] MEDS: VANCOMYCIN 1 GM (PMX) 250 ML IVPB (08:35)
[2018-04-26 09:19] LABS: LACTIC ACID 1.1 mmol/L (0.5-2.0)
[2018-04-26] MEDS: HEPARIN 1000 UNITS/ML 10 ML INJ CATHETER (13:00)
[2018-04-26 15:40] LABS: CREATINE KINASE 58 IU/L (23-200)
[2018-04-26 15:53] LABS: CK INDEX 1.8; CK-MB 1.07 ng/ml (0.0-2.4)
[2018-04-26 16:21] LABS: HEPATITIS B SURFACE ANTIGEN NEGATIVE (NEGATIVE)
[2018-04-26] MEDS ORDERED: GLUCAGON 1 MG INJ IM (18:00)
[2018-04-26] MEDS ORDERED: GLUCOSE GEL 15 GRAM TUBE PO ×2 (18:00)
[2018-04-26] MEDS ORDERED: GLUCOSE GEL 15 GRAM TUBE BUCCAL (18:00)
[2018-04-26] MEDS ORDERED: DEXTROSE 50% 50 ML SYRINGE IV ×2 (18:00)
[2018-04-26] MEDS: SEVELAMER CARBONATE 0.8 GM PKT PO (18:26)
[2018-04-26] MEDS: CEFEPIME 1GM/50 ML (PMX) 50 ML IVPB (18:26)
[2018-04-26] MEDS: INSULIN ASPART [NOVOLOG] 3 ML PEN SC ×2 (18:31→20:23)
[2018-04-26 18:50] LABS: CREATINE KINASE 47 IU/L (23-200)
[2018-04-26 19:01] LABS: CK INDEX 2.1; CK-MB 1.01 ng/ml (0.0-2.4)
[2018-04-26 19:15] LABS: TROPONIN-I 0.334 ng/ml (0.000-0.120)
[2018-04-26] MEDS: ATORVASTATIN 40 MG TAB PO (20:20)
[2018-04-27] MEDS: ACCU-CHEK XX (02:25)
[2018-04-27] MEDS ORDERED: VANCOMYCIN IV PER PHARMACY XX (05:00)
[2018-04-27] MEDS: LEVOTHYROXINE 125 MCG TAB PO (06:07)
[2018-04-27 07:18] LABS: ADD MAN DIFF? NO
[2018-04-27 07:23] LABS: WHITE BLOOD COUNT 9.2 10^3/ul (4.8-10.8)
[2018-04-27 07:23] LABS: BASOPHIL # 0.1 10^3/ul (0.0-0.1); BASOPHILS % 0.5 % (0.0-2.0); EOSINOPHILS # 0.4 10^3/ul (0.0-0.5); EOSINOPHILS % 4.4 % (0.0-7.0); HEMATOCRIT 26.4 % (37.0-47.0); HEMOGLOBIN 8.1 g/dl (12.0-16.0); LYMPHOCYTES # 1.2 10^3/ul (0.8-2.9); MEAN CORPUSCULAR HEMOGLOBIN 30.7 pg (29.0-33.0); MEAN CORPUSCULAR HGB CONC 30.7 g/dl (32.0-37.0); MEAN PLATELET VOLUME 10.2 fl (7.4-10.4); MONOCYTE # 0.7 10^3/ul (0.3-0.9); NEUTROPHIL # 6.8 10^3/ul (1.6-7.5); NEUTROPHILS % 73.8 % (39.0-77.0); PLATELET COUNT 215 10^3/UL (140-415); RED BLOOD COUNT 2.64 10^6/ul (4.20-5.40); RED CELL DISTRIBUTION WIDTH 20.3 % (11.5-14.5)
[2018-04-27 07:49] LABS: ALANINE AMINOTRANSFERASE 19 IU/L (13-69); ALBUMIN 3.6 g/dl (3.3-4.9); ALBUMIN/GLOBULIN RATIO 0.85; ALKALINE PHOSPHATASE 96 IU/L (42-121); ANION GAP 13 (8-16); ASPARTATE AMINO TRANSFERASE 25 IU/L (15-46); BILIRUBIN,INDIRECT 0.3 mg/dl (0-1.1); BILIRUBIN,TOTAL 0.3 mg/dl (0.2-1.3); BLOOD UREA NITROGEN 18 mg/dl (7-20); CALCIUM 8.6 mg/dl (8.4-10.2); CARBON DIOXIDE 29 mmol/L (21-31); CHLORIDE 99 mmol/L (97-110); CREATININE 1.96 mg/dl (0.44-1.00); GLUCOSE 150 mg/dl (70-220); POTASSIUM 4.2 mmol/L (3.5-5.1); SODIUM 137 mmol/L (135-144); TOTAL PROTEIN 7.8 g/dl (6.1-8.1)
[2018-04-27] MEDS: INSULIN ASPART [NOVOLOG] 3 ML PEN SC ×4 (08:05→20:55)
[2018-04-27] MEDS: SEVELAMER CARBONATE 0.8 GM PKT PO ×3 (08:17→17:56)
[2018-04-27] MEDS: FOLIC ACID 1 MG TAB PO (08:18)
[2018-04-27] MEDS: AMLODIPINE 10 MG TAB PO (08:18)
[2018-04-27] MEDS: ASPIRIN (EC) 81 MG TAB PO (08:18)
[2018-04-27] MEDS: FUROSEMIDE 40 MG TAB PO (08:19)
[2018-04-27] MEDS: MULTIVIT/CA CARB/B CMPLX/FA TAB PO (08:19)
[2018-04-27] MEDS: LISINOPRIL 10 MG TAB PO (08:19)
[2018-04-27] MEDS: ALLOPURINOL 100 MG TAB PO (08:19)
[2018-04-27] MEDS: CEFEPIME 1GM/50 ML (PMX) 50 ML IVPB (18:01)
[2018-04-27] MEDS: LATANOPROST 0.005% 2.5 ML OPH BOTH EYES (20:49)
[2018-04-27] MEDS: ATORVASTATIN 40 MG TAB PO (20:49)
[2018-04-28] MEDS: ACCU-CHEK XX (02:34)
[2018-04-28 05:49] LABS: ADD MAN DIFF? NO
[2018-04-28 05:57] LABS: WHITE BLOOD COUNT 10.2 10^3/ul (4.8-10.8)
[2018-04-28 05:57] LABS: BASOPHILS % 0.4 % (0.0-2.0); EOSINOPHILS # 0.6 10^3/ul (0.0-0.5); EOSINOPHILS % 5.6 % (0.0-7.0); HEMATOCRIT 25.7 % (37.0-47.0); LYMPHOCYTES # 1.7 10^3/ul (0.8-2.9); LYMPHOCYTES % 16.6 % (15.0-51.0); MEAN CORPUSCULAR HEMOGLOBIN 31.3 pg (29.0-33.0); MEAN CORPUSCULAR HGB CONC 31.1 g/dl (32.0-37.0); MEAN CORPUSCULAR VOLUME 100.4 fl (82.0-101.0); MEAN PLATELET VOLUME 10.4 fl (7.4-10.4); MONOCYTE # 0.9 10^3/ul (0.3-0.9); MONOCYTES % 8.5 % (0.0-11.0); NEUTROPHILS % 68.6 % (39.0-77.0); PLATELET COUNT 208 10^3/UL (140-415); RED BLOOD COUNT 2.56 10^6/ul (4.20-5.40); RED CELL DISTRIBUTION WIDTH 19.7 % (11.5-14.5)
[2018-04-28] MEDS: LEVOTHYROXINE 125 MCG TAB PO (06:11)
[2018-04-28 06:19] LABS: CHOLESTEROL 133 mg/dl (100-200)
[2018-04-28 06:19] LABS: ANION GAP 12 (8-16); BLOOD UREA NITROGEN 31 mg/dl (7-20); CALCIUM 8.7 mg/dl (8.4-10.2); CARBON DIOXIDE 30 mmol/L (21-31); CHLORIDE 98 mmol/L (97-110); CREATINE KINASE 41 IU/L (23-200); CREATININE 2.57 mg/dl (0.44-1.00); GLUCOSE 178 mg/dl (70-220); HDL CHOLESTEROL 66 mg/dl (33-92); LDL CHOLESTEROL,CALCULATED 48 mg/dl; POTASSIUM 4.2 mmol/L (3.5-5.1); SODIUM 136 mmol/L (135-144); TRIGLYCERIDES 96 mg/dl (0-149)
[2018-04-28 06:21] LABS: VANCOMYCIN,RANDOM 7.6 ug/ml
[2018-04-28 06:28] LABS: CK INDEX 2.4; CK-MB 0.99 ng/ml (0.0-2.4)
[2018-04-28 06:30] LABS: TROPONIN-I 0.152 ng/ml (0.000-0.120)
[2018-04-28 07:15] LABS: PHOSPHORUS 3.5 mg/dl (2.5-4.9)
[2018-04-28 07:15] LABS: MAGNESIUM 2.3 mg/dl (1.7-2.5)
[2018-04-28] MEDS: INSULIN ASPART [NOVOLOG] 3 ML PEN SC ×4 (07:57→20:14)
[2018-04-28] MEDS ORDERED: VANCOMYCIN 1 GM (PMX) 250 ML IVPB (08:00)
[2018-04-28] MEDS: SEVELAMER CARBONATE 0.8 GM PKT PO ×3 (08:55→17:43)
[2018-04-28] MEDS: FOLIC ACID 1 MG TAB PO (08:55)
[2018-04-28] MEDS: MULTIVIT/CA CARB/B CMPLX/FA TAB PO (08:56)
[2018-04-28] MEDS: FUROSEMIDE 40 MG TAB PO (08:56)
[2018-04-28] MEDS: ASPIRIN (EC) 81 MG TAB PO (08:56)
[2018-04-28] MEDS: AMLODIPINE 10 MG TAB PO (08:56)
[2018-04-28] MEDS: LISINOPRIL 10 MG TAB PO (08:56)
[2018-04-28] MEDS: ALLOPURINOL 100 MG TAB PO (08:57)
[2018-04-28] MEDS: VANCOMYCIN 1 GM 250 ML IVPB (12:56)
[2018-04-28] MEDS ORDERED: SODIUM CHLORIDE 0.9% 1L BAG IV (13:30)
[2018-04-28] MEDS ORDERED: ALBUMIN HUMAN 25% 50 ML IV (13:30)
[2018-04-28] MEDS ORDERED: HEPARIN 1000 UNITS/ML 10 ML INJ (14:08)
[2018-04-28] MEDS ORDERED: IODIXANOL LOCM 50 ML BTL (14:08)
[2018-04-28] MEDS ORDERED: LIDOCAINE 1% (MDV) 20 ML INJ (14:08)
[2018-04-28] MEDS: CEFEPIME 1GM/50 ML (PMX) 50 ML IVPB (18:00)
[2018-04-28] MEDS: HEPARIN 1000 UNITS/ML 10 ML INJ CATHETER (19:00)
[2018-04-28] MEDS: ATORVASTATIN 40 MG TAB PO (20:13)
[2018-04-28] MEDS: LATANOPROST 0.005% 2.5 ML OPH BOTH EYES (20:14)
[2018-04-29] MEDS: ACCU-CHEK XX (02:00)
[2018-04-29] MEDS: LEVOTHYROXINE 125 MCG TAB PO (06:08)
[2018-04-29] MEDS: INSULIN ASPART [NOVOLOG] 3 ML PEN SC ×4 (08:15→20:50)
[2018-04-29] MEDS: ASPIRIN (EC) 81 MG TAB PO (08:16)
[2018-04-29] MEDS: MULTIVIT/CA CARB/B CMPLX/FA TAB PO (08:16)
[2018-04-29] MEDS: FOLIC ACID 1 MG TAB PO (08:16)
[2018-04-29] MEDS: ALLOPURINOL 100 MG TAB PO (08:16)
[2018-04-29] MEDS: AMLODIPINE 10 MG TAB PO (08:18)
[2018-04-29] MEDS: LISINOPRIL 10 MG TAB PO (08:18)
[2018-04-29] MEDS: FUROSEMIDE 40 MG TAB PO (08:19)
[2018-04-29] MEDS: SEVELAMER CARBONATE 0.8 GM PKT PO ×3 (08:21→17:34)
[2018-04-29] MEDS ORDERED: PENDING SANTYL ORDER FOR WOUND CARE XX (12:30)
[2018-04-29] MEDS: DAPTOMYCIN 400 MG in SOD CHLORIDE 0.9% 100 ML IVPB (13:40)
[2018-04-29] MEDS: BALSAM PERU/CASTOR OIL 60 GM TUBE TOP ×2 (13:40→20:48)
[2018-04-29] MEDS ORDERED: SOD CHLORIDE 0.9% 1,000 ML IV (15:59)
[2018-04-29] MEDS ORDERED: HEPARIN 1000 UNITS/ML 10 ML INJ CATHETER (16:00)
[2018-04-29] MEDS ORDERED: ALBUMIN HUMAN 25% 50 ML IV (16:00)
[2018-04-29] MEDS: LATANOPROST 0.005% 2.5 ML OPH BOTH EYES (20:48)
[2018-04-29] MEDS: ATORVASTATIN 40 MG TAB PO (20:49)
[2018-04-30] MEDS: ACCU-CHEK XX (02:00)
[2018-04-30] MEDS: LEVOTHYROXINE 125 MCG TAB PO (05:00)
[2018-04-30] MEDS: SEVELAMER CARBONATE 0.8 GM PKT PO ×3 (07:55→17:19)
[2018-04-30] MEDS: INSULIN ASPART [NOVOLOG] 3 ML PEN SC ×4 (07:55→21:27)
[2018-04-30] MEDS: POVIDONE IODINE 10% 28.4 GM OINT TOP (08:39)
[2018-04-30] MEDS: BALSAM PERU/CASTOR OIL 60 GM TUBE TOP ×2 (08:39→21:28)
[2018-04-30] MEDS: MULTIVIT/CA CARB/B CMPLX/FA TAB PO (09:00)
[2018-04-30] MEDS: FUROSEMIDE 40 MG TAB PO (09:00)
[2018-04-30 11:10] LABS: ADD MAN DIFF? NO
[2018-04-30 11:14] LABS: WHITE BLOOD COUNT 7.8 10^3/ul (4.8-10.8)
[2018-04-30 11:14] LABS: BASOPHILS % 0.5 % (0.0-2.0); EOSINOPHILS # 0.5 10^3/ul (0.0-0.5); EOSINOPHILS % 6.5 % (0.0-7.0); HEMOGLOBIN 7.4 g/dl (12.0-16.0); LYMPHOCYTES # 1.3 10^3/ul (0.8-2.9); LYMPHOCYTES % 16.8 % (15.0-51.0); MEAN CORPUSCULAR HEMOGLOBIN 30.7 pg (29.0-33.0); MEAN CORPUSCULAR HGB CONC 30.8 g/dl (32.0-37.0); MEAN CORPUSCULAR VOLUME 99.6 fl (82.0-101.0); MEAN PLATELET VOLUME 10.3 fl (7.4-10.4); MONOCYTE # 0.8 10^3/ul (0.3-0.9); MONOCYTES % 10.3 % (0.0-11.0); NEUTROPHIL # 5.1 10^3/ul (1.6-7.5); NEUTROPHILS % 65.5 % (39.0-77.0); PLATELET COUNT 206 10^3/UL (140-415); RED BLOOD COUNT 2.41 10^6/ul (4.20-5.40); RED CELL DISTRIBUTION WIDTH 19.7 % (11.5-14.5)
[2018-04-30 11:39] LABS: CREATINE KINASE 36 IU/L (23-200)
[2018-04-30 11:40] LABS: ANION GAP 13 (8-16); BLOOD UREA NITROGEN 22 mg/dl (7-20); CALCIUM 9.1 mg/dl (8.4-10.2); CARBON DIOXIDE 29 mmol/L (21-31); CHLORIDE 100 mmol/L (97-110); CREATININE 1.98 mg/dl (0.44-1.00); GLUCOSE 172 mg/dl (70-220); POTASSIUM 3.7 mmol/L (3.5-5.1); SODIUM 138 mmol/L (135-144)
[2018-04-30 11:41] LABS: MAGNESIUM 2.1 mg/dl (1.7-2.5)
[2018-04-30 11:41] LABS: PHOSPHORUS 2.9 mg/dl (2.5-4.9)
[2018-04-30] MEDS: HEPARIN 1000 UNITS/ML 10 ML INJ CATHETER (13:07)
[2018-04-30] MEDS: AMLODIPINE 10 MG TAB PO (13:36)
[2018-04-30] MEDS: FOLIC ACID 1 MG TAB PO (13:36)
[2018-04-30] MEDS: ASPIRIN (EC) 81 MG TAB PO (13:37)
[2018-04-30] MEDS: LISINOPRIL 10 MG TAB PO (13:37)
[2018-04-30] MEDS: ALLOPURINOL 100 MG TAB PO (13:38)
[2018-04-30] MEDS: LATANOPROST 0.005% 2.5 ML OPH BOTH EYES (20:58)
[2018-04-30] MEDS: ATORVASTATIN 40 MG TAB PO (20:58)
[2018-05-01] MEDS: ACCU-CHEK XX (01:39)
[2018-05-01] MEDS: LEVOTHYROXINE 125 MCG TAB PO (06:11)
[2018-05-01 07:13] LABS: ADD MAN DIFF? NO
[2018-05-01 07:20] LABS: BASOPHIL # 0.1 10^3/ul (0.0-0.1); BASOPHILS % 0.8 % (0.0-2.0); EOSINOPHILS # 0.6 10^3/ul (0.0-0.5); EOSINOPHILS % 7.1 % (0.0-7.0); HEMATOCRIT 27.9 % (37.0-47.0); HEMOGLOBIN 8.4 g/dl (12.0-16.0); LYMPHOCYTES # 1.6 10^3/ul (0.8-2.9); LYMPHOCYTES % 19.8 % (15.0-51.0); MEAN CORPUSCULAR HEMOGLOBIN 29.6 pg (29.0-33.0); MEAN CORPUSCULAR HGB CONC 30.1 g/dl (32.0-37.0); MEAN CORPUSCULAR VOLUME 98.2 fl (82.0-101.0); MEAN PLATELET VOLUME 10.7 fl (7.4-10.4); MONOCYTE # 0.9 10^3/ul (0.3-0.9); MONOCYTES % 11.2 % (0.0-11.0); NEUTROPHIL # 4.8 10^3/ul (1.6-7.5); NEUTROPHILS % 60.7 % (39.0-77.0); PLATELET COUNT 211 10^3/UL (140-415); RED BLOOD COUNT 2.84 10^6/ul (4.20-5.40); RED CELL DISTRIBUTION WIDTH 19.2 % (11.5-14.5)
[2018-05-01 07:20] LABS: WHITE BLOOD COUNT 7.9 10^3/ul (4.8-10.8)
[2018-05-01 07:39] LABS: ANION GAP 11 (8-16); BLOOD UREA NITROGEN 28 mg/dl (7-20); CARBON DIOXIDE 31 mmol/L (21-31); CHLORIDE 101 mmol/L (97-110); CREATININE 2.25 mg/dl (0.44-1.00); GLUCOSE 160 mg/dl (70-220); POTASSIUM 4.4 mmol/L (3.5-5.1); SODIUM 139 mmol/L (135-144)
[2018-05-01 07:51] LABS: MAGNESIUM 2.1 mg/dl (1.7-2.5)
[2018-05-01 07:51] LABS: PHOSPHORUS 3.5 mg/dl (2.5-4.9)
[2018-05-01] MEDS: SEVELAMER CARBONATE 0.8 GM PKT PO ×3 (08:59→17:42)
[2018-05-01] MEDS: ALLOPURINOL 100 MG TAB PO (09:02)
[2018-05-01] MEDS: LISINOPRIL 10 MG TAB PO (09:02)
[2018-05-01] MEDS: FUROSEMIDE 40 MG TAB PO (09:03)
[2018-05-01] MEDS: ASPIRIN (EC) 81 MG TAB PO (09:04)
[2018-05-01] MEDS: FOLIC ACID 1 MG TAB PO (09:04)
[2018-05-01] MEDS: AMLODIPINE 10 MG TAB PO (09:04)
[2018-05-01] MEDS: MULTIVIT/CA CARB/B CMPLX/FA TAB PO (09:05)
[2018-05-01] MEDS: INSULIN ASPART [NOVOLOG] 3 ML PEN SC ×4 (09:10→21:33)
[2018-05-01] MEDS: BALSAM PERU/CASTOR OIL 60 GM TUBE TOP ×2 (09:11→21:33)
[2018-05-01] MEDS: DAPTOMYCIN 400 MG in SOD CHLORIDE 0.9% 100 ML IVPB (13:00)
[2018-05-01] MEDS ORDERED: IPRATROPIUM (NEB) 0.5 MG/2.5 ML AMP HHN (18:30)
[2018-05-01] MEDS: NITROGLYCERIN (SL) 0.4 MG TAB SL ×2 (18:37→20:30)
[2018-05-01] MEDS: ALBUTEROL/IPRATROPIUM (NEB) 3 ML AMP HHN (18:42)
[2018-05-01] MEDS ORDERED: HEPARIN 1000 UNITS/ML 10 ML INJ CATHETER (19:30)
[2018-05-01] MEDS ORDERED: ALBUMIN HUMAN 25% 50 ML IV (19:30)
[2018-05-01] MEDS ORDERED: SODIUM CHLORIDE 0.9% 1L BAG IV (19:30)
[2018-05-01] MEDS: ATORVASTATIN 40 MG TAB PO (20:27)
[2018-05-01] MEDS: LATANOPROST 0.005% 2.5 ML OPH BOTH EYES (20:29)
[2018-05-02] MEDS: ACCU-CHEK XX (01:29)
[2018-05-02] MEDS: ALBUTEROL/IPRATROPIUM (NEB) 3 ML AMP HHN ×2 (03:52→12:16)
[2018-05-02] MEDS: LEVOTHYROXINE 125 MCG TAB PO (06:19)
[2018-05-02] MEDS: INSULIN ASPART [NOVOLOG] 3 ML PEN SC ×4 (07:36→20:13)
[2018-05-02] MEDS: ASPIRIN (EC) 81 MG TAB PO (08:19)
[2018-05-02] MEDS: SEVELAMER CARBONATE 0.8 GM PKT PO ×3 (08:19→17:36)
[2018-05-02] MEDS: FOLIC ACID 1 MG TAB PO (08:19)
[2018-05-02] MEDS: ALLOPURINOL 100 MG TAB PO (08:19)
[2018-05-02] MEDS: MULTIVIT/CA CARB/B CMPLX/FA TAB PO (08:19)
[2018-05-02] MEDS: BALSAM PERU/CASTOR OIL 60 GM TUBE TOP ×2 (08:23→20:10)
[2018-05-02] MEDS: FUROSEMIDE 40 MG TAB PO (09:00)
[2018-05-02] MEDS: AMLODIPINE 10 MG TAB PO (09:00)
[2018-05-02] MEDS: LISINOPRIL 10 MG TAB PO (09:00)
[2018-05-02] MEDS: ATORVASTATIN 40 MG TAB PO (20:08)
[2018-05-02] MEDS: LATANOPROST 0.005% 2.5 ML OPH BOTH EYES (20:12)
[2018-05-02] MEDS: INSULIN GLARGINE [LANtus] 3 ML PEN SC (20:23)
[2018-05-03] MEDS: ACCU-CHEK XX (02:00)
[2018-05-03] MEDS: LEVOTHYROXINE 125 MCG TAB PO (05:53)
[2018-05-03 07:33] LABS: HEMOGLOBIN A1C 6.3 % (0-5.9)
[2018-05-03 07:36] LABS: ANION GAP 7 (8-16); BLOOD UREA NITROGEN 28 mg/dl (7-20); CALCIUM 8.8 mg/dl (8.4-10.2); CARBON DIOXIDE 31 mmol/L (21-31); CHLORIDE 100 mmol/L (97-110); CREATININE 1.79 mg/dl (0.44-1.00); GLUCOSE 127 mg/dl (70-220); SODIUM 134 mmol/L (135-144)
[2018-05-03] MEDS: INSULIN ASPART [NOVOLOG] 3 ML PEN SC ×4 (07:43→20:53)
[2018-05-03] MEDS: SEVELAMER CARBONATE 0.8 GM PKT PO ×3 (07:43→17:55)
[2018-05-03] MEDS: FOLIC ACID 1 MG TAB PO (08:41)
[2018-05-03] MEDS: AMLODIPINE 10 MG TAB PO (08:41)
[2018-05-03] MEDS: FUROSEMIDE 40 MG TAB PO (08:41)
[2018-05-03] MEDS: LISINOPRIL 10 MG TAB PO (08:42)
[2018-05-03] MEDS: MULTIVIT/CA CARB/B CMPLX/FA TAB PO (08:42)
[2018-05-03] MEDS: ALLOPURINOL 100 MG TAB PO (08:42)
[2018-05-03] MEDS: ASPIRIN (EC) 81 MG TAB PO (08:42)
[2018-05-03] MEDS: BALSAM PERU/CASTOR OIL 60 GM TUBE TOP ×2 (08:43→21:04)
[2018-05-03] MEDS: DAPTOMYCIN 400 MG in SOD CHLORIDE 0.9% 100 ML IVPB (12:25)
[2018-05-03] MEDS ORDERED: SODIUM CHLORIDE 0.9% 1L BAG IV (16:30)
[2018-05-03] MEDS: ATORVASTATIN 40 MG TAB PO (20:42)
[2018-05-03] MEDS: LATANOPROST 0.005% 2.5 ML OPH BOTH EYES (20:42)
[2018-05-03] MEDS: INSULIN GLARGINE [LANtus] 3 ML PEN SC (20:51)
[2018-05-03] MEDS: NITROGLYCERIN (SL) 0.4 MG TAB SL (20:57)
[2018-05-04] MEDS: ACCU-CHEK XX (02:00)
[2018-05-04] MEDS: LEVOTHYROXINE 125 MCG TAB PO (06:16)
[2018-05-04] MEDS ORDERED: SUCCINYLCHOLINE CHLORIDE 100 MG/5 ML SYG IV (07:00)
[2018-05-04] MEDS ORDERED: ETOMIDATE 20 MG INJ (07:00)
[2018-05-04] MEDS ORDERED: MIDAZOLAM 1 MG/ML 2 ML INJ (07:00)
[2018-05-04 07:22] LABS: ADD MAN DIFF? NO
[2018-05-04 07:27] LABS: BASOPHIL # 0.1 10^3/ul (0.0-0.1); BASOPHILS % 0.5 % (0.0-2.0); EOSINOPHILS # 0.3 10^3/ul (0.0-0.5); EOSINOPHILS % 2.4 % (0.0-7.0); HEMATOCRIT 27.8 % (37.0-47.0); HEMOGLOBIN 8.4 g/dl (12.0-16.0); LYMPHOCYTES # 0.8 10^3/ul (0.8-2.9); LYMPHOCYTES % 7.6 % (15.0-51.0); MEAN CORPUSCULAR HEMOGLOBIN 30.1 pg (29.0-33.0); MEAN CORPUSCULAR HGB CONC 30.2 g/dl (32.0-37.0); MEAN CORPUSCULAR VOLUME 99.6 fl (82.0-101.0); MEAN PLATELET VOLUME 10.5 fl (7.4-10.4); MONOCYTE # 0.8 10^3/ul (0.3-0.9); MONOCYTES % 7.1 % (0.0-11.0); NEUTROPHIL # 8.9 10^3/ul (1.6-7.5); PLATELET COUNT 208 10^3/UL (140-415); RED BLOOD COUNT 2.79 10^6/ul (4.20-5.40); RED CELL DISTRIBUTION WIDTH 17.9 % (11.5-14.5)
[2018-05-04 07:27] LABS: WHITE BLOOD COUNT 10.8 10^3/ul (4.8-10.8)
[2018-05-04 07:45] LABS: ANION GAP 14 (8-16); BLOOD UREA NITROGEN 40 mg/dl (7-20); CARBON DIOXIDE 30 mmol/L (21-31); CHLORIDE 95 mmol/L (97-110); CREATININE 2.33 mg/dl (0.44-1.00); GLUCOSE 213 mg/dl (70-220); POTASSIUM 4.8 mmol/L (3.5-5.1); SODIUM 134 mmol/L (135-144)
[2018-05-04] MEDS: SEVELAMER CARBONATE 0.8 GM PKT PO ×4 (07:47→17:35)
[2018-05-04 07:49] LABS: PHOSPHORUS 5.9 mg/dl (2.5-4.9)
[2018-05-04 07:49] LABS: MAGNESIUM 2.5 mg/dl (1.7-2.5)
[2018-05-04] MEDS: INSULIN ASPART [NOVOLOG] 3 ML PEN SC ×4 (07:49→21:00)
[2018-05-04] MEDS: FOLIC ACID 1 MG TAB PO (08:53)
[2018-05-04] MEDS: ASPIRIN (EC) 81 MG TAB PO (08:54)
[2018-05-04] MEDS: AMLODIPINE 10 MG TAB PO (08:54)
[2018-05-04] MEDS: FUROSEMIDE 40 MG TAB PO (08:54)
[2018-05-04] MEDS: MULTIVIT/CA CARB/B CMPLX/FA TAB PO (08:55)
[2018-05-04] MEDS: ALLOPURINOL 100 MG TAB PO (08:55)
[2018-05-04] MEDS: LISINOPRIL 10 MG TAB PO (08:55)
[2018-05-04] MEDS: BALSAM PERU/CASTOR OIL 60 GM TUBE TOP ×2 (08:57→21:31)
[2018-05-04 10:30] LABS: AADO2 Arterial 130.2 mmHg (7.0-24.0); Allen Test ACCEPTAB; Arterial Base Excess 0.6 mmol/L (-3.0-3); Arterial COHb 1.4 % (0.0-3.0); Arterial Fraction of Oxyhgb 90.6 % (93.0-99.0); Arterial MetHb 0.1 % (0.0-1.5); Arterial pCO2 99.2 mmhg (35-45); MODE MASK - SIMPLE; Site Right Radial
[2018-05-04] MEDS: ETOMIDATE 20 MG INJ IV (10:30)
[2018-05-04] MEDS: SUCCINYLCHOLINE CHLORIDE 100 MG/5 ML SYG IV (10:30)
[2018-05-04] MEDS: ALBUMIN HUMAN 25% 50 ML IV (11:02)
[2018-05-04] MEDS: IOHEXOL 100 ML (11:15)
[2018-05-04] MEDS: SOD CHLORIDE 0.9% 100 ML (11:15)
[2018-05-04] MEDS: IOHEXOL 350MG/ML 50 ML BTL (11:22)
[2018-05-04] MEDS: MIDAZOLAM 1 MG/ML 2 ML INJ IV (11:30)
[2018-05-04] MEDS: NORepinephrine 8MG/250 ML (PMX 250 ML IV (11:35)
[2018-05-04] MEDS: HEPARIN 1000 UNITS/ML 10 ML INJ CATHETER (11:39)
[2018-05-04] MEDS ORDERED: NORepinephrine 8MG/250 ML (PMX 250 ML (11:41)
[2018-05-04] MEDS: PROPOFOL 100 ML IV ×2 (13:25→18:33)
[2018-05-04 15:19] LABS: AADO2 Arterial 140.6 mmHg (7.0-24.0); Allen Test ACCEPTAB; Arterial Base Excess 0.4 mmol/L (-3.0-3); Arterial Blood Gas Oxygen Sat 97.8 mmHG (95.0-100.0); Arterial COHb 0.8 % (0.0-3.0); Arterial Fraction of Oxyhgb 96.7 % (93.0-99.0); Arterial HCO3 25.1 mmol/L (22.0-26.0); Arterial MetHb 0.3 % (0.0-1.5); Arterial Total Hemglobin 10.3 g/dl (12.0-18.0); MODE VENT - AC; Site Right Radial
[2018-05-04] MEDS: [UNRECOGNIZED DRUG - OTHER] IVPB (15:48)
[2018-05-04] MEDS: DOXYCYCLINE 100 MG TAB PO ×2 (15:48→23:01)
[2018-05-04 18:12] LABS: TROPONIN-I 0.304 ng/ml (0.000-0.120)
[2018-05-04 18:26] LABS: ANION GAP 13 (8-16); BLOOD UREA NITROGEN 36 mg/dl (7-20); CALCIUM 8.7 mg/dl (8.4-10.2); CARBON DIOXIDE 28 mmol/L (21-31); CHLORIDE 97 mmol/L (97-110); CREATININE 1.96 mg/dl (0.44-1.00); GLUCOSE 134 mg/dl (70-220); POTASSIUM 3.7 mmol/L (3.5-5.1); SODIUM 134 mmol/L (135-144)
[2018-05-04] MEDS: ATORVASTATIN 40 MG TAB PO (21:20)
[2018-05-04] MEDS: INSULIN GLARGINE [LANtus] 3 ML PEN SC (21:55)
[2018-05-04] MEDS: DEXTROSE 5%-0.45% NACL 1,000 ML IV (22:09)
[2018-05-04] MEDS: LATANOPROST 0.005% 2.5 ML OPH BOTH EYES (23:01)
[2018-05-05 01:37] LABS: TROPONIN-I 0.336 ng/ml (0.000-0.120)
[2018-05-05] MEDS: PROPOFOL 100 ML IV ×4 (02:00→22:28)
[2018-05-05] MEDS: ACCU-CHEK XX (02:00)
[2018-05-05 05:57] LABS: ADD MAN DIFF? NO
[2018-05-05 06:00] LABS: ABNORMAL IP MESSAGE 1; BASOPHILS % 0.4 % (0.0-2.0); EOSINOPHILS # 0.2 10^3/ul (0.0-0.5); EOSINOPHILS % 2.6 % (0.0-7.0); HEMATOCRIT 19.4 % (37.0-47.0); LYMPHOCYTES # 0.7 10^3/ul (0.8-2.9); LYMPHOCYTES % 12.9 % (15.0-51.0); MEAN CORPUSCULAR HEMOGLOBIN 30.6 pg (29.0-33.0); MEAN CORPUSCULAR HGB CONC 32.5 g/dl (32.0-37.0); MEAN CORPUSCULAR VOLUME 94.2 fl (82.0-101.0); MEAN PLATELET VOLUME 10.8 fl (7.4-10.4); MONOCYTE # 0.5 10^3/ul (0.3-0.9); MONOCYTES % 8.1 % (0.0-11.0); NEUTROPHIL # 4.3 10^3/ul (1.6-7.5); NEUTROPHILS % 75.6 % (39.0-77.0); PLATELET COUNT 165 10^3/UL (140-415); RED BLOOD COUNT 2.06 10^6/ul (4.20-5.40); RED CELL DISTRIBUTION WIDTH 17.9 % (11.5-14.5)
[2018-05-05 06:00] LABS: WHITE BLOOD COUNT 5.7 10^3/ul (4.8-10.8)
[2018-05-05 06:07] LABS: POSITIVE DIFF @See below
[2018-05-05 06:09] LABS: HEMOGLOBIN 6.3 g/dl (12.0-16.0)
[2018-05-05] MEDS: LEVOTHYROXINE 125 MCG TAB PO (06:20)
[2018-05-05] MEDS: SEVELAMER CARBONATE 0.8 GM PKT PO ×3 (06:20→17:35)
[2018-05-05 06:23] LABS: ANION GAP 11 (8-16); BLOOD UREA NITROGEN 42 mg/dl (7-20); CALCIUM 8.7 mg/dl (8.4-10.2); CARBON DIOXIDE 27 mmol/L (21-31); CHLORIDE 100 mmol/L (97-110); CREATININE 2.42 mg/dl (0.44-1.00); GLUCOSE 71 mg/dl (70-220); POTASSIUM 3.8 mmol/L (3.5-5.1); SODIUM 134 mmol/L (135-144)
[2018-05-05] MEDS ORDERED: SODIUM CHLORIDE 0.9% 1L BAG IV (07:00)
[2018-05-05] MEDS ORDERED: ALBUMIN HUMAN 25% 50 ML IV (07:00)
[2018-05-05] MEDS: INSULIN ASPART [NOVOLOG] 3 ML PEN SC ×5 (07:35→21:00)
[2018-05-05] MEDS: FUROSEMIDE 40 MG TAB PO (09:00)
[2018-05-05] MEDS: LISINOPRIL 10 MG TAB PO (09:00)
[2018-05-05] MEDS: AMLODIPINE 10 MG TAB PO (09:00)
[2018-05-05] MEDS: FOLIC ACID 1 MG TAB PO (09:43)
[2018-05-05] MEDS: ASPIRIN (EC) 81 MG TAB PO (09:43)
[2018-05-05] MEDS: MULTIVIT/CA CARB/B CMPLX/FA TAB PO (09:43)
[2018-05-05] MEDS: DOXYCYCLINE 100 MG TAB PO (09:43)
[2018-05-05] MEDS: BALSAM PERU/CASTOR OIL 60 GM TUBE TOP ×2 (09:49→21:27)
[2018-05-05] MEDS: ALLOPURINOL 100 MG TAB PO (09:49)
[2018-05-05 15:22] LABS: IMMEDIATE SPIN CROSSMATCH 1 1
[2018-05-05] MEDS: DAPTOMYCIN 400 MG in SOD CHLORIDE 0.9% 100 ML IVPB (17:57)
[2018-05-05] MEDS: [UNRECOGNIZED DRUG - OTHER] IVPB (17:58)
[2018-05-05] MEDS: HEPARIN 1000 UNITS/ML 10 ML INJ CATHETER (18:24)
[2018-05-05] MEDS: INSULIN GLARGINE [LANtus] 3 ML PEN SC (21:00)
[2018-05-05] MEDS: LATANOPROST 0.005% 2.5 ML OPH BOTH EYES (21:20)
[2018-05-05] MEDS: ATORVASTATIN 40 MG TAB PO (21:22)
[2018-05-05] MEDS: DEXTROSE 5%-0.45% NACL 1,000 ML IV (22:25)
[2018-05-06] MEDS: INSULIN ASPART [NOVOLOG] 3 ML PEN SC ×6 (00:56→21:07)
[2018-05-06] MEDS: PROPOFOL 100 ML IV ×3 (04:39→19:49)
[2018-05-06 05:37] LABS: ADD MAN DIFF? NO
[2018-05-06 05:47] LABS: BASOPHILS % 0.7 % (0.0-2.0); EOSINOPHILS # 0.3 10^3/ul (0.0-0.5); EOSINOPHILS % 4.7 % (0.0-7.0); HEMATOCRIT 22.6 % (37.0-47.0); HEMOGLOBIN 7.5 g/dl (12.0-16.0); LYMPHOCYTES # 1.3 10^3/ul (0.8-2.9); LYMPHOCYTES % 22.3 % (15.0-51.0); MEAN CORPUSCULAR HEMOGLOBIN 30.6 pg (29.0-33.0); MEAN CORPUSCULAR HGB CONC 33.2 g/dl (32.0-37.0); MEAN CORPUSCULAR VOLUME 92.2 fl (82.0-101.0); MEAN PLATELET VOLUME 10.5 fl (7.4-10.4); MONOCYTE # 0.6 10^3/ul (0.3-0.9); MONOCYTES % 9.6 % (0.0-11.0); NEUTROPHIL # 3.6 10^3/ul (1.6-7.5); NEUTROPHILS % 62.3 % (39.0-77.0); PLATELET COUNT 170 10^3/UL (140-415); RED BLOOD COUNT 2.45 10^6/ul (4.20-5.40); RED CELL DISTRIBUTION WIDTH 18.4 % (11.5-14.5)
[2018-05-06 05:47] LABS: WHITE BLOOD COUNT 5.7 10^3/ul (4.8-10.8)
[2018-05-06 06:08] LABS: PHOSPHORUS 2.6 mg/dl (2.5-4.9)
[2018-05-06 06:15] LABS: ANION GAP 11 (8-16); BLOOD UREA NITROGEN 20 mg/dl (7-20); CALCIUM 8.6 mg/dl (8.4-10.2); CARBON DIOXIDE 29 mmol/L (21-31); CHLORIDE 99 mmol/L (97-110); CREATININE 2.22 mg/dl (0.44-1.00); GLUCOSE 118 mg/dl (70-220); POTASSIUM 3.1 mmol/L (3.5-5.1); SODIUM 136 mmol/L (135-144)
[2018-05-06] MEDS: LEVOTHYROXINE 125 MCG TAB PO (06:30)
[2018-05-06] MEDS: SEVELAMER CARBONATE 0.8 GM PKT PO ×4 (08:54→17:35)
[2018-05-06] MEDS: MULTIVIT/CA CARB/B CMPLX/FA TAB PO (08:55)
[2018-05-06] MEDS: ALLOPURINOL 100 MG TAB PO (08:55)
[2018-05-06] MEDS: FUROSEMIDE 40 MG TAB PO (08:55)
[2018-05-06] MEDS: ASPIRIN (EC) 81 MG TAB PO (08:55)
[2018-05-06] MEDS: FOLIC ACID 1 MG TAB PO (08:55)
[2018-05-06] MEDS: AMLODIPINE 10 MG TAB PO (08:56)
[2018-05-06] MEDS: LISINOPRIL 10 MG TAB PO (08:57)
[2018-05-06] MEDS: BALSAM PERU/CASTOR OIL 60 GM TUBE TOP ×2 (08:58→21:19)
[2018-05-06] MEDS: DEXMEDETOMIDINE HCL 200 MCG in SOD CHLORIDE 0.9% 48 ML IV ×4 (11:44→22:17)
[2018-05-06] MEDS: [UNRECOGNIZED DRUG - OTHER] IVPB (14:47)
[2018-05-06] MEDS: POTASSIUM CHLORIDE 100 ML IVPB (16:11)
[2018-05-06] MEDS: METOCLOPRAMIDE 10 MG INJ IV (21:01)
[2018-05-06] MEDS: ATORVASTATIN 40 MG TAB PO (21:02)
[2018-05-06] MEDS: LATANOPROST 0.005% 2.5 ML OPH BOTH EYES (21:02)
[2018-05-07] MEDS: DEXMEDETOMIDINE HCL 200 MCG in SOD CHLORIDE 0.9% 48 ML IV ×7 (00:48→22:51)
[2018-05-07] MEDS: INSULIN ASPART [NOVOLOG] 3 ML PEN SC ×6 (00:58→22:50)
[2018-05-07] MEDS: HEPARIN 1000 UNITS/ML 10 ML INJ CATHETER (06:09)
[2018-05-07] MEDS: LEVOTHYROXINE 125 MCG TAB PO (06:10)
[2018-05-07] MEDS: PANTOPRAZOLE 40 MG INJ IV (06:11)
[2018-05-07 06:53] LABS: ADD MAN DIFF? NO
[2018-05-07 06:59] LABS: BASOPHILS % 0.7 % (0.0-2.0); EOSINOPHILS # 0.5 10^3/ul (0.0-0.5); EOSINOPHILS % 8.3 % (0.0-7.0); HEMOGLOBIN 9.3 g/dl (12.0-16.0); LYMPHOCYTES # 1.2 10^3/ul (0.8-2.9); MEAN CORPUSCULAR HEMOGLOBIN 30.2 pg (29.0-33.0); MEAN CORPUSCULAR HGB CONC 33.2 g/dl (32.0-37.0); MEAN CORPUSCULAR VOLUME 90.9 fl (82.0-101.0); MEAN PLATELET VOLUME 10.3 fl (7.4-10.4); MONOCYTE # 0.6 10^3/ul (0.3-0.9); MONOCYTES % 10.3 % (0.0-11.0); NEUTROPHIL # 3.7 10^3/ul (1.6-7.5); NEUTROPHILS % 60.5 % (39.0-77.0); PLATELET COUNT 204 10^3/UL (140-415); RED BLOOD COUNT 3.08 10^6/ul (4.20-5.40); RED CELL DISTRIBUTION WIDTH 17.7 % (11.5-14.5)
[2018-05-07 07:17] LABS: CREATINE KINASE 94 IU/L (23-200)
[2018-05-07 07:49] LABS: ANION GAP 15 (8-16); BLOOD UREA NITROGEN 14 mg/dl (7-20); CALCIUM 9.1 mg/dl (8.4-10.2); CARBON DIOXIDE 29 mmol/L (21-31); CHLORIDE 100 mmol/L (97-110); CREATININE 1.64 mg/dl (0.44-1.00); GLUCOSE 136 mg/dl (70-220); PHOSPHORUS 2.2 mg/dl (2.5-4.9); POTASSIUM 3.5 mmol/L (3.5-5.1); SODIUM 140 mmol/L (135-144)
[2018-05-07] MEDS: SEVELAMER CARBONATE 0.8 GM PKT PO ×3 (07:51→17:07)
[2018-05-07] MEDS: FOLIC ACID 1 MG TAB PO (08:26)
[2018-05-07] MEDS: AMLODIPINE 10 MG TAB PO (08:26)
[2018-05-07] MEDS: METOCLOPRAMIDE 10 MG INJ IV ×3 (08:26→22:48)
[2018-05-07] MEDS: LISINOPRIL 10 MG TAB PO (08:26)
[2018-05-07] MEDS: MULTIVIT/CA CARB/B CMPLX/FA TAB PO (08:27)
[2018-05-07] MEDS: BALSAM PERU/CASTOR OIL 60 GM TUBE TOP ×2 (08:27→21:00)
[2018-05-07] MEDS: ASPIRIN (EC) 81 MG TAB PO (08:27)
[2018-05-07] MEDS: FUROSEMIDE 40 MG TAB PO (08:27)
[2018-05-07] MEDS: ALLOPURINOL 100 MG TAB PO (08:27)
[2018-05-07] MEDS: DAPTOMYCIN 400 MG in SOD CHLORIDE 0.9% 100 ML IVPB (12:56)
[2018-05-07 13:01] LABS: AADO2 Arterial 50.6 mmHg (7.0-24.0); Allen Test ACCEPTAB; Arterial Base Excess 2.3 mmol/L (-3.0-3); Arterial Blood Gas Oxygen Sat 98.4 mmHG (95.0-100.0); Arterial COHb 0.8 % (0.0-3.0); Arterial Fraction of Oxyhgb 97.5 % (93.0-99.0); Arterial HCO3 26.3 mmol/L (22.0-26.0); Arterial MetHb 0.1 % (0.0-1.5); Arterial Total Hemglobin 11.2 g/dl (12.0-18.0); Arterial pCO2 38.4 mmhg (35-45); Blood Gas PS 10; MODE VENT - CPAP; Site Right Radial
[2018-05-07] MEDS: [UNRECOGNIZED DRUG - OTHER] IVPB (13:43)
[2018-05-07] MEDS: PROPOFOL 100 ML IV ×2 (14:34→23:01)
[2018-05-07] MEDS: LATANOPROST 0.005% 2.5 ML OPH BOTH EYES (21:00)
[2018-05-07] MEDS: ATORVASTATIN 40 MG TAB PO (22:47)
[2018-05-08] MEDS: DEXMEDETOMIDINE HCL 200 MCG in SOD CHLORIDE 0.9% 48 ML IV ×5 (02:00→21:48)
[2018-05-08] MEDS: INSULIN ASPART [NOVOLOG] 3 ML PEN SC ×6 (05:00→21:00)
[2018-05-08 05:50] LABS: ADD MAN DIFF? NO; BASOPHILS % 0.7 % (0.0-2.0); EOSINOPHILS # 0.6 10^3/ul (0.0-0.5); HEMATOCRIT 27.4 % (37.0-47.0); LYMPHOCYTES # 0.9 10^3/ul (0.8-2.9); LYMPHOCYTES % 15.3 % (15.0-51.0); MEAN CORPUSCULAR HEMOGLOBIN 30.2 pg (29.0-33.0); MEAN CORPUSCULAR HGB CONC 32.8 g/dl (32.0-37.0); MEAN CORPUSCULAR VOLUME 91.9 fl (82.0-101.0); MEAN PLATELET VOLUME 10.3 fl (7.4-10.4); MONOCYTE # 0.6 10^3/ul (0.3-0.9); MONOCYTES % 10.5 % (0.0-11.0); NEUTROPHIL # 3.6 10^3/ul (1.6-7.5); NEUTROPHILS % 62.2 % (39.0-77.0); PLATELET COUNT 208 10^3/UL (140-415); RED BLOOD COUNT 2.98 10^6/ul (4.20-5.40); RED CELL DISTRIBUTION WIDTH 17.6 % (11.5-14.5)
[2018-05-08 05:50] LABS: WHITE BLOOD COUNT 5.8 10^3/ul (4.8-10.8)
[2018-05-08] MEDS: PANTOPRAZOLE 40 MG INJ IV (05:52)
[2018-05-08 06:21] LABS: ANION GAP 14 (8-16); BLOOD UREA NITROGEN 23 mg/dl (7-20); CALCIUM 9.2 mg/dl (8.4-10.2); CARBON DIOXIDE 26 mmol/L (21-31); CHLORIDE 101 mmol/L (97-110); CREATININE 2.61 mg/dl (0.44-1.00); GLUCOSE 147 mg/dl (70-220); POTASSIUM 3.4 mmol/L (3.5-5.1); SODIUM 138 mmol/L (135-144)
[2018-05-08 06:42] LABS: MAGNESIUM 2.1 mg/dl (1.7-2.5)
[2018-05-08 06:42] LABS: PHOSPHORUS 3.4 mg/dl (2.5-4.9)
[2018-05-08] MEDS: PROPOFOL 100 ML IV (06:47)
[2018-05-08] MEDS: SEVELAMER CARBONATE 0.8 GM PKT PO ×3 (09:24→17:27)
[2018-05-08] MEDS: METOCLOPRAMIDE 10 MG INJ IV ×3 (09:25→21:48)
[2018-05-08] MEDS: FUROSEMIDE 40 MG TAB PO (09:25)
[2018-05-08] MEDS: LISINOPRIL 10 MG TAB PO (09:26)
[2018-05-08] MEDS: ASPIRIN (EC) 81 MG TAB PO (09:26)
[2018-05-08] MEDS: MULTIVIT/CA CARB/B CMPLX/FA TAB PO (09:26)
[2018-05-08] MEDS: ALLOPURINOL 100 MG TAB PO (09:26)
[2018-05-08] MEDS: FOLIC ACID 1 MG TAB PO (09:27)
[2018-05-08] MEDS: AMLODIPINE 10 MG TAB PO (09:27)
[2018-05-08] MEDS: LEVOTHYROXINE 125 MCG TAB PO (09:27)
[2018-05-08] MEDS: BALSAM PERU/CASTOR OIL 60 GM TUBE TOP ×2 (09:31→21:49)
[2018-05-08] MEDS: POTASSIUM CHLORIDE 100 ML IVPB (11:19)
[2018-05-08] MEDS: [UNRECOGNIZED DRUG - OTHER] IVPB (14:40)
[2018-05-08] MEDS ORDERED: SODIUM CHLORIDE 0.9% 1L BAG IV (17:30)
[2018-05-08] MEDS: LATANOPROST 0.005% 2.5 ML OPH BOTH EYES (21:47)
[2018-05-08] MEDS: ATORVASTATIN 40 MG TAB PO (21:47)
[2018-05-09] MEDS: INSULIN ASPART [NOVOLOG] 3 ML PEN SC ×6 (01:00→21:00)
[2018-05-09] MEDS: PROPOFOL 100 ML IV ×2 (01:10→09:42)
[2018-05-09] MEDS: DEXMEDETOMIDINE HCL 200 MCG in SOD CHLORIDE 0.9% 48 ML IV ×4 (02:22→21:51)
[2018-05-09] MEDS: PANTOPRAZOLE 40 MG INJ IV (05:39)
[2018-05-09 07:43] LABS: ADD MAN DIFF? NO
[2018-05-09 07:46] LABS: WHITE BLOOD COUNT 5.2 10^3/ul (4.8-10.8)
[2018-05-09 07:46] LABS: BASOPHIL # 0.1 10^3/ul (0.0-0.1); EOSINOPHILS # 0.6 10^3/ul (0.0-0.5); EOSINOPHILS % 12.3 % (0.0-7.0); HEMATOCRIT 28.3 % (37.0-47.0); HEMOGLOBIN 9.3 g/dl (12.0-16.0); LYMPHOCYTES # 0.8 10^3/ul (0.8-2.9); LYMPHOCYTES % 15.9 % (15.0-51.0); MEAN CORPUSCULAR HEMOGLOBIN 30.4 pg (29.0-33.0); MEAN CORPUSCULAR HGB CONC 32.9 g/dl (32.0-37.0); MEAN CORPUSCULAR VOLUME 92.5 fl (82.0-101.0); MEAN PLATELET VOLUME 10.6 fl (7.4-10.4); MONOCYTE # 0.5 10^3/ul (0.3-0.9); NEUTROPHIL # 3.2 10^3/ul (1.6-7.5); NEUTROPHILS % 61.6 % (39.0-77.0); PLATELET COUNT 206 10^3/UL (140-415); RED BLOOD COUNT 3.06 10^6/ul (4.20-5.40); RED CELL DISTRIBUTION WIDTH 17.3 % (11.5-14.5)
[2018-05-09 08:10] LABS: ANION GAP 15 (8-16); BLOOD UREA NITROGEN 30 mg/dl (7-20); CALCIUM 9.7 mg/dl (8.4-10.2); CARBON DIOXIDE 23 mmol/L (21-31); CHLORIDE 105 mmol/L (97-110); CREATININE 2.86 mg/dl (0.44-1.00); GLUCOSE 134 mg/dl (70-220); MAGNESIUM 2.2 mg/dl (1.7-2.5); PHOSPHORUS 3.9 mg/dl (2.5-4.9); POTASSIUM 3.5 mmol/L (3.5-5.1); SODIUM 139 mmol/L (135-144)
[2018-05-09] MEDS: ALLOPURINOL 100 MG TAB PO (08:12)
[2018-05-09] MEDS: AMLODIPINE 10 MG TAB PO (08:12)
[2018-05-09] MEDS: ASPIRIN (EC) 81 MG TAB PO (08:12)
[2018-05-09] MEDS: METOCLOPRAMIDE 10 MG INJ IV ×3 (08:12→21:42)
[2018-05-09] MEDS: LISINOPRIL 10 MG TAB PO (08:12)
[2018-05-09] MEDS: FOLIC ACID 1 MG TAB PO (08:12)
[2018-05-09] MEDS: SEVELAMER CARBONATE 0.8 GM PKT PO ×3 (08:13→17:45)
[2018-05-09] MEDS: FUROSEMIDE 40 MG TAB PO (08:13)
[2018-05-09] MEDS: LEVOTHYROXINE 125 MCG TAB PO (08:13)
[2018-05-09] MEDS: MULTIVIT/CA CARB/B CMPLX/FA TAB PO (08:13)
[2018-05-09] MEDS: BALSAM PERU/CASTOR OIL 60 GM TUBE TOP ×2 (08:14→21:47)
[2018-05-09 08:39] LABS: Allen Test ACCEPTAB; Site Right Radial
[2018-05-09 08:47] LABS: AADO2 Arterial 39.3 mmHg (7.0-24.0); Arterial Base Excess -0.2 mmol/L (-3.0-3); Arterial Blood Gas Oxygen Sat 98.8 mmHG (95.0-100.0); Arterial COHb 0.3 % (0.0-3.0); Arterial Fraction of Oxyhgb 98.5 % (93.0-99.0); Arterial HCO3 21.8 mmol/L (22.0-26.0); Arterial MetHb 0 % (0.0-1.5); Arterial Total Hemglobin 10.1 g/dl (12.0-18.0); Arterial pCO2 26.9 mmhg (35-45); MODE VENT - AC
[2018-05-09] MEDS: DAPTOMYCIN 400 MG in SOD CHLORIDE 0.9% 100 ML IVPB (13:00)
[2018-05-09] MEDS: [UNRECOGNIZED DRUG - OTHER] IVPB (17:19)
[2018-05-09] MEDS: HEPARIN 1000 UNITS/ML 10 ML INJ CATHETER (17:25)
[2018-05-09] MEDS: ATORVASTATIN 40 MG TAB PO (21:42)
[2018-05-10] MEDS ORDERED: ATROPINE 1 MG/10 ML SYRINGE (00:11)
[2018-05-10] MEDS: INSULIN ASPART [NOVOLOG] 3 ML PEN SC ×6 (01:18→21:00)
[2018-05-10] MEDS: LATANOPROST 0.005% 2.5 ML OPH BOTH EYES ×2 (03:40→21:00)
[2018-05-10 04:53] LABS: Allen Test ACCEPTAB; Arterial Base Excess 1.6 mmol/L (-3.0-3); Arterial Blood Gas Oxygen Sat 98.3 mmHG (95.0-100.0); Arterial COHb 0.4 % (0.0-3.0); Arterial Fraction of Oxyhgb 97.6 % (93.0-99.0); Arterial HCO3 25.6 mmol/L (22.0-26.0); Arterial MetHb 0.3 % (0.0-1.5); Arterial Total Hemglobin 9.6 g/dl (12.0-18.0); Arterial pCO2 37.9 mmhg (35-45); MODE VENT - AC; Site Right Radial
[2018-05-10 05:20] LABS: ADD MAN DIFF? NO
[2018-05-10 05:22] LABS: WHITE BLOOD COUNT 7.5 10^3/ul (4.8-10.8)
[2018-05-10 05:22] LABS: BASOPHILS % 0.5 % (0.0-2.0); EOSINOPHILS # 0.5 10^3/ul (0.0-0.5); EOSINOPHILS % 6.3 % (0.0-7.0); HEMATOCRIT 26.4 % (37.0-47.0); HEMOGLOBIN 8.3 g/dl (12.0-16.0); LYMPHOCYTES # 1.1 10^3/ul (0.8-2.9); MEAN CORPUSCULAR HEMOGLOBIN 30.1 pg (29.0-33.0); MEAN CORPUSCULAR HGB CONC 31.4 g/dl (32.0-37.0); MEAN CORPUSCULAR VOLUME 95.7 fl (82.0-101.0); MEAN PLATELET VOLUME 9.9 fl (7.4-10.4); MONOCYTE # 0.7 10^3/ul (0.3-0.9); MONOCYTES % 9.3 % (0.0-11.0); NEUTROPHIL # 5.1 10^3/ul (1.6-7.5); NEUTROPHILS % 68.5 % (39.0-77.0); PLATELET COUNT 179 10^3/UL (140-415); RED BLOOD COUNT 2.76 10^6/ul (4.20-5.40); RED CELL DISTRIBUTION WIDTH 17.4 % (11.5-14.5)
[2018-05-10 05:46] LABS: ANION GAP 12 (8-16); BLOOD UREA NITROGEN 21 mg/dl (7-20); CALCIUM 8.9 mg/dl (8.4-10.2); CARBON DIOXIDE 26 mmol/L (21-31); CHLORIDE 105 mmol/L (97-110); CREATININE 2.34 mg/dl (0.44-1.00); GLUCOSE 135 mg/dl (70-220); POTASSIUM 4.3 mmol/L (3.5-5.1); SODIUM 139 mmol/L (135-144)
[2018-05-10] MEDS: PANTOPRAZOLE 40 MG INJ IV (06:37)
[2018-05-10] MEDS: SEVELAMER CARBONATE 0.8 GM PKT PO ×3 (06:37→17:24)
[2018-05-10] MEDS: LEVOTHYROXINE 125 MCG TAB PO (06:37)
[2018-05-10] MEDS: DEXMEDETOMIDINE HCL 200 MCG in SOD CHLORIDE 0.9% 48 ML IV (06:46)
[2018-05-10] MEDS: LISINOPRIL 10 MG TAB PO (08:11)
[2018-05-10] MEDS: ALLOPURINOL 100 MG TAB PO (08:11)
[2018-05-10] MEDS: MULTIVIT/CA CARB/B CMPLX/FA TAB PO (08:12)
[2018-05-10] MEDS: FOLIC ACID 1 MG TAB PO (08:12)
[2018-05-10] MEDS: FUROSEMIDE 40 MG TAB PO (08:12)
[2018-05-10] MEDS: ACETAMINOPHEN 325 MG TAB PO (08:12)
[2018-05-10] MEDS: AMLODIPINE 10 MG TAB PO (08:13)
[2018-05-10] MEDS: ASPIRIN (EC) 81 MG TAB PO (08:13)
[2018-05-10] MEDS: METOCLOPRAMIDE 10 MG INJ IV ×3 (08:14→22:03)
[2018-05-10] MEDS: BALSAM PERU/CASTOR OIL 60 GM TUBE TOP ×2 (08:14→22:13)
[2018-05-10 10:26] LABS: AADO2 Arterial 56.7 mmHg (7.0-24.0); Allen Test ACCEPTAB; Arterial Base Excess 2.3 mmol/L (-3.0-3); Arterial Blood Gas Oxygen Sat 97.8 mmHG (95.0-100.0); Arterial COHb 0.5 % (0.0-3.0); Arterial HCO3 27.4 mmol/L (22.0-26.0); Arterial MetHb 0.3 % (0.0-1.5); Arterial Total Hemglobin 9.7 g/dl (12.0-18.0); Arterial pCO2 44.7 mmhg (35-45); Blood Gas PS 10; MODE VENT - CPAP; Site Right Radial
[2018-05-10] MEDS: PROPOFOL 100 ML IV ×4 (12:00→22:21)
[2018-05-10] MEDS: [UNRECOGNIZED DRUG - OTHER] IVPB (13:53)
[2018-05-10 14:31] LABS: AADO2 Arterial 578.7 mmHg (7.0-24.0); Allen Test ACCEPTAB; Arterial Base Excess -0.2 mmol/L (-3.0-3); Arterial Blood Gas Oxygen Sat 97.6 mmHG (95.0-100.0); Arterial COHb 0.5 % (0.0-3.0); Arterial Fraction of Oxyhgb 96.8 % (93.0-99.0); Arterial HCO3 23.7 mmol/L (22.0-26.0); Arterial MetHb 0.3 % (0.0-1.5); Arterial Total Hemglobin 9.8 g/dl (12.0-18.0); Arterial pCO2 35.3 mmhg (35-45); MODE VENT - AC; Site Right Radial
[2018-05-10] MEDS: ATORVASTATIN 40 MG TAB PO (22:05)
[2018-05-11] MEDS: INSULIN ASPART [NOVOLOG] 3 ML PEN SC ×6 (01:00→21:08)
[2018-05-11 04:55] LABS: AADO2 Arterial 66.4 mmHg (7.0-24.0); Allen Test ACCEPTAB; Arterial Base Excess -0.5 mmol/L (-3.0-3); Arterial Blood Gas Oxygen Sat 98.7 mmHG (95.0-100.0); Arterial COHb 0.7 % (0.0-3.0); Arterial Fraction of Oxyhgb 97.7 % (93.0-99.0); Arterial HCO3 20.6 mmol/L (22.0-26.0); Arterial MetHb 0.3 % (0.0-1.5); Arterial Total Hemglobin 8.7 g/dl (12.0-18.0); Arterial pCO2 22.4 mmhg (35-45); MODE VENT - AC; Site Right Radial
[2018-05-11] MEDS: PANTOPRAZOLE 40 MG INJ IV (05:11)
[2018-05-11 05:19] LABS: ADD MAN DIFF? NO
[2018-05-11 05:25] LABS: BASOPHILS % 0.4 % (0.0-2.0); EOSINOPHILS # 0.5 10^3/ul (0.0-0.5); EOSINOPHILS % 4.6 % (0.0-7.0); HEMATOCRIT 25.4 % (37.0-47.0); HEMOGLOBIN 8.1 g/dl (12.0-16.0); LYMPHOCYTES # 1.3 10^3/ul (0.8-2.9); LYMPHOCYTES % 13.5 % (15.0-51.0); MEAN CORPUSCULAR HEMOGLOBIN 30.2 pg (29.0-33.0); MEAN CORPUSCULAR HGB CONC 31.9 g/dl (32.0-37.0); MEAN CORPUSCULAR VOLUME 94.8 fl (82.0-101.0); MEAN PLATELET VOLUME 10.6 fl (7.4-10.4); NEUTROPHILS % 71.2 % (39.0-77.0); PLATELET COUNT 170 10^3/UL (140-415); RED BLOOD COUNT 2.68 10^6/ul (4.20-5.40); RED CELL DISTRIBUTION WIDTH 17.2 % (11.5-14.5)
[2018-05-11 05:25] LABS: WHITE BLOOD COUNT 9.8 10^3/ul (4.8-10.8)
[2018-05-11 05:47] LABS: ALANINE AMINOTRANSFERASE 21 IU/L (13-69); ALBUMIN 3.5 g/dl (3.3-4.9); ALBUMIN/GLOBULIN RATIO 0.87; ALKALINE PHOSPHATASE 117 IU/L (42-121); ANION GAP 13 (8-16); ASPARTATE AMINO TRANSFERASE 23 IU/L (15-46); BLOOD UREA NITROGEN 30 mg/dl (7-20); CALCIUM 9.3 mg/dl (8.4-10.2); CARBON DIOXIDE 25 mmol/L (21-31); CHLORIDE 107 mmol/L (97-110); CREATININE 3.66 mg/dl (0.44-1.00); GLUCOSE 138 mg/dl (70-220); SODIUM 142 mmol/L (135-144); TOTAL PROTEIN 7.5 g/dl (6.1-8.1)
[2018-05-11 05:54] LABS: POTASSIUM 2.8 mmol/L (3.5-5.1)
[2018-05-11] MEDS: POTASSIUM CHLORIDE 50 ML IVPB ×2 (06:48→11:10)
[2018-05-11] MEDS: PROPOFOL 100 ML IV ×3 (07:36→23:18)
[2018-05-11] MEDS: ACETAMINOPHEN 325 MG TAB PO (08:36)
[2018-05-11] MEDS: LISINOPRIL 10 MG TAB PO (08:36)
[2018-05-11] MEDS: AMLODIPINE 10 MG TAB PO (08:36)
[2018-05-11] MEDS: ASPIRIN (EC) 81 MG TAB PO (08:36)
[2018-05-11] MEDS: ALLOPURINOL 100 MG TAB PO (08:36)
[2018-05-11] MEDS: FOLIC ACID 1 MG TAB PO (08:36)
[2018-05-11] MEDS: FUROSEMIDE 40 MG TAB PO (08:37)
[2018-05-11] MEDS: LEVOTHYROXINE 150 MCG TAB PO (08:37)
[2018-05-11] MEDS: MULTIVIT/CA CARB/B CMPLX/FA TAB PO (08:37)
[2018-05-11] MEDS: BALSAM PERU/CASTOR OIL 60 GM TUBE TOP ×2 (08:39→21:01)
[2018-05-11] MEDS: METOCLOPRAMIDE 10 MG INJ IV ×3 (08:39→21:01)
[2018-05-11] MEDS: SEVELAMER CARBONATE 0.8 GM PKT PO ×3 (08:39→18:37)
[2018-05-11] MEDS: DAPTOMYCIN 400 MG in SOD CHLORIDE 0.9% 100 ML IVPB (13:49)
[2018-05-11] MEDS: DOCUSATE SODIUM 10 MG/ML (10ML CUP) NGT (15:41)
[2018-05-11] MEDS ORDERED: HEPARIN 1000 UNITS/ML 10 ML INJ CATHETER (18:00)
[2018-05-11] MEDS ORDERED: SODIUM CHLORIDE 0.9% 1L BAG IV (18:00)
[2018-05-11] MEDS ORDERED: ALBUMIN HUMAN 25% 50 ML IV (18:00)
[2018-05-11] MEDS: ATORVASTATIN 40 MG TAB PO (21:04)
[2018-05-11] MEDS: LATANOPROST 0.005% 2.5 ML OPH BOTH EYES (21:52)
[2018-05-12] MEDS: INSULIN ASPART [NOVOLOG] 3 ML PEN SC ×6 (01:13→21:00)
[2018-05-12 05:36] LABS: ADD MAN DIFF? NO
[2018-05-12 05:40] LABS: BASOPHIL # 0.1 10^3/ul (0.0-0.1); BASOPHILS % 0.7 % (0.0-2.0); EOSINOPHILS % 9.5 % (0.0-7.0); HEMATOCRIT 25.3 % (37.0-47.0); HEMOGLOBIN 7.7 g/dl (12.0-16.0); LYMPHOCYTES # 1.4 10^3/ul (0.8-2.9); LYMPHOCYTES % 13.8 % (15.0-51.0); MEAN CORPUSCULAR HGB CONC 30.4 g/dl (32.0-37.0); MEAN CORPUSCULAR VOLUME 98.4 fl (82.0-101.0); MEAN PLATELET VOLUME 11.5 fl (7.4-10.4); MONOCYTE # 0.9 10^3/ul (0.3-0.9); MONOCYTES % 9.3 % (0.0-11.0); NEUTROPHIL # 6.6 10^3/ul (1.6-7.5); NEUTROPHILS % 66.2 % (39.0-77.0); PLATELET COUNT 188 10^3/UL (140-415); RED BLOOD COUNT 2.57 10^6/ul (4.20-5.40); RED CELL DISTRIBUTION WIDTH 17.1 % (11.5-14.5)
[2018-05-12] MEDS: PANTOPRAZOLE 40 MG INJ IV (05:50)
[2018-05-12 06:40] LABS: ANION GAP 11 (8-16); BLOOD UREA NITROGEN 46 mg/dl (7-20); CALCIUM 9.2 mg/dl (8.4-10.2); CARBON DIOXIDE 25 mmol/L (21-31); CHLORIDE 110 mmol/L (97-110); CREATININE 4.37 mg/dl (0.44-1.00); GLUCOSE 171 mg/dl (70-220); MAGNESIUM 2.5 mg/dl (1.7-2.5); PHOSPHORUS 4.6 mg/dl (2.5-4.9); POTASSIUM 3.4 mmol/L (3.5-5.1); SODIUM 143 mmol/L (135-144)
[2018-05-12] MEDS: METOCLOPRAMIDE 10 MG INJ IV ×3 (08:35→21:45)
[2018-05-12] MEDS: SEVELAMER CARBONATE 0.8 GM PKT PO ×3 (08:35→17:08)
[2018-05-12] MEDS: LEVOTHYROXINE 150 MCG TAB PO (08:36)
[2018-05-12] MEDS: FUROSEMIDE 40 MG TAB PO (08:36)
[2018-05-12] MEDS: MULTIVIT/CA CARB/B CMPLX/FA TAB PO (08:36)
[2018-05-12] MEDS: ALLOPURINOL 100 MG TAB PO (08:36)
[2018-05-12] MEDS: ASPIRIN (EC) 81 MG TAB PO (08:36)
[2018-05-12] MEDS: FOLIC ACID 1 MG TAB PO (08:36)
[2018-05-12] MEDS: BALSAM PERU/CASTOR OIL 60 GM TUBE TOP ×2 (08:37→21:00)
[2018-05-12] MEDS: ALBUMIN HUMAN 25% 50 ML IV ×2 (10:56→12:47)
[2018-05-12] MEDS: HEPARIN 1000 UNITS/ML 10 ML INJ CATHETER (12:37)
[2018-05-12 15:06] LABS: AADO2 Arterial 56.4 mmHg (7.0-24.0); Allen Test ACCEPTAB; Arterial Base Excess 2.9 mmol/L (-3.0-3); Arterial Blood Gas Oxygen Sat 97.7 mmHG (95.0-100.0); Arterial COHb 0.9 % (0.0-3.0); Arterial Fraction of Oxyhgb 96.7 % (93.0-99.0); Arterial HCO3 27.9 mmol/L (22.0-26.0); Arterial MetHb 0.1 % (0.0-1.5); Arterial Total Hemglobin 8.1 g/dl (12.0-18.0); Arterial pCO2 44.9 mmhg (35-45); Blood Gas PS 10; MODE VENT - CPAP; Site Right Radial
[2018-05-12 15:41] LABS: POTASSIUM 3.2 mmol/L (3.5-5.1)
[2018-05-12 20:04] LABS: Allen Test ACCEPTAB; Arterial Base Excess 0.5 mmol/L (-3.0-3); Arterial Blood Gas Oxygen Sat 98.5 mmHG (95.0-100.0); Arterial COHb 0.4 % (0.0-3.0); Arterial Fraction of Oxyhgb 97.9 % (93.0-99.0); Arterial HCO3 31.8 mmol/L (22.0-26.0); Arterial MetHb 0.2 % (0.0-1.5); Arterial Total Hemglobin 10.3 g/dl (12.0-18.0); Arterial pCO2 102.2 mmhg (35-45); MODE NASAL CANNULA; Site Right Radial
[2018-05-12] MEDS: ATORVASTATIN 40 MG TAB PO (21:00)
[2018-05-12] MEDS: LATANOPROST 0.005% 2.5 ML OPH BOTH EYES (21:46)
[2018-05-12] MEDS ORDERED: morphine 2 MG INJ IV (22:00)
[2018-05-13] MEDS: PROPOFOL 100 ML IV
[2018-05-13] MEDS: INSULIN ASPART [NOVOLOG] 3 ML PEN SC ×3 (00:09→09:00)
[2018-05-13 05:13] LABS: ADD MAN DIFF? NO
[2018-05-13 05:18] LABS: WHITE BLOOD COUNT 13.4 10^3/ul (4.8-10.8)
[2018-05-13 05:18] LABS: BASOPHIL # 0.1 10^3/ul (0.0-0.1); BASOPHILS % 0.7 % (0.0-2.0); EOSINOPHILS # 0.8 10^3/ul (0.0-0.5); EOSINOPHILS % 5.8 % (0.0-7.0); HEMATOCRIT 33.2 % (37.0-47.0); HEMOGLOBIN 9.7 g/dl (12.0-16.0); LYMPHOCYTES # 1.7 10^3/ul (0.8-2.9); LYMPHOCYTES % 12.4 % (15.0-51.0); MEAN CORPUSCULAR HEMOGLOBIN 30.1 pg (29.0-33.0); MEAN CORPUSCULAR HGB CONC 29.2 g/dl (32.0-37.0); MEAN CORPUSCULAR VOLUME 103.1 fl (82.0-101.0); MEAN PLATELET VOLUME 10.5 fl (7.4-10.4); MONOCYTE # 1.2 10^3/ul (0.3-0.9); MONOCYTES % 8.9 % (0.0-11.0); NEUTROPHIL # 9.6 10^3/ul (1.6-7.5); NEUTROPHILS % 71.2 % (39.0-77.0); PLATELET COUNT 225 10^3/UL (140-415); RED BLOOD COUNT 3.22 10^6/ul (4.20-5.40); RED CELL DISTRIBUTION WIDTH 16.6 % (11.5-14.5)
[2018-05-13] MEDS: PANTOPRAZOLE 40 MG INJ IV (05:26)
[2018-05-13 05:48] LABS: ANION GAP 15 (8-16); BLOOD UREA NITROGEN 24 mg/dl (7-20); CALCIUM 9.5 mg/dl (8.4-10.2); CARBON DIOXIDE 31 mmol/L (21-31); CHLORIDE 103 mmol/L (97-110); CREATININE 2.85 mg/dl (0.44-1.00); GLUCOSE 144 mg/dl (70-220); MAGNESIUM 2.4 mg/dl (1.7-2.5); PHOSPHORUS 7.4 mg/dl (2.5-4.9); POTASSIUM 4.2 mmol/L (3.5-5.1); SODIUM 145 mmol/L (135-144)
[2018-05-13] MEDS: LEVOTHYROXINE 150 MCG TAB PO (07:00)
[2018-05-13] MEDS: SEVELAMER CARBONATE 0.8 GM PKT PO (07:35)
[2018-05-13] MEDS: ASPIRIN (EC) 81 MG TAB PO (09:00)
[2018-05-13] MEDS: METOCLOPRAMIDE 10 MG INJ IV (09:00)
[2018-05-13] MEDS: MULTIVIT/CA CARB/B CMPLX/FA TAB PO (09:00)
[2018-05-13] MEDS: ALLOPURINOL 100 MG TAB PO (09:00)
[2018-05-13] MEDS: FOLIC ACID 1 MG TAB PO (09:00)
[2018-05-13] MEDS: FUROSEMIDE 40 MG TAB PO (09:00)
[2018-05-13] MEDS: BALSAM PERU/CASTOR OIL 60 GM TUBE TOP (09:47)
[2018-05-13] MEDS ORDERED: ACETYLCYSTEINE 20% 4 ML VIAL NEB (10:00)
[2018-05-13] MEDS ORDERED: ALBUTEROL/IPRATROPIUM (NEB) 3 ML AMP HHN (14:00)
== END 2018-05-13 20:09 | disposition expired ==
LOC: TEL 04-30 16:52 → ICU 05-04 11:12 → E/R 06:07 → ICU 05-04 11:26 → TEL 07:34
PROC: 0BH17EZ Insertion of Endotracheal Airway into Trachea, Via Natural or Artificial Opening (ICD-10-PCS; principal; 2018-04-28 11:16)
PROC: 5A1955Z Respiratory Ventilation, Greater than 96 Consecutive Hours (ICD-10-PCS; 2018-04-28 11:16)
PROC: 30233N1 Transfusion of Nonautologous Red Blood Cells into Peripheral Vein, Percutaneous Approach (ICD-10-PCS; 2018-04-28 11:16)
PROC: 05PY33Z Removal of Infusion Device from Upper Vein, Percutaneous Approach (ICD-10-PCS; 2018-04-28 11:16)
PROC: 05H533Z Insertion of Infusion Device into Right Subclavian Vein, Percutaneous Approach (ICD-10-PCS; 2018-04-28 11:16)
PROC: 5A1D70Z Performance of Urinary Filtration, Intermittent, Less than 6 Hours Per Day (ICD-10-PCS; 2018-04-28 11:16)
DX: T82.7XXA Infection and inflammatory reaction due to other cardiac and vascular devices, implants and grafts, initial encounter (principal); I33.0 Acute and subacute infective endocarditis; I21.A1 Myocardial infarction type 2; A41.02 Sepsis due to Methicillin resistant Staphylococcus aureus; J96.01 Acute respiratory failure with hypoxia; J69.0 Pneumonitis due to inhalation of food and vomit; N18.6 End stage renal disease; G92 Toxic encephalopathy; J81.1 Chronic pulmonary edema; I12.0 Hypertensive chronic kidney disease with stage 5 chronic kidney disease or end stage renal disease; G93.1 Anoxic brain damage, not elsewhere classified; E87.2 Acidosis; R78.81 Bacteremia; E11.9 Type 2 diabetes mellitus without complications; Z95.0 Presence of cardiac pacemaker; E78.5 Hyperlipidemia, unspecified; M10.9 Gout, unspecified; H57.02 Anisocoria; R29.715 NIHSS score 15; I46.9 Cardiac arrest, cause unspecified; D64.9 Anemia, unspecified; I70.202 Unspecified atherosclerosis of native arteries of extremities, left leg; I70.235 Atherosclerosis of native arteries of right leg with ulceration of other part of foot; L97.519 Non-pressure chronic ulcer of other part of right foot with unspecified severity; H10.9 Unspecified conjunctivitis
CPT/HCPCS: 31500; 36415; 36430; 36600; 70450; 70496; 70498; 71045; 80048; 80053; 80061; 80202; 82550; 82553; 82803; 82962; 83036; 83605; 83735; 83880; 84100; 84132; 84443; 84484; 85025; 85610; 85730; 86850; 86900; 86901; 86920; 87040; 87070; 87081; 87340; 90935; 93005; 93306; 93922; 94002; 94003; 94640; 94644; 94660; 94770; 96374; 96375; 99291-25